=== PATIENT | female | born 1960 | race Caucasian/White ===

== ENCOUNTER → 2017-05-03 11:15 | Outpatient (CLI) | payer OTHER, SELFPAY ==
[2017-05-03 13:57] LABS: Absolute Lymphocyte Count 1.47 X10^3/ul (0.83-4.51); Basophil# 0.01 X10^3/uL; Basophil% 0.2 % (0-1); Eosinophil# 0.24 X10^3/uL; Eosinophils% 3.8 % (0-5); Hematocrit 37.9 % (37-47); Hemoglobin 12.1 g/dl (12.0-15.0); Lymphocyte # 1.47 X10^3/ul (4.0); Lymphocyte % 23.2 % (19-41); Mean Corp Hgb Conc 31.9 g/gl (32-36); Mean Corpuscular Hgb 28.3 pg (27.0-32.0); Mean Corpuscular Volume 88.8 fL (81-99); Mean Platelet Vol. 11.3 fl (6.2-12.0); Monocyte# 0.57 X10^3/uL; Neutrophil # 4.04 X10^3/uL (2.7-7.7); Neutrophil % 63.8 % (47-70); Platelet Count 230 K/mm3 (150-450); RBC Distribution Width CV 13.5 % (11.6-14.6); RBC Distribution Width SD 43.7 fl (35.1-43.9); Red Blood Count 4.27 M/mm3 (4.2-5.4); White Blood Count 6.3 K/mm3 (4.4-11.0)
[2017-05-03 13:59] LABS: POSITIVE COUNT NO; POSITIVE DIFFERENTIAL NO; POSITIVE MORPHOLOGY NO
[2017-05-03 14:24] LABS: AST(SGOT) 17 U/L (15-37); Alanine Aminotransfer ALT/SGPT 31 U/L (13-56); Albumin, Serum 3.7 g/dL (3.2-5.0); Alkaline Phosphatase 86 U/L (45-117); Anion Gap 8 (5-15); BUN 19 mg/dL (7-18); BUN/Creat Ratio 34.7 RATIO (10-20); Calcium,Total 9.6 mg/dL (8.5-10.1); Chloride 106 mmol/L (98-107); Creatinine, Serum 0.55 mg/dL (0.55-1.02); EST Glomerular Filtration Rate 123 mL/min (>60); Est Glom Filt Rate - Afr Amer 148 mL/min (>60); Globulin 3.8 g/dL (2.2-4.2); Glucose 63 mg/dL (74-106); Potassium 3.7 mmol/L (3.5-5.1); Protein, Total 7.5 g/dL (6.4-8.2); Sodium Level 141 mmol/L (136-145)
== END ==
PROVIDERS: Visit Provider Internal Medicine Rheumatology
DX: L40.59 Other psoriatic arthropathy (principal); Z79.899 Other long term (current) drug therapy; L40.8 Other psoriasis; L52 Erythema nodosum; M21.40 Flat foot [pes planus] (acquired), unspecified foot; I10 Essential (primary) hypertension; E03.9 Hypothyroidism, unspecified
CPT/HCPCS: 36415; 80053; 85025

== ENCOUNTER → 2017-05-08 12:04 | Outpatient (CLI) | payer OTHER, SELFPAY ==
--- NOTE | 2017-05-08 12:06 | HPBI_ITS ---
MAMMOGRAPHY - BILATERAL SCREENING REASON FOR EXAM: Female, 56 years old. Routine annual screening examination. PERTINENT HISTORY: Non-contributory. TECHNIQUE: Digital bilateral breast nicolasa (3D mammographic acquisition) in the CC and MLO projections. 2-D mediolateral oblique (MLO) and craniocaudad (CC) views of both breasts were obtained. CAD: Full Field Digital Mammography with Computer Added Detection was performed. COMPARISON: Comparison is made with prior study dated June 15, 2015 and July 01, 2013. FINDINGS: Breast Composition: There are scattered areas of fibroglandular density. There are no dominant masses or suspicious calcifications. No other significant abnormalities are identified. There has been no significant change since the prior study. HPBI/SCREENING MAMM (CAD), BILAT IMPRESSION: Stable bilateral screening mammogram. Yearly follow-up mammogram recommended. (A) ASSESSMENT CATEGORY: BIRADS Category 1: Negative. A letter regarding these results will be sent to the patient by the facility within 30 days. Approximately 10% of breast cancers are not detected by mammography. A normal mammogram should not delay biopsy of a clinically suspicious abnormality. [id number] Electronically Signed: Noel Liz MD at 13:54 EST Tel [phone], Service support ,
== END ==
PROVIDERS: Visit Provider Obstetrics & Gynecology
DX: Z12.31 Encounter for screening mammogram for malignant neoplasm of breast (principal)
CPT/HCPCS: 77063; 77067

== ENCOUNTER 2017-05-13 07:05 | Day surgery (SDC) | payer OTHER, SELFPAY ==
[2017-05-13 07:37] VITALS: BP 139/84; PULSE 65; RESP 16; TEMP 37.1; O2SAT 99; BMI 32.5
--- NOTE | 2017-05-13 07:50 | HP.PCM_ITS ---
Past Medical/Surgical History - Planned Operation Planned Operative Procedure/s: colonoscopy/open access Date of Operative Procedure: 05/13/17 Permit Signed: No S.O.S: No Is This Patient Having a Total Joint: No - Previous Hospitalizations/Surgeries HX Hospitalizations: Yes HX of Surgeries: hernia repair 2010. hysterectomy 2011. 1981 hip surgery/ recosnstruction right. 1984 removed pins from right hip. 1986 tubal ligation. hospitalized 4 yrs ago d/t chest pain Any Problems With Anesthesia: No You/Your Family Experience Fever (Hyperthermia) With Anes: No Cholinesterase deficiency: No - Cardiovascular Hx Chest Pain within Last 2 months: No Hx of Irregular Heartbeat and/or Afib: No Hx Heart Attack: No Hx Congestive Heart Failure: No Hx Rheumatic Fever: No Hx Hypertension: Yes - controlled with med Hx Internal Defibrillator: No Hx Pacemaker: No Hx Cardiac Catheterization: No Hx Cardiac Surgery/Stents/Etc.: No Hx Stress Test: Yes - stress echo 2011 HX Edema: No Hx Pain in Legs when Walking/Leg Cramps: No - Respiratory Chronic Cough: No HX of Shortness of Breath: Yes - slightly sob with 2 flights of stairs Hoarseness: No Hx Chronic Obstructive Pulmonary Disease (COPD): No Hx Asthma: No Hx Emphysema: No Hx Sleep Apnea: No CPAP: No BIPAP: No Hx Oxygen Use at Home: No Hx Respiratory Tract Infection/Cold (presently): No Do You Snore Loudly (louder than talking or can be heard): No Do You Often Feel Tired/ Fatigued/ Sleepy Dring Daytime?: No Has Anyone Observed You Stop Breathing During Sleep?: No Result (for STOP score): Negative Hx Smoking: Yes - quit 03/26 ppd for 5-6 yrs Smoking Status: Former smoker - Gastrointestinal Hx Gastroesophageal Reflux: No Hx Gastrointestinal Disorders: No Hx Gastrointestinal Bleed: No Hx Ulcer: No Hx Hiatal Hernia: No Difficulty Chewing/Swallowing: No Recent Onset of Swallowing Problems: No Special diet followed at home: No Hx Unplanned Weight Loss of 20#: No HX Unplanned Weight Gain of 20#: No - Neurological Hx Seizures: No HX Syncope/Blackout Spells/Unconsciousness: No Hx CVA/Stroke: No Hx Transient Ischemic Attacks (TIA): No Hx Multiple Sclerosis: No Hx Parkinson's Disease: No Hx Head/Neck Injury: No Hx Headaches: No Hx Back Injury/Pain: No Recent Onset of Speech Difficulty: No Restless Legs: No Does patient have nerve stimulator: No Patient instructed to have device shut off: No Rep notified?: No - Blood Disorder Hx Leukemia: No Bleeding Tendencies: No Hx Deep Vein Thrombosis: No Hx High Cholesterol: No Blood Transmitted Disease: No Hx Hepatitis: No Hx Cirrhosis: No Hx Anemia: Yes - in the past Hx Blood Disorders: No - Reproduction : No Is Patient Lactating: No Hx Hysterectomy: Yes Hx Tubal Ligation: Yes Are You Post Menopause: No - Genitourinary Hx Renal Disease: No Hx Dialysis: No - Musculoskeletal Hx Arthritis: Yes - psoratic Hx Rheumatoid Arthritis: No Hx Gout: No Recent Onset of an Orthopedic Problem: No - Endocrine Hx Diabetes: No Thyroid Disease: Yes - on synthroid Hx Steroid Therapy: Yes - prednisone within last yr - Psycho/Social Hx Substance Use: No Hx Alcohol Use: No Hx Anxiety: No Hx Depression: No Mental Illness: No Hx Dementia: No - Miscellaneous Hx Cancer: No Recent Exposure to Contagious Disease: No Active MRSA: No Hx of C-Diff: No Any Loose Teeth: No Allergies nitrous oxide Adverse Reaction (Verified 05/07/17 09:07) Unknown Home Medications Medication Instructions Recorded Levothyroxine [Synthroid] 75 mcg PO DAILY #30 tablet 12/01/14 Adalimumab [Humira] 40 mg SQ Q14D 05/07/17 Losartan/Hydrochlorothiazide 1 tab PO DAILY 05/07/17 [Hyzaar 100-25 Tablet] Maternal No pertinent history Paternal Hypertension - Discharge Is Pt Admitted From a Residential, or a Shelter: No Who Could Help: family After D/C, Where Do you Plan to Go: Return Home - Physical Exam General: Alert, Oriented x3, Cooperative Neck: No JVD Lungs: Normal air movement Cardiovascular: Regular rate, Regular Rhythm Abdomen: Soft, Non Tender, Non-Distended Vital Signs Temp Pulse Resp BP Pulse Ox 98.7 F 65 16 139/84 H 99 05/13/17 07:37 05/13/17 07:37 05/13/17 07:37 05/13/17 07:37 05/13/17 07:37 Oxygen Delivery Method Room Air Weight: 214 lb 1.102 oz Body Mass Index (BMI) 32.5 Assessment/Plan 56-year-old female for screening colonoscopy 1. The patient reports she is having no issues currently. She has no abdominal pain or blood in her stool. She is having no inadvertent weight loss. She has never had a colonoscopy in the past. She has no family history of colon cancer. 2. I explained endoscopy in detail to the patient. I explained the risks including but not limited to stroke or heart attack with anesthesia, perforation of the GI tract, bleeding, infection. I explained that any of these could necessitate further emergency surgery. The patient understands and all questions were answered sufficiently. The patient wishes to proceed with procedure. Santhosh Emmanuel MD Pager: [facility] [address] [place] [address] Office: Surgery Risks - Colonoscopy Risks Include but are not Limited To: Risks include but are not limited to: Bleeding, perforation requiring further surgery, inability to complete colonoscopy requiring barium enema.
--- NOTE | 2017-05-13 08:14 | COLBX_PTH ---
PATIENT: ARLETH CALLAHAN LOC: EN U#:[id number] AGE/SX: 56/F ROOM: RE05/13/[address]: Dr. Santhosh Emmanuel MD : 1960 BED: DIS: 05/13/2017 SPEC #: [id number] RECD: 05/13/17 09:28 STATUS: JAYASHREE VANESSA #: [id number] CORNELL: 05/13/17 08:[address]: Santhosh Emmanuel DEPT: SURGICAL PATHOLOGY RECD BY: Michel Ruelas ENTERED: 05/13/17 13:09 SP TYPE: COLON BX OTHR DR: Out of Town Doctor Tissues: A - Transverse colon B - Sigmoid colon biopsy Procedures: Surgery Specimen Level IV HEADER OPERATION: Colonoscopy with biopsy PRE-OP DIAGNOSIS: Screening TISSUE SUBMITTED: A ? Biopsy of transverse colon polyp, B ? Biopsy sigmoid polyp MICROSCOPIC DIAGNOSIS A. Transverse colon polyp, biopsy: Polypoid fragments of colonic mucosa. B. Sigmoid colon polyp, biopsy: Hyperplastic polyp. Melanosis coli. AM:patricia 05/14/17 COMMENT A. Neither adenomatous nor hyperplastic change is seen. Clinical correlation is suggested. MICROSCOPIC DESCRIPTION Slides are reviewed. GROSS DESCRIPTION A - Received in fixative is one container labeled with the patient's name and designated transverse colon polyp. The specimen consists of multiple irregular fragments of light prince soft tissue that in aggregate measure 0.6 x 0.3 x 0.1 cm. The specimen is totally submitted in one cassette. B - Received in fixative is one container labeled with the patient's name and designated sigmoid colon biopsy. The specimen consists of two irregular fragments of light prince soft tissue that in aggregate measure 0.3 x 0.2 x 0.1 cm. The specimen is totally submitted in one cassette. / AM:patricia 05/13/17 TC:5 CPT: 51774 x2
--- NOTE | 2017-05-13 08:27 | PCM.OPRPT ---
Problem List (1) Screen for colon cancer Status: Acute Report of Operation Date of Procedure: 05/13/17 Pre-Operative Diagnosis: Screening colonoscopy Post-Operative Diagnosis: 1. Transverse colon polyp. 2. Sigmoid colon polyp Surgery/Procedure Performed:: Colonoscopy with cold forceps biopsies Specimen's removed: 1. Transverse colon polyp. 2. Sigmoid colon polyp Description of Procedure: The major risks and benefits associated with the procedure were explained to the patient in detail. The patient verbalized understanding and agreement with the same. The patient was brought to the endoscopy suite. After adequate sedation was achieved, the patient was placed in the left lateral decubitus position and a digital rectal exam was performed. This examination was within normal limits. A well-lubricated colonoscope was then inserted into the rectum and advanced under direct visualization to the level of the cecum. The bowel prep was good. The cecum was identified by both visual and anatomic landmarks. A photograph was taken of the end of the cecum. The scope was then fully withdrawn while examining the color, texture, anatomy and integrity of the mucosa from the cecum to the anal canal. There was a small polyp in the mid transverse colon which was taken with cold forceps. There is also small polyp in the mid sigmoid which was removed completely in a piecemeal fashion with cold forceps. Otherwise the findings were consistent with normal colonic mucosa. Over 6 minutes were taken to examine the colonic mucosa. Upon reaching the rectum the scope was retroflexed to examine the distal rectal vault. The scope was then straightened and was completely retrieved upon exiting the anal canal and the procedure was terminated. The patient was then transferred to the recovery room in stable condition. Recommendations for follow up: Dependent on pathology
[2017-05-13 08:30] VITALS: BP 120/95; BP 139/84; PULSE 65; RESP 16; TEMP 36; O2SAT 98
[2017-05-13 08:35] VITALS: BP 115/79; BP 139/84; PULSE 60; RESP 16; O2SAT 100
[2017-05-13 08:40] VITALS: BP 135/79; BP 139/84; PULSE 62; RESP 16; O2SAT 98
[2017-05-13 08:45] VITALS: BP 110/87; BP 139/84; PULSE 60; RESP 16; TEMP 36.1; O2SAT 100
[2017-05-13 09:22] VITALS: BP 139/84
== END 2017-05-13 09:22 | disposition home or self-care (01) ==
LOC: EN 07:05 → AC 08:43
PROVIDERS: Visit Provider Surgery
PROC: 0DJD8ZZ Inspection of Lower Intestinal Tract, Via Natural or Artificial Opening Endoscopic (ICD-10-PCS; CPT 45378; principal; 2017-05-13 08:10)
DX: Z12.11 Encounter for screening for malignant neoplasm of colon (principal); K63.5 Polyp of colon; K63.89 Other specified diseases of intestine; I10 Essential (primary) hypertension; Z87.891 Personal history of nicotine dependence
CPT/HCPCS: 45380; 88305; J7120

== ENCOUNTER → 2017-07-19 09:54 | Outpatient (CLI) | payer OTHER, SELFPAY ==
[2017-07-19 12:45] LABS: Microalbumin,Random Urine 10.1 mg/L (NO RANGE EST.); Microalbumin:Creatinine Ratio 9.4 mg/g CRE (<30 mg/g CRE)
[2017-07-19 12:51] LABS: Absolute Lymphocyte Count 1.66 X10^3/ul (0.83-4.51); Absolute Neutrophil Count 2.9 X10^3/uL (2.0-7.7); Basophil# 0.01 X10^3/uL; Basophil% 0.2 % (0-1); Eosinophils% 3.8 % (0-5); Hematocrit 37.5 % (37-47); Hemoglobin 12.2 g/dl (12.0-15.0); Lymphocyte # 1.66 X10^3/ul (4.0); Lymphocyte % 31.4 % (19-41); Mean Corp Hgb Conc 32.5 g/gl (32-36); Mean Corpuscular Hgb 28.6 pg (27.0-32.0); Mean Corpuscular Volume 87.8 fL (81-99); Monocyte# 0.47 X10^3/uL; Monocyte% 8.9 % (0-10); Neutrophil # 2.94 X10^3/uL (2.7-7.7); Neutrophil % 55.5 % (47-70); Platelet Count 220 K/mm3 (150-450); RBC Distribution Width CV 13.4 % (11.6-14.6); RBC Distribution Width SD 42.3 fl (35.1-43.9); Red Blood Count 4.27 M/mm3 (4.2-5.4); White Blood Count 5.3 K/mm3 (4.4-11.0)
[2017-07-19 12:58] LABS: POSITIVE COUNT NO; POSITIVE DIFFERENTIAL NO; POSITIVE MORPHOLOGY NO
[2017-07-19 13:01] LABS: AST(SGOT) 23 U/L (15-37); Alanine Aminotransfer ALT/SGPT 35 U/L (13-56); Albumin, Serum 3.8 g/dL (3.2-5.0); Alkaline Phosphatase 76 U/L (45-117); Anion Gap 8 (5-15); BUN 23 mg/dL (7-18); BUN/Creat Ratio 34.5 RATIO (10-20); Calcium,Total 9.7 mg/dL (8.5-10.1); Chloride 107 mmol/L (98-107); Creatinine, Serum 0.67 mg/dL (0.55-1.02); EST Glomerular Filtration Rate 97 mL/min (>60); Est Glom Filt Rate - Afr Amer 118 mL/min (>60); Globulin 3.8 g/dL (2.2-4.2); Glucose 76 mg/dL (74-106); Potassium 3.5 mmol/L (3.5-5.1); Protein, Total 7.6 g/dL (6.4-8.2); Sodium Level 141 mmol/L (136-145); T4 Free Direct 1.36 ng/dL (0.76-1.46); Thyroid Stim Hormone (TSH) 1.04 uIU/mL (0.358-3.74)
[2017-07-25 12:17] LABS: ANTINUCLEAR ANTIBODIES DIRECT Negative (Negative)
== END ==
PROVIDERS: Family Provider Family Medicine; PCP Family Medicine; Visit Provider Family Medicine
DX: M13.0 Polyarthritis, unspecified (principal); E03.9 Hypothyroidism, unspecified; I10 Essential (primary) hypertension; L40.50 Arthropathic psoriasis, unspecified
CPT/HCPCS: 36415; 80053; 82043; 82570; 84439; 84443; 85025; 86038; 86140

== ENCOUNTER → 2017-08-15 12:16 | Outpatient (CLI) | payer OTHER, SELFPAY ==
[2017-08-15 14:46] LABS: Ferritin 66 ng/mL (8-252); Iron 60 ug/dL (50-170); Iron Binding Capacity,Total 286 ug/dL (250-450)
== END ==
PROVIDERS: Family Provider Family Medicine; PCP Family Medicine; Visit Provider Family Medicine
DX: L40.50 Arthropathic psoriasis, unspecified (principal)
CPT/HCPCS: 36415; 82728; 83540; 83550

== ENCOUNTER → 2017-10-14 15:55 | Outpatient (CLI) | payer OTHER, SELFPAY ==
--- NOTE | 2017-10-14 16:09 | MRI_ITS ---
STUDY: MR PELVIS WITHOUT CONTRAST REASON FOR EXAM: Female, 57 years old. Sacroiliitis. Pain across the bilateral sacroiliac area for 2 years. TECHNIQUE: Standardized fat and water weighted pulse sequences were obtained in all 3 orthogonal planes. COMPARISON: Lumbosacral spine x-ray 01/18/2017. X-ray pelvis 09/28/2015. FINDINGS: No acute intrapelvic process is evident. Body wall soft tissues exhibit no acute process. The left hip is normal. There is an irregular region of sclerosis within the right femoral head, extending to the internal margin of the cortical surface without apparent cortical surface disruption. This corresponds with a sclerotic region on prior x-ray suggesting prior decompression of a focus of avascular necrosis. There is mild narrowing of the joint interval suggesting mild chondral degeneration. There is no acute edema of the SI joints. There is sclerosis on both the iliac side and sacral side of the SI joints bilaterally. There is mild irregularity of the articular surfaces. There are small non-fusing anterior osteophytes along the margin of the SI joints. These features are consistent with sequela of chronic sacroiliitis. MRI/Pelvis (Routine) IMPRESSION: Although there is no evidence of acute inflammation of the SI joints at this time, the features described above are consistent with chronic sequela of sacroiliitis, bilateral. Electronically Signed: Michel Orozco, at 10:59 EDT Tel , Service support ,
[2017-10-14 18:35] LABS: Absolute Lymphocyte Count 2.11 X10^3/ul (0.83-4.51); Absolute Neutrophil Count 4.4 X10^3/uL (2.0-7.7); Basophil# 0.01 X10^3/uL; Basophil% 0.1 % (0-1); Hematocrit 36.7 % (37-47); Lymphocyte # 2.11 X10^3/ul (4.0); Lymphocyte % 28.3 % (19-41); Mean Corp Hgb Conc 32.7 g/gl (32-36); Mean Corpuscular Volume 88.6 fL (81-99); Monocyte# 0.62 X10^3/uL; Monocyte% 8.3 % (0-10); Neutrophil # 4.41 X10^3/uL (2.7-7.7); Neutrophil % 59.2 % (47-70); Platelet Count 238 K/mm3 (150-450); RBC Distribution Width CV 13.4 % (11.6-14.6); RBC Distribution Width SD 42.7 fl (35.1-43.9); Red Blood Count 4.14 M/mm3 (4.2-5.4); White Blood Count 7.5 K/mm3 (4.4-11.0)
[2017-10-14 18:45] LABS: POSITIVE COUNT NO; POSITIVE DIFFERENTIAL NO; POSITIVE MORPHOLOGY NO
[2017-10-14 18:46] LABS: Erythrocyte Sedimentation Rate 22 mm/hr (0-30)
[2017-10-14 18:52] LABS: AST(SGOT) 24 U/L (15-37); Alanine Aminotransfer ALT/SGPT 42 U/L (13-56); Albumin, Serum 3.9 g/dL (3.2-5.0); Alkaline Phosphatase 81 U/L (45-117); Bilirubin, Direct 0.07 mg/dL (0.00-0.30); CPK Total, Creatine Kinase 98 U/L (26-192); Creatinine, Serum 0.63 mg/dL (0.55-1.02); EST Glomerular Filtration Rate 103 mL/min (>60); Est Glom Filt Rate - Afr Amer 125 mL/min (>60); Globulin 3.7 g/dL (2.2-4.2); Protein, Total 7.6 g/dL (6.4-8.2); Rheumatoid Factor < 10.0 IU/mL (<15)
[2017-10-14 20:54] LABS: Color, Urine Yellow (Yellow); Glucose, Dipstick Normal (Normal); Ketone-Dipstick Negative (Negative); Leukocyte Esterase-Dipstick 25 /ul (Negative); Nitrite-Dipstick Negative (Negative); Occult Blood-Urine 50 /ul (Negative); Protein-Dipstick Negative (Negative); Urine Bilirubin Dipstick Negative (Negative); Urine Clarity Clear (Clear); Urine Urobilinogen Normal (Normal)
[2017-10-22 14:07] LABS: Albumin 3.9 g/dL (2.9-4.4); Alpha-1-Globulins 0.3 g/dL (0.0-0.4); Alpha-2-Globulins 0.9 g/dL (0.4-1.0); Gamma Globulin 0.9 g/dL (0.4-1.8); Immunoglobulin A 148 mg/dL (87-352); Immunoglobulin G 872 mg/dL (700-1600); PROEL- TOTAL PROTEIN 7.1 g/dL (6.0-8.5); PROELU- Albumin, Urine 30.4 % (.); PROELU- Beta Globulin, Ur 32.4 % (.); PROELU- Gamma Globulin, Ur 19.1 % (.); Total Protein, Ur 11.1 mg/dL (Not Estab.)
[2017-10-23 11:09] LABS: CCP IgG Antibodies 7 units (0-19); HLA B27 Negative (.); Immunoglobulin M < 5 mg/dL (26-217)
== END ==
PROVIDERS: Family Provider Family Medicine; PCP Family Medicine; Visit Provider Internal Medicine Rheumatology
DX: M46.1 Sacroiliitis, not elsewhere classified (principal); M79.1 Myalgia; R53.83 Other fatigue
CPT/HCPCS: 36415; 72195; 80076; 81002; 81374; 82310; 82550; 82565; 82784; 84165; 84166; 84550; 85025; 85652; 86140; 86200; 86334; 86431

== ENCOUNTER → 2017-11-21 10:30 | Outpatient (CLI) | payer OTHER, SELFPAY ==
[2017-11-21 12:39] LABS: Thyroid Stim Hormone (TSH) 1.42 uIU/mL (0.358-3.74)
== END ==
PROVIDERS: Family Provider Family Medicine; PCP Family Medicine; Visit Provider Nurse Practitioner Family
DX: E03.9 Hypothyroidism, unspecified (principal)
CPT/HCPCS: 36415; 84443

== ENCOUNTER → 2018-01-23 10:06 | Outpatient (CLI) | payer OTHER, SELFPAY ==
[2018-01-23 11:58] LABS: Absolute Lymphocyte Count 1.82 X10^3/ul (0.83-4.51); Absolute Neutrophil Count 3.4 X10^3/uL (2.0-7.7); Basophil# 0.02 X10^3/uL; Basophil% 0.3 % (0-1); Eosinophil# 0.32 X10^3/uL; Eosinophils% 5.2 % (0-5); Hemoglobin 11.9 g/dl (12.0-15.0); Lymphocyte # 1.82 X10^3/ul (4.0); Lymphocyte % 29.6 % (19-41); Mean Corp Hgb Conc 32.2 g/gl (32-36); Mean Corpuscular Hgb 28.3 pg (27.0-32.0); Mean Corpuscular Volume 88.1 fL (81-99); Mean Platelet Vol. 11.5 fl (6.2-12.0); Monocyte# 0.54 X10^3/uL; Monocyte% 8.8 % (0-10); Neutrophil # 3.44 X10^3/uL (2.7-7.7); Neutrophil % 55.9 % (47-70); Platelet Count 228 K/mm3 (150-450); RBC Distribution Width CV 13.5 % (11.6-14.6); RBC Distribution Width SD 43.2 fl (35.1-43.9); White Blood Count 6.2 K/mm3 (4.4-11.0)
[2018-01-23 12:05] LABS: POSITIVE COUNT NO; POSITIVE DIFFERENTIAL NO; POSITIVE MORPHOLOGY NO
[2018-01-23 12:27] LABS: AST(SGOT) 17 U/L (15-37); Alanine Aminotransfer ALT/SGPT 28 U/L (13-56); Albumin, Serum 3.7 g/dL (3.2-5.0); Alkaline Phosphatase 78 U/L (45-117); Anion Gap 10 (5-15); BUN 23 mg/dL (7-18); BUN/Creat Ratio 35.8 RATIO (10-20); Calcium,Total 9.5 mg/dL (8.5-10.1); Chloride 108 mmol/L (98-107); Creatinine, Serum 0.64 mg/dL (0.55-1.02); EST Glomerular Filtration Rate 101 mL/min (>60); Est Glom Filt Rate - Afr Amer 123 mL/min (>60); Globulin 3.7 g/dL (2.2-4.2); Glucose 81 mg/dL (74-106); Potassium 3.8 mmol/L (3.5-5.1); Protein, Total 7.4 g/dL (6.4-8.2); Sodium Level 140 mmol/L (136-145)
[2018-01-26 12:06] LABS: Immunoglobulin A 149 mg/dL (87-352); Immunoglobulin G 964 mg/dL (700-1600)
[2018-01-27 11:12] LABS: Immunoglobulin E 18 IU/mL (0-100); Immunoglobulin M 6 mg/dL (26-217)
== END ==
PROVIDERS: Family Provider Family Medicine; PCP Family Medicine; Visit Provider Family Medicine
DX: J06.9 Acute upper respiratory infection, unspecified (principal); D80.4 Selective deficiency of immunoglobulin M [IgM]
CPT/HCPCS: 36415; 80053; 82784; 82785; 85025

== ENCOUNTER → 2018-01-30 11:59 | Outpatient (CLI) | payer OTHER, SELFPAY ==
[2018-01-30 13:22] LABS: Absolute Neutrophil Count 3.6 X10^3/uL (2.0-7.7); Basophil# 0.02 X10^3/uL; Basophil% 0.3 % (0-1); Eosinophil# 0.23 X10^3/uL; Eosinophils% 3.5 % (0-5); Erythrocyte Sedimentation Rate 9 mm/hr (0-30); Hematocrit 36.5 % (37-47); Hemoglobin 11.9 g/dl (12.0-15.0); Lymphocyte % 30.7 % (19-41); Mean Corp Hgb Conc 32.6 g/gl (32-36); Mean Corpuscular Volume 88.8 fL (81-99); Mean Platelet Vol. 11.5 fl (6.2-12.0); Monocyte# 0.64 X10^3/uL; Monocyte% 9.8 % (0-10); Neutrophil # 3.61 X10^3/uL (2.7-7.7); Neutrophil % 55.5 % (47-70); POSITIVE COUNT NO; POSITIVE DIFFERENTIAL NO; POSITIVE MORPHOLOGY NO; Platelet Count 219 K/mm3 (150-450); RBC Distribution Width CV 13.7 % (11.6-14.6); RBC Distribution Width SD 44.2 fl (35.1-43.9); Red Blood Count 4.11 M/mm3 (4.2-5.4); White Blood Count 6.5 K/mm3 (4.4-11.0)
[2018-01-30 13:45] LABS: AST(SGOT) 18 U/L (15-37); Alanine Aminotransfer ALT/SGPT 29 U/L (13-56); Albumin, Serum 3.5 g/dL (3.2-5.0); Alkaline Phosphatase 78 U/L (45-117); Bilirubin, Direct 0.12 mg/dL (0.00-0.30); CRP 6.38 mg/L (0.0-3.0); EST Glomerular Filtration Rate 110 mL/min (>60); Est Glom Filt Rate - Afr Amer 133 mL/min (>60); Globulin 3.7 g/dL (2.2-4.2); Protein, Total 7.2 g/dL (6.4-8.2)
== END ==
PROVIDERS: Family Provider Family Medicine; PCP Family Medicine; Referring Provider Internal Medicine Rheumatology; Visit Provider Internal Medicine Rheumatology
DX: M46.1 Sacroiliitis, not elsewhere classified (principal); Z79.899 Other long term (current) drug therapy
CPT/HCPCS: 36415; 80076; 82565; 85025; 85652; 86140

== ENCOUNTER → 2018-04-22 16:17 | Outpatient (CLI) | payer OTHER, SELFPAY ==
[2018-04-22 20:09] LABS: HIV - WCH Non-Reactive (Nonreactive)
[2018-04-24 15:04] LABS: Immunoglobulin A 158 mg/dL (87-352); Immunoglobulin G 896 mg/dL (700-1600)
[2018-04-24 15:18] LABS: Complement CH50 > 60 U/mL (>41); Immunoglobulin M 8 mg/dL (26-217)
== END ==
PROVIDERS: Family Provider Family Medicine; PCP Family Medicine; Referring Provider Internal Medicine Hematology & Oncology; Visit Provider Internal Medicine Hematology & Oncology
DX: D80.4 Selective deficiency of immunoglobulin M [IgM] (principal)
CPT/HCPCS: 82784; 86162; 86334; 86703

== ENCOUNTER → 2018-08-21 11:01 | Outpatient (CLI) | payer OTHER, SELFPAY ==
[2018-08-21 13:07] LABS: Vitamin D,25 Hydroxy 20.4 ng/mL (29.95-100.01)
[2018-08-21 13:42] LABS: Free T3 2.1 pg/mL (2.18-3.98); T4 Free Direct 1.07 ng/dL (0.76-1.46)
== END ==
PROVIDERS: Family Provider Family Medicine; PCP Family Medicine; Referring Provider Family Medicine; Visit Provider Family Medicine
DX: E03.9 Hypothyroidism, unspecified (principal); L40.50 Arthropathic psoriasis, unspecified
CPT/HCPCS: 36415; 82306; 84439; 84443; 84481

== ENCOUNTER → 2018-11-26 09:52 | Outpatient (CLI) | payer OTHER, SELFPAY ==
[2018-11-26 13:06] LABS: Free T3 2.2 pg/mL (2.18-3.98); T4 Free Direct 1.15 ng/dL (0.76-1.46); Thyroid Stim Hormone (TSH) 2.54 uIU/mL (0.358-3.74)
[2018-11-26 13:14] LABS: Vitamin D,25 Hydroxy 23.1 ng/mL (29.95-100.01)
== END ==
PROVIDERS: Family Provider Family Medicine; PCP Family Medicine; Referring Provider Family Medicine; Visit Provider Family Medicine
DX: E03.9 Hypothyroidism, unspecified (principal); E55.9 Vitamin D deficiency, unspecified
CPT/HCPCS: 36415; 82306; 84439; 84443; 84481

== ENCOUNTER → 2019-05-25 09:54 | Outpatient (CLI) | payer OTHER, SELFPAY ==
[2019-05-25 09:57] LABS: Mucous, Urine 0 SEEN /hpf (<or=2+); Squamous Epithelial Cells - UA 0 SEEN /hpf (5-10)
[2019-05-25 12:42] LABS: Hematocrit 38.3 % (37-47); Hemoglobin 12.2 g/dL (12.0-15.0); Mean Corp Hgb Conc 31.9 g/dL (32-36); Mean Corpuscular Hgb 28.4 pg (27.0-32.0); Mean Corpuscular Volume 89.1 fL (81-99); Mean Platelet Vol. 12.1 fl (6.2-12.0); Platelet Count 218 K/mm3 (150-450); RBC Distribution Width CV 13.6 % (11.6-14.6); RBC Distribution Width SD 43.9 fl (35.1-43.9); White Blood Count 5.2 K/mm3 (4.4-11.0)
[2019-05-25 12:57] LABS: Color, Urine Yellow (Yellow); Glucose, Dipstick Normal (Normal); Ketone-Dipstick Negative (Negative); Leukocyte Esterase-Dipstick 25 /ul (Negative); Nitrite-Dipstick Negative (Negative); Occult Blood-Urine 50 /ul (Negative); Protein-Dipstick Negative (Negative); Urine Bilirubin Dipstick Negative (Negative); Urine Clarity Clear (Clear); Urine Urobilinogen Normal (Normal)
[2019-05-25 13:00] LABS: Vitamin D,25 Hydroxy 38.8 ng/mL
[2019-05-25 13:12] LABS: Anion Gap 5 (5-15); BUN 21 mg/dL (7-18); BUN/Creat Ratio 31.8 RATIO (10-20); Bacteria 1+ /hpf (None Seen); Chloride 108 mmol/L (98-107); Creatinine, Serum 0.66 mg/dL (0.55-1.02); EST Glomerular Filtration Rate 98 mL/min (>60); Est Glom Filt Rate - Afr Amer 119 mL/min (>60); Glucose 84 mg/dL (74-106); Potassium 3.8 mmol/L (3.5-5.1); Red Blood Cells-Urine 0-5 SEEN /hpf (0-5); Sodium Level 139 mmol/L (136-145); Thyroid Stim Hormone (TSH) 1.42 uIU/mL (0.358-3.74); White Blood Cells 0-5 SEEN /hpf (0-5)
== END ==
PROVIDERS: PCP Family Medicine; Referring Provider Family Medicine; Visit Provider Family Medicine
DX: I10 Essential (primary) hypertension (principal); R30.0 Dysuria; E55.9 Vitamin D deficiency, unspecified; E03.9 Hypothyroidism, unspecified; M19.011 Primary osteoarthritis, right shoulder
CPT/HCPCS: 36415; 80048; 81001; 82306; 84443; 85027; 87086; 87088; 87186

== ENCOUNTER 2019-05-29 13:01 | Inpatient (IN) | payer OTHER, SELFPAY ==
[2019-05-29] VITALS (16 sets, daily range): BP systolic 101–158; BP diastolic 39–98; PULSE 73–95; RESP 14–19; TEMP 37–38.6; O2SAT 95–99; BMI 31.9; BMI 33.9
--- NOTE | 2019-05-29 14:15 | CT_ITS ---
STUDY: CT ABDOMEN AND PELVIS WITHOUT CONTRAST REASON FOR EXAM: Female, 58 years old. LEFT FLANK PAIN. RADIATION DOSAGE (If Supplied By Facility): CTDIvol = ( 16.70 ) mGy, DLP = ( 922.05 ) mGycm TECHNIQUE: Transaxial images were obtained from the dome of the diaphragm to the symphysis pubis without oral contrast, and without intravenous contrast. Sagittal and coronal images were reconstructed. Individualized dose optimization techniques were used for this CT. COMPARISON: Comparison is made with prior examination of December 16, 2010. FINDINGS: Minimal increased linear markings at the right lung base suggestive of mild linear atelectasis. The visualized portions of the heart are within normal limits. Normal liver. Normal gallbladder and extrahepatic biliary system. Normal spleen. Normal pancreas. Normal bilateral adrenal glands. 2 mm nonobstructive calculus in the midpole calyx of the right kidney. The left kidney is engorged. There is evidence of a mild degree of left hydronephrosis and left hydroureter with perinephric and periureteric stranding due to a 4.2 mm calculus at the left ureterovesical junction as it enters the urinary bladder. There is a nonobstructive 5.3 mm calculus in the lower pole calyx of the left kidney. A punctate calculus is seen in the mid lower pole calyx of the left kidney as well. There is a small hiatal hernia. Normal small intestine. Normal colon. The appendix is visualized and appears normal. Normal abdominal aorta. Normal inferior vena cava. There is borderline retroperitoneal lymphadenopathy with enlarged nodes no greater than 10mm in the short axis diameter. Normal urinary bladder. There is evidence of the mesh repair of a hernia in the left lower quadrant. There is deformity of the mesh. A normal appearance of the right femoral head and neck most likely secondary to prior medullary nailing. This is unchanged. CT/Abdomen/Pelvis without Cont IMPRESSION: Left hydronephrosis and hydroureter due to a 4.2 mm calculus at the left ureterovesical junction as it enters the urinary bladder. Nonobstructive bilateral intrarenal calculi. Prior mesh repair of a hernia in the left lower quadrant as described. Electronically Signed: Noel Liz, at 15:27 EST , Service support ,
[2019-05-29] MEDS: Ketorolac 15 MG/ML Vial IV ×2 (14:24→23:20)
[2019-05-29] MEDS: 0.9% Normal Saline 1,000 ML 1000 ML IV (14:24)
[2019-05-29] MEDS: Ondansetron 4 MG/2 ML Vial IV (14:24)
[2019-05-29 14:33] LABS: Absolute Lymphocyte Count 0.39 X10^3/uL (0.83-4.51); Absolute Neutrophil Count 1.8 X10^3/uL (2.0-7.7); Basophil# 0.01 X10^3/uL; Basophil% 0.4 % (0-1); Eosinophil# 0.03 X10^3/uL; Eosinophils% 1.3 % (0-5); Hematocrit 38.4 % (37-47); Hemoglobin 12.3 g/dL (12.0-15.0); Lymphocyte # 0.39 X10^3/ul (4.0); Lymphocyte % 17.5 % (19-41); Mean Corpuscular Hgb 28.3 pg (27.0-32.0); Mean Corpuscular Volume 88.5 fL (81-99); Mean Platelet Vol. 11.4 fl (6.2-12.0); Monocyte# 0.01 X10^3/uL; Monocyte% 0.4 % (0-10); NRBC Flagged by Analyzer 0 % (0-5); Neutrophil # 1.78 X10^3/uL (2.7-7.7); POSITIVE DIFFERENTIAL YES; Platelet Count 164 K/mm3 (150-450); RBC Distribution Width CV 13.4 % (11.6-14.6); RBC Distribution Width SD 43.5 fl (35.1-43.9); Red Blood Count 4.34 M/mm3 (4.2-5.4); White Blood Count 2.2 K/mm3 (4.4-11.0)
[2019-05-29 14:38] LABS: Differential Indicated SCAN CRITERIA MET
[2019-05-29 14:56] LABS: Lactic Acid 2.4 mmol/L (0.4-1.9)
[2019-05-29 15:34] LABS: Mucous, Urine 0 SEEN /hpf (<or=2+); Squamous Epithelial Cells - UA 0 SEEN /hpf (5-10)
[2019-05-29 15:38] LABS: Color, Urine Yellow (Yellow); Glucose, Dipstick Normal (Normal); Ketone-Dipstick Negative (Negative); Leukocyte Esterase-Dipstick 100 /ul (Negative); Nitrite-Dipstick Positive (Negative); Occult Blood-Urine 150 /ul (Negative); Protein-Dipstick 15 mg/dl (Negative); Urine Bilirubin Dipstick Negative (Negative); Urine Clarity Sl. Cloudy (Clear); Urine Urobilinogen Normal (Normal); Urine pH 6.5 (5.0 - 8.0)
[2019-05-29 15:49] LABS: ALB/GLOB Ratio 1.1 RATIO (0.9-2.4); AST(SGOT) 18 U/L (15-37); Alanine Aminotransfer ALT/SGPT 29 U/L (13-56); Alkaline Phosphatase 81 U/L (45-117); Anion Gap 4 (5-15); BUN 22 mg/dL (7-18); BUN/Creat Ratio 31.9 RATIO (10-20); Calcium,Total 10.3 mg/dL (8.5-10.1); Chloride 112 mmol/L (98-107); Creatinine, Serum 0.69 mg/dL (0.55-1.02); EST Glomerular Filtration Rate 93 mL/min (>60); Est Glom Filt Rate - Afr Amer 113 mL/min (>60); Estimated Creatinine Clearance 90.74 ml/min; Globulin 3.8 g/dL (2.2-4.2); Glucose 105 mg/dL (74-106); Potassium 3.5 mmol/L (3.5-5.1); Protein, Total 7.8 g/dL (6.4-8.2); Sodium Level 143 mmol/L (136-145)
[2019-05-29 16:08] LABS: Bacteria 1+ /hpf (None Seen); Red Blood Cells-Urine 0-5 SEEN /hpf (0-5); White Blood Cells 5-10 SEEN /hpf (0-5)
[2019-05-29] MEDS: Ceftriaxone 1 GM/50 ML BAG IV ×2 (16:28→23:20)
--- NOTE | 2019-05-29 16:34 | NURSING ---
[id number] DA SILVA [phone] DA SILVA
--- NOTE | 2019-05-29 17:03 | ED.DCSUM_ITS ---
History of Present Illness Chief Complaint: Complaint Informant: Patient Onset: Days Context: Gradual Onset Timing: Continuous Narrative: Patient is a 58-year-old female with history of kidney stones presenting with c oncern for worsening UTI. Patient was seen by her PCP on Saturday. At that time patient was having low back pain and UTI symptoms. Urine culture was sent however urine was not overly concerning for UTI at that time. Urine culture did result is presumptive E. coli sensitive the penicillins and cephalosporins. Patient was called and a prescription for Keflex estimated discharge her first dose this morning. She threw up after taking it. She is continued to have nausea as well as worsening back pain and chills. The pain to be worse on the left than the right. She states it is constant. She states her bowel movements been normal. She denies any other complaints at this time. Patient does not currently have a urologist, but would like to see Dr. Alysia schafer. Past Medical History - Allergies and Home Meds Allergies/Adverse Reactions: Allergies nitrous oxide Adverse Reaction (Verified 05/29/19 13:04) Unknown Primary Care Physician: Fly Parker MD [Primary Care Provider] - Past Medical History: - - Kidney stones Surgical History: herniorrhaphy, hysterectomy, - Smoking Status: Former smoker - Family History Maternal Family History: Reports: No pertinent history Paternal Family History: Reports: Hypertension Review of Systems General: Reports: Malaise. Denies: Chills, Fever, Sweats Eyes: Denies: Visual changes - bilaterally, Diplopia ENT: Denies: Rhinorrhea, Sore throat Cardiovascular: Denies: Chest pain, Palpitations Respiratory: Denies: Dyspnea, Cough, Dyspnea on exertion Gastrointestinal: Reports: Abdominal pain, Nausea, Vomiting. Denies: Diarrhea, Melena, Hematochezia Genitourinary: Reports: Dysuria. Denies: Hematuria, Frequency Musculoskeletal: Reports: Back pain. Denies: Extremity Pain Skin: Denies: Rash, Wounds Neurological: Denies: Headache, Weakness, Numbness Physical Exam Vital Signs/Narrative: Vital Signs Temp Pulse Resp BP Pulse Ox 05/29/19 16:13 98.6 F 89 18 131/82 H 98 05/29/19 15:14 98.6 F 78 18 148/80 H 98 05/29/19 14:27 98.6 F 77 18 156/98 H 98 Inital Vital Signs reviewed: Yes General: Well nourished, Well developed, No Acute Distress Head: Normocephalic, Atraumatic Eyes: Perrl, EOMI ENT: Moist mucous membranes, No rhinorrhea Neck: Supple, Nontender, No JVD Cardiovascular: Regular rate, Regular rhythm, No murmurs. Negative for: Tachycardia Respiratory: No distress, CTA bilaterally, Chest nontender Abdomen: Soft, Nontender, Nondistended, Normal bowel sounds. Negative for: Guarding, Rebound tenderness Back: Nontender, Normal Inspection. Negative for: CVA tenderness, Spinal tenderness Extremities: Nontender, No edema Skin: Normal color, No rash Neurological: Alert, Oriented x3, Cranial nerves II-XII grossly intact, Normal Strength, Normal Sensation Psychological: Normal affect, Normal Mood Diagnostic/Tx/Re-eval Clinical Impression(s) from Imaging Studies Abdomen/Pelvis CT 05/29/19 14:15 IMPRESSION: Left hydronephrosis and hydroureter due to a 4.2 mm calculus at the left ureterovesical junction as it enters the urinary bladder. Nonobstructive bilateral intrarenal calculi. Prior mesh repair of a hernia in the left lower quadrant as described. Electronically Signed: Noel Agusto, at 15:27 EST , Service support , Laboratory Data 05/29/19 05/29/19 05/29/19 14:00 14:00 14:00 WBC 2.2 L RBC 4.34 Hgb 12.3 Hct 38.4 MCV 88.5 MCH 28.3 MCHC 32.0 RDW Std Deviation 43.5 RDW Coeff of Jarocho 13.4 Plt Count 164 MPV 11.4 Immature Gran % (Auto) 0.400 Neut % (Auto) 80.0 H Lymph % (Auto) 17.5 L [place] % (Auto) 0.4 Eos % (Auto) 1.3 Baso % (Auto) 0.4 Absolute Neuts (auto) 1.8 L Absolute Lymphs (auto) 0.39 L Nucleated RBC % 0 Differential Comment COMMENT Diff Path Review May foll Sodium 143 Potassium 3.5 Chloride 112 H Carbon Dioxide 27.0 Anion Gap 4 L BUN 22 H Creatinine 0.69 Estim Creat Clear Calc 90.74 Est GFR (MDRD) Af Amer 113 Est GFR (MDRD) Non-Af 93 BUN/Creatinine Ratio 31.9 H Glucose 105 Lactic Acid 2.4 H* Calcium 10.3 H Total Bilirubin 0.60 AST 18 ALT 29 Alkaline Phosphatase 81 Total Protein 7.8 Albumin 4.0 Globulin 3.8 Albumin/Globulin Ratio 1.1 Urine Color Urine Clarity Urine pH Ur Specific [place] Urine Protein Urine Glucose (UA) Urine Ketones Urine Occult Blood Urine Nitrite Urine Bilirubin Urine Urobilinogen Ur Leukocyte Esterase Urine RBC Urine WBC Ur Squamous Epith Cells Urine Bacteria Urine Mucus 05/29/19 15:30 WBC RBC Hgb Hct MCV MCH MCHC RDW Std Deviation RDW Coeff of [place] Plt Count MPV Immature Gran % (Auto) Neut % (Auto) Lymph % (Auto) [place] % (Auto) Eos % (Auto) Baso % (Auto) Absolute Neuts (auto) Absolute Lymphs (auto) Nucleated RBC % Differential Comment Diff Path Review Sodium Potassium Chloride Carbon Dioxide Anion Gap BUN Creatinine Estim Creat Clear Calc Est GFR (MDRD) Af Amer Est GFR (MDRD) Non-Af BUN/Creatinine Ratio Glucose Lactic Acid Calcium Total Bilirubin AST ALT Alkaline Phosphatase Total Protein Albumin Globulin Albumin/Globulin Ratio Urine Color Yellow Urine Clarity Sl. Cloudy Urine pH 6.5 Ur Specific [place] 1.010 Urine Protein 15 H Urine Glucose (UA) Normal Urine Ketones Negative Urine Occult Blood 150 H Urine Nitrite Positive H Urine Bilirubin Negative Urine Urobilinogen Normal Ur Leukocyte Esterase 100 H Urine RBC 0-5 SEEN Urine WBC 5-10 SEEN Ur Squamous Epith Cells 0 SEEN Urine Bacteria 1+ Urine Mucus 0 SEEN - Medical Decision Making Patient is evaluated for worsening myalgias, UTI symptoms and back pain. She th rew up her antibiotics. She does have a history of kidney stones. CT flank obtained to rule out stone. It does show a left 4 mm stone at the UVJ. This with signs of infection is concerning for septic stone. Edition patient's lactate is 2.2. While she is in the ER she did spike a fever and trigger the sepsis protocol. Patient does have sepsis but does not have findings consistent with severe sepsis or septic shock. She started on IV Rocephin which the urine culture from earlier this week was sensitive to. Discussed with Dr. Hatfield, urology, who admit the patient and plans for taking her for stent tomorrow. Patient stable for the general medical floor at time of disposition. She is agreeable with this plan. She is given initially Zofran and Toradol for symptoms and declines morphine. She is given Tylenol for her fever and continues to decline any morphine even though her pain is starting to come back after receiving the Toradol. ED Disposition - Plan for ED Patient: Disposition: Acute Care Hospital [facility] Diagnosis: Kidney stone on left side, UTI (urinary tract infection), Sepsis Referrals: Fly Parker MD [Primary Care Provider] -
--- NOTE | 2019-05-29 17:12 | ED.RN ---
pt states she feels warm and shaking a bit. repeat temp ta due to pt eating a ice chip. 101,5
--- NOTE | 2019-05-29 17:18 | ED.RN ---
dr holliday notified of pt now triggering sepsis alert. order to continue with current plan of care
--- NOTE | 2019-05-29 17:24 | ED.RN ---
dr holliday aware of sepsis trigger. will order tylenol for temp. pt agrees to be admitted
--- NOTE | 2019-05-29 17:31 | NURSING ---
315 OBS SEPTIC KIDNEY STONE AVINASH
[2019-05-29 18:23] LABS: Reflex Lactate? Y
--- NOTE | 2019-05-29 18:35 | NURSING ---
Report called to Jessica GREEN in ICU
[2019-05-29] MEDS: Acetaminophen 500 MG Tablet 1000 MG PO (19:01)
[2019-05-29 19:10] LABS: Lactic Acid 1.4 mmol/L (0.4-1.9)
--- NOTE | 2019-05-29 19:47 | CON.PCM_ITS ---
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 She describes abdominal pain as aching, sharp and pressure. Her pain is constant but with varying severity. Her pain is located at her bilateral lower abdomen. It radiates to bilateral flank. The pain is more intense at the left flank. The pain radiates into her groin. Highest severity is 8 out of 10. Associated with symptoms is subjective fever, chills, rigors, nausea and vomiting. Four days ago because of urinary symptoms urine culture was done. The urine culture showed presumptive E. coli sensitive to ampicillin and cephalosporins. On the day of presentation patient took a prescribed dose of Keflex. However she vomited. Patient reported about a month ago she had symptoms of UTI and she took amoxicillin. On this visit at the emergency department patient was found to have heart rate of more than 90. She spiked a fever with highest temperature of 101.5 Fahrenheit. She was found to have low white count of 2.2. Her lactic acid was elevated at 2.4. Abdomen and pelvis CT showed left hydronephrosis and hydroureter due to a 4.3 mm calculus at the left ureterovesical junction as it enters the urinary bladder. Nonobstructive bilateral intrarenal calculi. Past Medical History Past Medical History (Chronic Problems): Chronic Problems Hypothyroidism (Chronic) Allergies nitrous oxide Adverse Reaction (Verified 05/29/19 13:04) Unknown Home Medications: Ambulatory Orders Medication Instructions Recorded Cholecalciferol (Vitamin D3) 4,000 unit PO DAILY 05/29/19 [Vitamin D3] Levothyroxine [Synthroid] 100 mcg PO DAILY 05/29/19 Losartan/Hydrochlorothiazide 1 ea PO DAILY 05/29/19 [Losartan-Hctz 100-12.5 mg Tab] Surgical History: herniorrhaphy, hysterectomy, - Lives: Spouse/ Significant Other Smoking Status: Former smoker Alcohol: Rare - *Family History Maternal History Items: COPD, Heart Disease, Hypertension Paternal History Items: Cancer - Multiple myeloma, Diabetes, Hypertension Review of Systems Constitutional: Reports: Chills, Fever - Subjective. Denies: Weight Change HEENT: Denies: Head Aches, Sinus Congestion, Sinus Drainage Cardiovascular: Denies: Chest Pain, Palpitations Respiratory: Denies: Cough, Shortness of breath at rest, Sputum production Gastrointestinal: Reports: Abdominal Pain, Nausea, Vomiting Genitourinary: Denies: Dysuria Musculoskeletal: Denies: Joint Pain, Joint Tenderness Skin: Denies: Rash, Wounds Neurological: Denies: Numbness, Tingling, Focal weakness Psychiatric: Denies: Anxiety, Depression, Homicidal Ideations, Suicidal Ideations Hematologic/ Lymphatic: Denies: Easy Bruising, Easy Bleeding Patient Problems: Active and Suspected Problems Kidney stone on left side (Acute) UTI (urinary tract infection) (Acute) Severe sepsis (Acute) - Physical Exam Vitals/I&O's: Vital Signs Temp Pulse Resp BP Pulse Ox 99.4 F H 95 18 148/77 H 98 05/29/19 18:10 05/29/19 18:10 05/29/19 18:10 05/29/19 18:10 05/29/19 18:10 Oxygen Delivery Method Room Air Weight: 101.2 kg Body Mass Index (BMI) 33.9 Intake and Output for Last 24 Hours 05/27/19 05/28/19 05/29/19 23:59 23:59 23:59 Intake Total 1050 / 1050 Balance 1050 / 1050 General: Alert, Oriented x3, Cooperative HEENT: Atraumatic, PERRLA, EOMI, Normocephalic Neck: Supple, No JVD, Negative Carotid Bruits Lungs: Clear to auscultation, Normal air movement Cardiovascular: Regular rate, Normal S1, Normal S2, No murmurs Abdomen: Bowel Sounds Present, Soft, Non Tender Extremities: No edema, Capillary Refill Less than 3 Seconds Skin: No rashes, No breakdown Musculoskeletal: No Tenderness to Palpation of Joints or Extremities Neurological: Cranial nerves II-XII grossly intact Psych/Mental Status: Normal Affect, Appropriate Laboratory Results 05/29/19 14:00: WBC 2.2 L, RBC 4.34, Hgb 12.3, Hct 38.4, MCV 88.5, MCH 28.3, MCHC 32.0, RDW Std Deviation 43.5, RDW Coeff of Jarocho 13.4, Plt Count 164, MPV 11.4, Immature Gran % (Auto) 0.400, Neut % (Auto) 80.0 H, Lymph % (Auto) 17.5 L, [place] % (Auto) 0.4, Eos % (Auto) 1.3, Baso % (Auto) 0.4, Absolute Neuts (auto) 1.8 L, Absolute Lymphs (auto) 0.39 L, Nucleated RBC % 0, Differential Comment COMMENT, Diff Path Review July05/29/19 14:00: Sodium 143, Potassium 3.5, Chloride 112 H, Carbon Dioxide 27.0, Anion Gap 4 L, BUN 22 H, Creatinine 0.69, Estim Creat Clear Calc 90.74, Est GFR (MDRD) Af Amer 113, Est GFR (MDRD) Non-Af 93, BUN/Creatinine Ratio 31.9 H, Glucose 105, Calcium 10.3 H, Total Bilirubin 0.60, AST 18, ALT 29, Alkaline Phosphatase 81, Total Protein 7.8, Albumin 4.0, Globulin 3.8, Albumin/Globulin Ratio 1.1 05/29/19 14:00: Lactic Acid 2.4 H* 05/29/19 15:30: Urine Color Yellow, Urine Clarity Sl. Cloudy, Urine pH 6.5, Ur Specific [place] 1.010, Urine Protein 15 H, Urine Glucose (UA) Normal, Urine Ketones Negative, Urine Occult Blood 150 H, Urine Nitrite Positive H, Urine Bilirubin Negative, Urine Urobilinogen Normal, Ur Leukocyte Esterase 100 H, Urine RBC 0-5 SEEN, Urine WBC 5-10 SEEN, Ur Squamous Epith Cells 0 SEEN, Urine Bacteria 1+, Urine Mucus 0 SEEN 05/29/19 18:41: Lactic Acid 1.4 Current Medications Sodium Chloride () 250 mls @ 15 mls/hr IV .[id number] PRN PRN Reason: Saline Flush Sodium Chloride () 250 mls @ 15 mls/hr IV .[id number] PRN PRN Reason: Additional IVPB Infusion Sodium Chloride () 10 - 40 ml IV UD PRN PRN Reason: SALINE FLUSH Assessment/Plan All Active Problems Kidney stone on left side (Acute) UTI (urinary tract infection) (Acute) Severe sepsis (Acute) The patient is a 58 year old F with a significant history of psoriatic arthritis; vitamin D deficient; hypothyroidism; and hypertension who presented to emergency department with 1 day history of lower abdominal pain; recent urinary symptoms and found to meet SIRS criteria and with a CT of the abdomen and pelvis with finding of left hydronephrosis and hydroureter as well as 4.2 mm calculus at the left ureterovesicular junction consistent with severe sepsis secondary to infected kidney stones and pyelonephritis Severe sepsis secondary to infected kidney stones and pyonephritis Abdomen and pelvis CT findings as in HPI. Lactic acid of 2.4 which has trended down. Outpatient urine culture showed presumptive E. coli sensitive to penicillin cephalosporins. Urine culture and blood cultures are pending. At the emergency department urinalysis was abnormal. Received ceftriaxone 1 g in emergency department. Will do ceftriaxone 1 g every 12 hours. Continue saline hydration. Toradol and morphine for pain. Zofran for antiemetics. Urology is primary. Plan is for stenting in a.m.. We will keep n.p.o. after midnight. Hypothyroidism Synthroid continued Hypertension Losartan hydrochlorothiazide continued Trend blood pressure and adjust blood pressure medications as necessary. Obesity: BMI of 33.9. Complicates care. DVT prophylaxis Subcutaneous Lovenox Office Visits / Consults: [id number] IP Consult L4
--- NOTE | 2019-05-29 22:00 | NURSING ---
1L BAG OF NS FROM ED INFUSING @ 75ML/HR.
[2019-05-30] VITALS (12 sets, daily range): BP systolic 90–143; BP diastolic 39–73; PULSE 66–99; RESP 14–24; TEMP 36.6–37.2; O2SAT 93–100
--- NOTE | 2019-05-30 | CALC_PTH ---
PATIENT: ARLETH CALLAHAN LOC: ICU U#:[id number] AGE/SX: 58/F ROOM: [place] [address] RE05/30/[address]: Dr. Effie Glasgow MD : 1960 BED: 1 DIS: 05/30/2019 SPEC #: [id number] RECD: 06/01/19 08:24 STATUS: JAYASHREE REQ #: [id number] CORNELL: 05/30/19 00:[address]: Effie Glasgow DEPT: SURGICAL PATHOLOGY RECD BY: Silvino Graves ENTERED: 06/01/19 08:24 SP TYPE: Calculi OTHR DR: MD Dr. Candie Boyce MD Dr. Carissa San Juan, MD Dr. Mary Catherine Sementi, MD Dr. Torsten Stewart Dr., MD Daniel Manz, MD Dr. Eric Jopperi, MD Dr. Car Rodriguez Dr., MD Dr. Gretzel King, MD Dr. Ifijen Oleghe, MD Dr. Joseph Agyepong, MD Dr. Kathryn Lee, DO Dr. Janey Ellis Dr., MD Dr. Nicholas F Kotsonis, MD Dr. Nhan Luu, MD Dr. Prakash Chand, MD Dr. Paul Nielsen, MD Dr. Paul Steinberger, MD Dr. Ruta Semaskiene, MD Christen Cheuvront, [employer] Viv Parks, [employer] Miah Motley, [employer] CALVIN Joaquin PA Sean T Francis, PA Tissues: CALCULI Procedures: Surgery Specimen Level I HEADER OPERATION: Not noted PRE-OP DIAGNOSIS: Calculus TISSUE SUBMITTED: Calculus GROSS DIAGNOSIS Renal calculus, removal: Unremarkable calculus (gross diagnosis only). AM:patricia 06/02/19 COMMENT The calculus is submitted in its entirety for chemical stone analysis. The results from this study will be reported separately. GROSS DESCRIPTION Received is one container labeled with the patient's name and designated calculus. The specimen consists of a light prince calculus measuring 0.5 x 0.2 x 0.2 cm. The specimen is submitted in its entirety for chemical stone analysis. / AM:patricia 06/01/19 CPT: 75686
[2019-05-30 04:50] LABS: Absolute Lymphocyte Count 1.15 X10^3/uL (0.83-4.51); Absolute Neutrophil Count 11.4 X10^3/uL (2.0-7.7); Basophil# 0.02 X10^3/uL; Basophil% 0.1 % (0-1); Eosinophil# 0.05 X10^3/uL; Eosinophils% 0.4 % (0-5); Hematocrit 30.2 % (37-47); Hemoglobin 9.9 g/dL (12.0-15.0); Lymphocyte # 1.15 X10^3/ul (4.0); Lymphocyte % 8.6 % (19-41); Mean Corp Hgb Conc 32.8 g/dL (32-36); Mean Corpuscular Hgb 28.4 pg (27.0-32.0); Mean Corpuscular Volume 86.8 fL (81-99); Mean Platelet Vol. 11.5 fl (6.2-12.0); Monocyte# 0.68 X10^3/uL; Monocyte% 5.1 % (0-10); NRBC Flagged by Analyzer 0 % (0-5); Neutrophil # 11.39 X10^3/uL (2.7-7.7); Neutrophil % 85.4 % (47-70); Platelet Count 155 K/mm3 (150-450); RBC Distribution Width CV 13.6 % (11.6-14.6); RBC Distribution Width SD 42.5 fl (35.1-43.9); Red Blood Count 3.48 M/mm3 (4.2-5.4); White Blood Count 13.4 K/mm3 (4.4-11.0)
[2019-05-30 05:02] LABS: Anion Gap 6 (5-15); BUN 18 mg/dL (7-18); BUN/Creat Ratio 30.9 RATIO (10-20); Calcium,Total 8.8 mg/dL (8.5-10.1); Chloride 110 mmol/L (98-107); Creatinine, Serum 0.58 mg/dL (0.55-1.02); EST Glomerular Filtration Rate 113 mL/min (>60); Est Glom Filt Rate - Afr Amer 137 mL/min (>60); Estimated Creatinine Clearance 107.95 ml/min; Glucose 92 mg/dL (74-106); Potassium 3.4 mmol/L (3.5-5.1); Sodium Level 142 mmol/L (136-145)
[2019-05-30] MEDS: 0.9% Normal Saline 1,000 ML 75 ML IV (05:05)
[2019-05-30 05:20] LABS: Thyroid Stim Hormone (TSH) 1.09 uIU/mL (0.358-3.74)
[2019-05-30] MEDS: 0.9% Saline Lock 10 ML Syringe IV ×2 (05:33→06:51)
[2019-05-30] MEDS: Ketorolac 15 MG/ML Vial IV (06:51)
[2019-05-30] MEDS: Levothyroxine 100 MCG Tablet PO (06:51)
--- NOTE | 2019-05-30 09:28 | HP.PCM_ITS ---
Problem List (1) Kidney stone on left side Status: Acute (2) UTI (urinary tract infection) Status: Acute (3) Sepsis Status: Inactive History of Present Illness Date of Admission: 05/29/19 Chief Complaint: left flank pain The patient is a 58 year old F with a history of urolithiasis, never had surgical intervention in the past. Started having intermittent left-sided flank pain approximately 3 to 4 weeks ago but it was not severe. Over the course of the last week it increased and she began to have lower urinary tract symptoms as well. She was seen for a well visit by her primary care physician who cultured her urine. The urine culture came back on and by that time she had developed nausea and vomiting. Upon awakening yesterday morning, the pain was severe and she was unable to tolerate p.o. intake and presented to the emergency department. Due to her laboratory values, she was admitted to the ICU. Supportive care was given. During the middle of the night she passed the stone and began to feel significantly better. At this time she would like to go home. Last episode of passing a stone was approximately 8 to 9 years ago. Past Medical History Past Medical History (Chronic Problems): Chronic Problems Hypothyroidism (Chronic) Allergies nitrous oxide Adverse Reaction (Verified 05/29/19 13:04) Unknown Home Medications: Ambulatory Orders Medication Instructions Recorded Cholecalciferol (Vitamin D3) 4,000 unit PO DAILY 05/29/19 [Vitamin D3] Levothyroxine [Synthroid] 100 mcg PO DAILY 05/29/19 Losartan/Hydrochlorothiazide 1 ea PO DAILY 05/29/19 [Losartan-Hctz 100-12.5 mg Tab] Surgical History: herniorrhaphy, hysterectomy, - Lives: Spouse/ Significant Other Smoking Status: Former smoker Alcohol: Rare - *Family History Maternal History Items: COPD, Heart Disease, Hypertension Paternal History Items: Cancer - Multiple myeloma, Diabetes, Hypertension Review of Systems Constitutional: Reports: Fever, Malaise, Fatigue Eyes: Denies: Vision Change HEENT: Denies: Difficulty Hearing, Visual Changes Cardiovascular: Denies: Chest Pain Respiratory: Denies: Shortness of Breath Gastrointestinal: Reports: Abdominal Pain, Nausea, Vomiting Genitourinary: Reports: Dysuria, Frequency, Urgency Musculoskeletal: Reports: Muscle pain - generalized aches Skin: Denies: Wounds Neurological: Denies: Tremor Comment: stone observed at bedside. It is consistent with the stone seen on the CT scan VTE Information - Inpt Only VTE Present on Admission: Yes VTE Mechan Device Prophylaxis: SCD's Patient Problems: Active and Suspected Problems Kidney stone on left side (Acute) UTI (urinary tract infection) (Acute) Severe sepsis (Acute) - Physical Exam Vitals/I&O's: Vital Signs Temp Pulse Resp BP Pulse Ox 98.6 F 74 17 116/54 L 97 05/30/19 05:00 05/30/19 07:00 05/30/19 07:00 05/30/19 07:00 05/30/19 07:00 Oxygen Delivery Method Room Air Weight: 99.6 kg Body Mass Index (BMI) 33.9 Intake and Output for Last 24 Hours 05/28/19 05/29/19 05/30/19 23:59 23:59 23:59 Intake Total 1650 / 1700 1010 / 1010 Output Total 800 / 800 Balance 1650 / 1700 210 / 210 General: Alert, Oriented x3, Cooperative, No apparent distress HEENT: Atraumatic, Normocephalic Oral: Moist Mucosa Neck: Supple, Trachea Midline Lungs: Normal air movement Cardiovascular: Regular rate, Regular Rhythm Abdomen: Non Tender, - - left CVA tenderness Extremities: No Calf Tenderness Skin: No rashes Musculoskeletal: No Muscle Wasting Neurological: Cranial nerves II-XII grossly intact Psych/Mental Status: Normal Affect, Alert and oriented to time, place, person, mood and affect Microbiology Past 72 Hours 05/29/19 14:00 Blood Culture (Wb) - No Site/Description Given Blood Culture - Preliminary Laboratory Results 05/29/19 14:00: WBC 2.2 L, RBC 4.34, Hgb 12.3, Hct 38.4, MCV 88.5, MCH 28.3, MCHC 32.0, RDW Std Deviation 43.5, RDW Coeff of Jarocho 13.4, Plt Count 164, MPV 11.4, Immature Gran % (Auto) 0.400, Neut % (Auto) 80.0 H, Lymph % (Auto) 17.5 L, [place] % (Auto) 0.4, Eos % (Auto) 1.3, Baso % (Auto) 0.4, Absolute Neuts (auto) 1.8 L, Absolute Lymphs (auto) 0.39 L, Nucleated RBC % 0, Differential Comment COMMENT, Diff Path Review July foll 05/29/19 14:00: Sodium 143, Potassium 3.5, Chloride 112 H, Carbon Dioxide 27.0, Anion Gap 4 L, BUN 22 H, Creatinine 0.69, Estim Creat Clear Calc 90.74, Est GFR (MDRD) Af Amer 113, Est GFR (MDRD) Non-Af 93, BUN/Creatinine Ratio 31.9 H, Glucose 105, Calcium 10.3 H, Total Bilirubin 0.60, AST 18, ALT 29, Alkaline Phosphatase 81, Total Protein 7.8, Albumin 4.0, Globulin 3.8, Albumin/Globulin Ratio 1.1 05/29/19 14:00: Lactic Acid 2.4 H* 05/29/19 15:30: Urine Color Yellow, Urine Clarity Sl. Cloudy, Urine pH 6.5, Ur Specific [place] 1.010, Urine Protein 15 H, Urine Glucose (UA) Normal, Urine Ketones Negative, Urine Occult Blood 150 H, Urine Nitrite Positive H, Urine Bilirubin Negative, Urine Urobilinogen Normal, Ur Leukocyte Esterase 100 H, Urine RBC 0-5 SEEN, Urine WBC 5-10 SEEN, Ur Squamous Epith Cells 0 SEEN, Urine Bacteria 1+, Urine Mucus 0 SEEN 05/29/19 18:41: Lactic Acid 1.4 05/30/19 04:40: WBC 13.4 H, RBC 3.48 L, Hgb 9.9 L, Hct 30.2 L, MCV 86.8, MCH 28.4, MCHC 32.8, RDW Std Deviation 42.5, RDW Coeff of Jarocho 13.6, Plt Count 155, MPV 11.5, Immature Gran % (Auto) 0.400, Neut % (Auto) 85.4 H, Lymph % (Auto) 8.6 L, [place] % (Auto) 5.1, Eos % (Auto) 0.4, Baso % (Auto) 0.1, Absolute Neuts (auto) 11.4 H, Absolute Lymphs (auto) 1.15, Nucleated RBC % 0 05/30/19 04:40: Sodium 142, Potassium 3.4 L, Chloride 110 H, Carbon Dioxide 26.0, Anion Gap 6, BUN 18, Creatinine 0.58, Estim Creat Clear Calc 107.95, Est GFR (MDRD) Af Amer 137, Est GFR (MDRD) Non-Af 113, BUN/Creatinine Ratio 30.9 H, Glucose 92, Calcium 8.8 05/30/19 04:40: TSH 1.09 Current Medications Cholecalciferol (Vitamin [facility] (25mcg)) [facility] Hydrochlorothiazide () 12.5 mg PO DAILY [facility] Sodium Chloride () 250 mls @ 15 mls/hr IV .[id number] PRN PRN Reason: Saline Flush Sodium Chloride () 250 mls @ 15 mls/hr IV .[id number] PRN PRN Reason: Additional IVPB Infusion Ceftriaxone Sodium (Rocephin) 1 gm in 50 mls @ 100 mls/hr IV Q12 [facility] Last Infusion: 05/30/19 00:00 Dose: Infused Documented by: Sodium Chloride () 1,000 mls @ 75 mls/hr IV .[id number] [facility] Last Admin: 05/30/19 05:05 Dose: 75 mls/hr Documented by: Ketorolac Tromethamine (Toradol (Bkc)) 15 mg IV Q6H PRN PRN PRN Reason: pain 5-6/10 Stop: 06/03/19 20:28 Last Admin: 05/30/19 06:51 Dose: 15 mg Documented by: Levothyroxine Sodium (Synthroid) 100 mcg PO DAILY@0600 [facility] Last Admin: 05/30/19 06:51 Dose: 100 mcg Documented by: Losartan Potassium (Cozaar) 100 mg PO DAILY [facility] Morphine Sulfate () 2 mg IV Q4H PRN PRN PRN Reason: pain 7-10/10 Ondansetron HCl (Zofran) 4 mg IV Q6H PRN PRN PRN Reason: NAUSEA/VOMITING Sodium Chloride () 10 - 40 ml IV UD PRN PRN Reason: SALINE FLUSH Last Admin: 05/30/19 06:51 Dose: 10 ml Documented by: Assessment/Plan All Active Problems Kidney stone on left side (Acute) UTI (urinary tract infection) (Acute) Severe sepsis (Acute) Passed the stone, stent procedure was canceled. Home today if tolerating PO appropriately, on 2 weeks of appropriate antibiotic coverage. Will need to have 24hr UA in about 4-6 weeks as still with several stones in bilateral kidneys. Repeat renal ultrasound in few weeks. continue supportive care. Appreciate ICU consult.
--- NOTE | 2019-05-30 09:36 | DCINST_ITS ---
Discharge Diet: No Restrictions Discharge Activity: Return to Normal Activity, May Drive, May Shower May resume sexual activity in: 2 weeks Call your doctor if you observe: Fever of 101 or Higher, Inability to urinate, Inability to have a bowel movement, Uncontrolled pain Allergies/Adverse Reactions: Allergies nitrous oxide Adverse Reaction (Verified 05/29/19 13:04) Unknown Medications to take at Discharge Cholecalciferol (Vitamin D3) [Vitamin D3] 4,000 unit PO DAILY 05/29/19 Levothyroxine [Synthroid] 100 mcg PO DAILY 05/29/19 Losartan/Hydrochlorothiazide [Losartan-Hctz 100-12.5 mg Tab] 1 ea PO DAILY 05/29/19 Primary Care Physician: Fly Parker MD [Primary Care Provider] - Test Results: Test results from this visit will be discussed in further detail at your follow- up appointment, if applicable. Please Follow Up With: Effie Glasgow MD When: call for appt to be seen in 2-3 weeks Proposed Discharge Date: 05/30/19
[2019-05-30] MEDS: Acetaminophen 325 MG Tablet 650 MG PO (09:48)
[2019-05-30] MEDS: Ceftriaxone 1 GM/50 ML BAG IV (11:01)
--- NOTE | 2019-05-30 11:25 | PCM.PN.HOSP ---
Patient Problems: Active and Suspected Problems Kidney stone on left side (Acute) UTI (urinary tract infection) (Acute) Severe sepsis (Acute) Reason for Visit: UTI Subjective: Feels better. Vitals/I&O's: Vital Signs Temp Pulse Resp BP Pulse Ox 37.0 C 74 17 116/54 L 97 05/30/19 05:00 05/30/19 07:00 05/30/19 07:00 05/30/19 07:00 05/30/19 07:00 Oxygen Delivery Method Room Air Weight: 99.6 kg Body Mass Index (BMI) 33.9 Intake and Output for Last 24 Hours 05/28/19 05/29/19 05/30/19 23:59 23:59 23:59 Intake Total 1650 / 1700 1010 / 1010 Output Total 800 / 800 Balance 1650 / 1700 210 / 210 General: Alert, No apparent distress HEENT: Atraumatic, Normocephalic Oral: Moist Mucosa, No Gingival or Mucosal Lesions/ Ulcerations Neck: No Nodes, Trachea Midline Lungs: Clear to auscultation, Normal air movement, No rhonchi, No wheeze Cardiovascular: Regular rate, Regular Rhythm, Normal S1, Normal S2 Abdomen: Bowel Sounds Present, Soft, Non Tender, Non-Distended, No Hepato-splenomegaly, - - left CVA tenderness Psych/Mental Status: Normal Affect, Appropriate Microbiology Past 72 Hours 05/29/19 14:00 Blood Culture (Wb) - No Site/Description Given Blood Culture - Preliminary Laboratory Results 05/29/19 14:00: WBC 2.2 L, RBC 4.34, Hgb 12.3, Hct 38.4, MCV 88.5, MCH 28.3, MCHC 32.0, RDW Std Deviation 43.5, RDW Coeff of Jarocho 13.4, Plt Count 164, MPV 11.4, Immature Gran % (Auto) 0.400, Neut % (Auto) 80.0 H, Lymph % (Auto) 17.5 L, [place] % (Auto) 0.4, Eos % (Auto) 1.3, Baso % (Auto) 0.4, Absolute Neuts (auto) 1.8 L, Absolute Lymphs (auto) 0.39 L, Nucleated RBC % 0, Differential Comment COMMENT, Diff Path Review July05/29/19 14:00: Sodium 143, Potassium 3.5, Chloride 112 H, Carbon Dioxide 27.0, Anion Gap 4 L, BUN 22 H, Creatinine 0.69, Estim Creat Clear Calc 90.74, Est GFR (MDRD) Af Amer 113, Est GFR (MDRD) Non-Af 93, BUN/Creatinine Ratio 31.9 H, Glucose 105, Calcium 10.3 H, Total Bilirubin 0.60, AST 18, ALT 29, Alkaline Phosphatase 81, Total Protein 7.8, Albumin 4.0, Globulin 3.8, Albumin/Globulin Ratio 1.1 05/29/19 14:00: Lactic Acid 2.4 H* 05/29/19 15:30: Urine Color Yellow, Urine Clarity Sl. Cloudy, Urine pH 6.5, Ur Specific [place] 1.010, Urine Protein 15 H, Urine Glucose (UA) Normal, Urine Ketones Negative, Urine Occult Blood 150 H, Urine Nitrite Positive H, Urine Bilirubin Negative, Urine Urobilinogen Normal, Ur Leukocyte Esterase 100 H, Urine RBC 0-5 SEEN, Urine WBC 5-10 SEEN, Ur Squamous Epith Cells 0 SEEN, Urine Bacteria 1+, Urine Mucus 0 SEEN 05/29/19 18:41: Lactic Acid 1.4 05/30/19 04:40: WBC 13.4 H, RBC 3.48 L, Hgb 9.9 L, Hct 30.2 L, MCV 86.8, MCH 28.4, MCHC 32.8, RDW Std Deviation 42.5, RDW Coeff of Jarocho 13.6, Plt Count 155, MPV 11.5, Immature Gran % (Auto) 0.400, Neut % (Auto) 85.4 H, Lymph % (Auto) 8.6 L, [place] % (Auto) 5.1, Eos % (Auto) 0.4, Baso % (Auto) 0.1, Absolute Neuts (auto) 11.4 H, Absolute Lymphs (auto) 1.15, Nucleated RBC % 0 05/30/19 04:40: Sodium 142, Potassium 3.4 L, Chloride 110 H, Carbon Dioxide 26.0, Anion Gap 6, BUN 18, Creatinine 0.58, Estim Creat Clear Calc 107.95, Est GFR (MDRD) Af Amer 137, Est GFR (MDRD) Non-Af 113, BUN/Creatinine Ratio 30.9 H, Glucose 92, Calcium 8.8 03/07/20 04:40: TSH 1.09 Current Medications Acetaminophen (Tylenol) 650 mg PO Q6H PRN PRN PRN Reason: Pain or Fever Last Admin: 05/30/19 09:48 Dose: 650 mg Documented by: Cholecalciferol (Vitamin D (25mcg)) 4,000 unit PO DAILYCM [facility] Last Admin: 05/30/19 09:50 Dose: Not Given Documented by: Hydrochlorothiazide () 12.5 mg PO DAILY [facility] Last Admin: 05/30/19 09:50 Dose: Not Given Documented by: Sodium Chloride () 250 mls @ 15 mls/hr IV .[id number] PRN PRN Reason: Saline Flush Sodium Chloride () 250 mls @ 15 mls/hr IV .[id number] PRN PRN Reason: Additional IVPB Infusion Ceftriaxone Sodium (Rocephin) 1 gm in 50 mls @ 100 mls/hr IV Q12 [facility] Last Admin: 05/30/19 11:01 Dose: 100 mls/hr Documented by: Sodium Chloride () 1,000 mls @ 75 mls/hr IV .[id number] [facility] Last Admin: 05/30/19 05:05 Dose: 75 mls/hr Documented by: Ketorolac Tromethamine (Toradol (Bkc)) 15 mg IV Q6H PRN PRN PRN Reason: pain 5-6/10 Stop: 06/03/19 20:28 Last Admin: 05/30/19 06:51 Dose: 15 mg Documented by: Levothyroxine Sodium (Synthroid) 100 mcg PO DAILY@0600 [facility] Last Admin: 05/30/19 06:51 Dose: 100 mcg Documented by: Losartan Potassium (Cozaar) 100 mg PO DAILY [facility] Last Admin: 05/30/19 09:50 Dose: Not Given Documented by: Morphine Sulfate () 2 mg IV Q4H PRN PRN PRN Reason: pain 7-10/10 Ondansetron HCl (Zofran) 4 mg IV Q6H PRN PRN PRN Reason: NAUSEA/VOMITING Sodium Chloride () 10 - 40 ml IV UD PRN PRN Reason: SALINE FLUSH Last Admin: 05/30/19 06:51 Dose: 10 ml Documented by: Medical Necessity - Tobacco Use Smoking Status: Former smoker Assessment/Plan All Active Problems Kidney stone on left side (Acute) UTI (urinary tract infection) (Acute) Severe sepsis (Acute) Assessment: 1. Severe sepsis 2. UTI/pyelonephritis 3. bacteremia, gram negative 1/2 sets. likely source. 4. nephrolithiasis, stone passed Plan: 1. change antibiotics to levofloxacin 750 daily for 7 days. Advised patient about tendon rupture. Ok to resume work on 05/31. Advised to avoid heavy lifting and exercise while on antibiotics. 2. Medically stable for discharge. Inpatient E&M: 67838 Subs Hosp L2
[2019-06-02 10:08] LABS: Pathologist Review Reviewed
== END 2019-05-30 12:30 | disposition home or self-care (01) | DRG 872 ==
LOC: ED 17:27 → MS3 17:44 → ICU 20:50
PROVIDERS: Hospitalist; Admitting Provider Urology; Emergency Provider Emergency Medicine; PCP Family Medicine; Visit Provider Urology
DX: A41.9 Sepsis, unspecified organism (principal); N12 Tubulo-interstitial nephritis, not specified as acute or chronic; N13.30 Unspecified hydronephrosis; N20.0 Calculus of kidney; R65.20 Severe sepsis without septic shock; E03.9 Hypothyroidism, unspecified; L40.50 Arthropathic psoriasis, unspecified; E66.9 Obesity, unspecified; I10 Essential (primary) hypertension; Z87.442 Personal history of urinary calculi; Z87.891 Personal history of nicotine dependence; Z80.7 Family history of other malignant neoplasms of lymphoid, hematopoietic and related tissues; Z82.49 Family history of ischemic heart disease and other diseases of the circulatory system; Z82.5 Family history of asthma and other chronic lower respiratory diseases; Z90.710 Acquired absence of both cervix and uterus; Z79.890 Hormone replacement therapy; Z83.3 Family history of diabetes mellitus; Z68.33 Body mass index [BMI] 33.0-33.9, adult
CPT/HCPCS: 36415; 74176; 80048; 80053; 81001; 82360; 83605; 84443; 85025; 87040; 87077; 87086; 87088; 87186; 88300; 99282; J7030; A4216; J2405

== ENCOUNTER → 2019-06-05 16:42 | Outpatient (CLI) | payer OTHER, SELFPAY ==
[2019-05-29 17:58] VITALS: BMI 33.9
--- NOTE | 2019-06-05 16:59 | US_ITS ---
STUDY: RENAL ULTRASOUND - COMPLETE REASON FOR EXAM: Female, 58 years old. HX RENAL STONES HYDRONEPHROSIS TECHNIQUE: Ultrasound evaluation of the kidneys was performed with real-time and static bergeron-scale imaging. COMPARISON: None. FINDINGS: RIGHT KIDNEY: Normal location of the right kidney, which is normal in size. The right kidney measures 13.1 x 7.4 x 4.7 cm. There is a normal cortex of the right kidney. The renal cortex measures 1.6 cm. There is a 2 mm nonobstructive stone. There is no right hydronephrosis. DISTAL RIGHT URETER: There is non-visualization of the distal right ureter. There is no demonstrated right ureterovesical junction calculus. There is a visualized right ureteral jet. LEFT KIDNEY: Normal location of the left kidney, which is normal in size. The left kidney measures 13.5 x 5.7 x 6.5 cm. There is a normal cortex of the left kidney. The renal cortex measures 1.9 cm. There is a 2.6 cm cyst. There are nonobstructive up to 5 mm left renal calculi. There is no left hydronephrosis. DISTAL LEFT URETER: There is non-visualization of the distal left ureter. There is no demonstrated left ureterovesical junction calculus. There is a visualized left ureteral jet. BLADDER: The distended urinary bladder has a volume of 77 ml. There is a normal wall thickness of the distended urinary bladder. There is no demonstrated mass within the urinary bladder. There are no demonstrated bladder calculi. US/Kidney and Bladder IMPRESSION: Nonobstructing stones in the kidneys. Left renal cyst. Electronically Signed: Harris Cowan DO at 23:23 EDT Tel [phone], Service support ,
== END ==
PROVIDERS: PCP Family Medicine; Visit Provider Urology
DX: N13.39 Other hydronephrosis (principal)
CPT/HCPCS: 76770; 87086

== ENCOUNTER → 2019-12-03 14:37 | Outpatient (CLI) | payer OTHER, SELFPAY ==
[2019-05-29 17:58] VITALS: BMI 33.9
--- NOTE | 2019-12-03 14:39 | BI_ITS ---
MAMMOGRAPHY - BILATERAL SCREENING REASON FOR EXAM: Female, 59 years old. Routine annual screening examination. PERTINENT HISTORY: Non-contributory. TECHNIQUE: Digital bilateral breast richard (3D mammographic acquisition) in the CC and MLO projections. 2-D mediolateral oblique (MLO) and craniocaudad (CC) views of both breasts were obtained. CAD: Full Field Digital Mammography with Computer Added Detection was performed. COMPARISON: Comparison is made with prior study dated 05/08/2017 and 06/15/2015. FINDINGS: Breast Composition: There are scattered areas of fibroglandular density. There are no dominant masses or suspicious calcifications. There is a 7 mm x 7 mm well-defined nodule in the inferior medial aspect of the left breast. Correlation with ultrasound is recommended. Stable small benign-appearing bilateral axillary lymph nodes. No other significant abnormalities are identified. BI/SCREEN MAMM (CAD) W/RICHARD BILAT IMPRESSION: 7 mm x 7 mm well-defined nodule in the inferior medial aspect of the left breast. Correlation with ultrasound is recommended. ASSESSMENT CATEGORY: BIRADS Category 0: Incomplete. Need additional imaging evaluation. A letter regarding these results will be sent to the patient by the facility within 30 days. Approximately 10% of breast cancers are not detected by mammography. A normal mammogram should not delay biopsy of a clinically suspicious abnormality. [id number] Electronically Signed: Noel Liz, at 8:13 EDT , Service support ,
== END ==
PROVIDERS: PCP Family Medicine; Referring Provider Family Medicine; Visit Provider Family Medicine
DX: Z12.31 Encounter for screening mammogram for malignant neoplasm of breast (principal)
CPT/HCPCS: 77063; 77067

== ENCOUNTER → 2019-12-10 10:44 | Outpatient (CLI) | payer OTHER, SELFPAY ==
[2019-05-29 17:58] VITALS: BMI 33.9
--- NOTE | 2019-12-10 10:46 | US_ITS ---
STUDY: ULTRASOUND BREAST - LEFT REASON FOR EXAM: Female, 59 years old. Abnormal screening mammogram. TECHNIQUE: Axial and longitudinal images of the LEFT breast were performed with a high resolution ultrasound transducer. # OF IMAGES: [id number] COMPARISON: Comparison is made with prior mammogram dated 12/03/2019. FINDINGS: LEFT Breast: The mammographic abnormality corresponds to a 7 mm x 5 mm x 3 mm slightly irregular hypoechoic nodule at the 7 o''clock position of the breast at 7 cm from the nipple. This is not a typical cyst. Biopsy is recommended. US/Breast Limited Unilateral IMPRESSION: The mammographic abnormality corresponds to a 3 mm x 5 mm x 7 mm hypoechoic slightly irregular nodular density at the 7 o''clock position of the breast at 7 cm from nipple. A biopsy is recommended for further evaluation. ASSESSMENT CATEGORY: BIRADS Category 4: Suspicious - Biopsy Should Be Considered. A letter regarding these results will be sent to the patient by the facility within 30 days. Electronically Signed: Noel Liz, at 12:43 EDT , Service support ,
== END ==
PROVIDERS: PCP Family Medicine; Referring Provider Family Medicine; Visit Provider Family Medicine
DX: R92.2 Inconclusive mammogram (principal)
CPT/HCPCS: 76642

== ENCOUNTER → 2019-12-18 08:15 | Outpatient (CLI) | payer OTHER, SELFPAY ==
[2019-12-18 08:12] VITALS: BMI 33.9
--- NOTE | 2019-12-18 08:15 | BRBX_PTH ---
PATIENT: ARLETH CALLAHAN LOC: [facility] U#:[id number] AGE/SX: 64/F ROOM: RE12/18/[address]: Dr. Santhosh Emmanuel MD : 1960 BED: DIS: SPEC #: [id number] RECD: 12/18/19 10:33 STATUS: JAYASHREE VANESSA #: [id number] CORNELL: 12/18/19 08:[address]: Santhosh Emmanuel DEPT: SURGICAL PATHOLOGY RECD BY: Swati Haley ENTERED: 12/18/19 13:21 SP TYPE: BREAST BX OTHR DR: Dr. Fly Parker MD Tissues: Left breast, NOS Procedures: Surgery Specimen Level IV HEADER OPERATION: Left breast biopsy PRE-OP DIAGNOSIS: Left breast mass TISSUE SUBMITTED: Left breast tissue MICROSCOPIC DIAGNOSIS Left breast, core biopsy: Fibrocystic change. Intraductal hyperplasia without atypia. Minimal chronic inflammation. AM:patricia 12/21/19 MICROSCOPIC DESCRIPTION Slides are reviewed. GROSS DESCRIPTION Received in fixative is one container labeled with the patient name and designated left breast. The specimen consists of multiple elongated fragments of prince-yellow fibroadipose tissue that in aggregate measure 2 x 1 x 0.1 cm. The entire specimen is submitted in one cassette. / SJ:rg 12/18/19 TC:5 CPT: 75298
== END ==
PROVIDERS: PCP Family Medicine; Visit Provider Surgery
DX: N63.20 Unspecified lump in the left breast, unspecified quadrant (principal)
CPT/HCPCS: 88305

== ENCOUNTER → 2020-03-03 10:22 | Outpatient (CLI) | payer OTHER, SELFPAY ==
[2019-12-18 08:12] VITALS: BMI 33.9
[2020-03-03 12:15] LABS: Absolute Lymphocyte Count 1.73 X10^3/uL (0.83-4.51); Absolute Neutrophil Count 3.6 X10^3/uL (2.0-7.7); Basophil# 0.02 X10^3/uL; Basophil% 0.3 % (0-1); Eosinophil# 0.24 X10^3/uL; Eosinophils% 3.9 % (0-5); Hemoglobin 12.5 g/dL (12.0-15.0); Lymphocyte # 1.73 X10^3/ul (4.0); Lymphocyte % 28.5 % (19-41); Mean Corp Hgb Conc 32.9 g/dL (32-36); Mean Corpuscular Hgb 29.3 pg (27.0-32.0); Mean Corpuscular Volume 89.2 fL (81-99); Mean Platelet Vol. 11.9 fl (6.2-12.0); Monocyte# 0.48 X10^3/uL; Monocyte% 7.9 % (0-10); NRBC Flagged by Analyzer 0 % (0-5); Neutrophil % 59.2 % (47-70); Platelet Count 220 K/mm3 (150-450); RBC Distribution Width SD 42.5 fl (35.1-43.9); Red Blood Count 4.26 M/mm3 (4.2-5.4); White Blood Count 6.1 K/mm3 (4.4-11.0)
== END ==
PROVIDERS: PCP Family Medicine; Referring Provider Internal Medicine Rheumatology; Visit Provider Internal Medicine Rheumatology
DX: Z79.899 Other long term (current) drug therapy (principal)
CPT/HCPCS: 36415; 85025

== ENCOUNTER → 2020-03-10 14:20 | Outpatient (CLI) | payer OTHER, SELFPAY ==
[2019-12-18 08:12] VITALS: BMI 33.9
== END ==
LOC: MFPLAB 14:25 → LABSPEC 14:30
PROVIDERS: Internal Medicine Infectious Disease; PCP Family Medicine; Referring Provider Family Medicine; Visit Provider Family Medicine
DX: B34.9 Viral infection, unspecified (principal)
CPT/HCPCS: 87633; 87635; U0002

== ENCOUNTER → 2020-03-11 13:34 | Outpatient (CLI) | payer OTHER, SELFPAY ==
[2019-12-18 08:12] VITALS: BMI 33.9
== END ==
PROVIDERS: PCP Family Medicine; Referring Provider Family Medicine; Visit Provider Family Medicine
DX: R05 Cough (principal)
CPT/HCPCS: 87070; 87077

== ENCOUNTER → 2020-06-03 10:04 | Outpatient (CLI) | payer OTHER, SELFPAY ==
[2019-12-18 08:12] VITALS: BMI 33.9
[2020-06-03 13:36] LABS: Anion Gap 10 (5-15); BUN 15 mg/dL (7-18); BUN/Creat Ratio 25.3 RATIO (10-20); Calcium,Total 10.3 mg/dL (8.5-10.1); Chloride 105 mmol/L (98-107); Creatinine, Serum 0.59 mg/dL (0.55-1.02); EST Glomerular Filtration Rate 110 mL/min (>60); Est Glom Filt Rate - Afr Amer 133 mL/min (>60); Glucose 76 mg/dL (74-106); Potassium 4.2 mmol/L (3.5-5.1); Sodium Level 140 mmol/L (136-145); Thyroid Stim Hormone (TSH) 2.25 uIU/mL (0.358-3.74)
== END ==
PROVIDERS: PCP Family Medicine; Referring Provider Family Medicine; Visit Provider Family Medicine
DX: E03.9 Hypothyroidism, unspecified (principal); I10 Essential (primary) hypertension
CPT/HCPCS: 36415; 80048; 84443

== ENCOUNTER → 2020-06-03 14:13 | Outpatient (CLI) | payer OTHER, SELFPAY ==
[2019-12-18 08:12] VITALS: BMI 33.9
--- NOTE | 2020-06-03 14:15 | BI_ITS ---
MAMMOGRAPHY - UNILATERAL DIAGNOSTIC: LEFT BREAST REASON FOR EXAM: Female, 59 years old. PERTINENT HISTORY: TECHNIQUE: Digital unilateral breast nicolasa (3D mammographic acquisition) in the CC and MLO projections. 2-D mediolateral oblique (MLO) and craniocaudad (CC) views of both breasts were obtained. CAD: Full Field Digital Mammography with Computer Added Detection was performed. COMPARISON: 12/03/2019. FINDINGS: Breast Composition: There are scattered areas of fibroglandular density. There are no dominant masses or suspicious calcifications. There is no recurrent mass at the biopsy site. No other significant abnormalities are identified. BI/DIAG MAMM W/CAD, UNILAT IMPRESSION: Stable unilateral diagnostic mammogram. One year follow-up mammogram recommended. (A) ASSESSMENT CATEGORY: BIRADS Category 2: Benign. A letter regarding these results will be sent to the patient by the facility within 30 days. Approximately 10% of breast cancers are not detected by mammography. A normal mammogram should not delay biopsy of a clinically suspicious abnormality. Electronically Signed: Joan Woodward MD at 15:52 EST Tel , Service support ,
== END ==
PROVIDERS: PCP Family Medicine; Referring Provider Surgery; Visit Provider Surgery
DX: Z98.890 Other specified postprocedural states (principal)
CPT/HCPCS: 77061; 77065; G0279

== ENCOUNTER → 2021-01-16 11:33 | Outpatient (CLI) | payer OTHER, SELFPAY ==
[2021-01-16 15:50] LABS: CRP 9.61 mg/L (0.0-3.0); Creatinine, Serum 0.58 mg/dL (0.55-1.02); EST Glomerular Filtration Rate 112 mL/min (>60); Est Glom Filt Rate - Afr Amer 136 mL/min (>60)
[2021-01-16 16:27] LABS: Erythrocyte Sedimentation Rate 13 mm/hr (0-30)
[2021-01-17 11:53] LABS: T4 Free Direct 1.22 ng/dL (0.76-1.46); Thyroid Stim Hormone (TSH) 1.51 uIU/mL (0.358-3.74)
[2021-01-17 11:53] LABS: Vitamin D,25 Hydroxy 32.6 ng/mL
== END ==
PROVIDERS: PCP Family Medicine; Referring Provider Family Medicine; Visit Provider Internal Medicine Rheumatology
DX: M46.1 Sacroiliitis, not elsewhere classified (principal); Z79.899 Other long term (current) drug therapy; E03.9 Hypothyroidism, unspecified; L40.50 Arthropathic psoriasis, unspecified
CPT/HCPCS: 36415; 82306; 82565; 84439; 84443; 85652; 86140

== ENCOUNTER 2021-06-30 13:12 | Outpatient (CLI) | payer OTHER, SELFPAY ==
--- NOTE | 2021-06-30 13:15 | BI_ITS ---
MAMMOGRAPHY - BILATERAL SCREENING REASON FOR EXAM: Female, 60 years old. Routine annual screening examination. PERTINENT HISTORY: Non-contributory. History of prior left ultrasound-guided breast biopsy. TECHNIQUE: Digital bilateral breast richard (3D mammographic acquisition) in the CC and MLO projections. 2-D mediolateral oblique (MLO) and craniocaudad (CC) views of both breasts were obtained. CAD: Full Field Digital Mammography with Computer Added Detection was performed. COMPARISON: Comparison is made with prior study 12/03/2019 and 05/08/2017. FINDINGS: Breast Composition: There are scattered areas of fibroglandular density. There are no dominant masses or suspicious calcifications. A tissue clip marker is seen within a tiny nodule in the inferior medial aspect of the left breast. This has decreased in size as compared to prior study. Stable benign-appearing bilateral axillary lymph nodes. No other significant abnormalities are identified. BI/SCRN MAMM (CAD)W/RICHARD BILAT IMPRESSION: Stable bilateral screening mammogram. Yearly follow-up mammogram recommended. (A) ASSESSMENT CATEGORY: BIRADS Category 2: Benign. A letter regarding these results will be sent to the patient by the facility within 30 days. Approximately 10% of breast cancers are not detected by mammography. A normal mammogram should not delay biopsy of a clinically suspicious abnormality. [id number] Electronically Signed: Noel Liz MD at 14:40 EDT ,
== END 2021-06-30 23:59 | disposition home or self-care (01) ==
LOC: OPBI 13:14
PROVIDERS: PCP Family Medicine; Visit Provider Family Medicine
DX: Z12.31 Encounter for screening mammogram for malignant neoplasm of breast (principal)
CPT/HCPCS: 77063; 77067

== ENCOUNTER → 2021-08-04 | Outpatient (CLI) | payer OTHER, SELFPAY ==
[2021-08-04 11:44] LABS: AST(SGOT) 15 U/L (15-37); Alanine Aminotransfer ALT/SGPT 24 U/L (13-56)
== END | disposition home or self-care (01) ==
LOC: LAB 11:04
PROVIDERS: PCP Family Medicine; Visit Provider Podiatrist
DX: B35.1 Tinea unguium (principal)
CPT/HCPCS: 36415; 84450; 84460

== ENCOUNTER → 2021-12-21 | Outpatient (CLI) | payer OTHER, SELFPAY ==
[2021-12-21 16:43] LABS: Mucous, Urine 0 SEEN /hpf (<or=2+); Red Blood Cells-Urine 0 SEEN /hpf (0-5); Squamous Epithelial Cells - UA 0 SEEN /hpf (5-10)
[2021-12-21 17:02] LABS: Bacteria 1+ /hpf (None Seen); White Blood Cells 0-5 SEEN /hpf (0-5)
[2021-12-21 17:03] LABS: Color, Urine Yellow (Yellow); Glucose, Dipstick Normal (Normal); Ketone-Dipstick Negative (Negative); Specific Gravity, Urine 1.015 (1.002-1.030); Urine Bilirubin Dipstick Negative (Negative); Urine Clarity Clear (Clear)
[2021-12-21 17:04] LABS: Leukocyte Esterase-Dipstick 100 /ul (Negative); Nitrite-Dipstick Negative (Negative); Occult Blood-Urine 50 /ul (Negative); Protein-Dipstick Negative (Negative); Urine Urobilinogen Normal (Normal)
== END | disposition home or self-care (01) ==
LOC: MFPLAB 16:40
PROVIDERS: PCP Family Medicine; Referring Provider Family Medicine; Visit Provider Family Medicine
DX: R30.0 Dysuria (principal)
CPT/HCPCS: 81001; 87077; 87086; 87088; 87186

== ENCOUNTER → 2022-01-01 | Outpatient (CLI) | payer OTHER, SELFPAY ==
[2022-01-01 13:29] LABS: Color, Urine Yellow (Yellow); Glucose, Dipstick Normal (Normal); Ketone-Dipstick Negative (Negative); Leukocyte Esterase-Dipstick 500 /ul (Negative); Nitrite-Dipstick Negative (Negative); Occult Blood-Urine 250 /ul (Negative); Protein-Dipstick 30 mg/dl (Negative); Urine Bilirubin Dipstick Negative (Negative); Urine Clarity Sl. Cloudy (Clear); Urine Urobilinogen Normal (Normal)
== END | disposition home or self-care (01) ==
PROVIDERS: PCP Family Medicine; Visit Provider Family Medicine
DX: R39.9 Unspecified symptoms and signs involving the genitourinary system (principal)
CPT/HCPCS: 81002; 87086; 87186

== ENCOUNTER 2022-01-16 20:05 | Emergency (ER) | payer OTHER, SELFPAY ==
[2022-01-16 20:06] VITALS: BP 162/82; PULSE 73; RESP 15; TEMP 36.1; O2SAT 96; BMI 32.3
[2022-01-16 21:22] LABS: Absolute Lymphocyte Count 0.82 X10^3/uL (0.83-4.51); Absolute Neutrophil Count 8.8 X10^3/uL (2.0-7.7); Basophil# 0.02 X10^3/uL; Basophil% 0.2 % (0-1); Eosinophil# 0.01 X10^3/uL; Eosinophils% 0.1 % (0-5); Hematocrit 36.8 % (37-47); Hemoglobin 12.1 g/dL (12.0-15.0); Lymphocyte # 0.82 X10^3/ul (0.83-4.51); Lymphocyte % 8.3 % (19-41); Mean Corp Hgb Conc 32.9 g/dL (32-36); Mean Corpuscular Hgb 28.4 pg (27.0-32.0); Mean Corpuscular Volume 86.4 fL (81-99); Mean Platelet Vol. 11.4 fl (6.2-12.0); Monocyte# 0.22 X10^3/uL; Monocyte% 2.2 % (0-10); NRBC Flagged by Analyzer 0 % (0-5); Neutrophil # 8.81 X10^3/uL (2.7-7.7); Neutrophil % 88.8 % (47-70); Platelet Count 231 K/mm3 (150-450); RBC Distribution Width CV 13.2 % (11.6-14.6); RBC Distribution Width SD 41.6 fl (35.1-43.9); Red Blood Count 4.26 M/mm3 (4.2-5.4); White Blood Count 9.9 K/mm3 (4.4-11.0)
--- NOTE | 2022-01-16 21:27 | CT_ITS ---
EXAM: CT ABDOMEN AND PELVIS WITHOUT INTRAVENOUS CONTRAST CLINICAL INDICATION: left flank pain TECHNIQUE: Helically acquired images were obtained of the abdomen and pelvis without intravenous contrast. This CT exam was performed using one or more of the following dose reduction techniques: automated exposure control, adjustment of the mA and/or kV according to patient size, and/or use of iterative reconstruction technique. This report was created using [employer] report generation technology. RADIATION DOSE: Total DLP: 930.43 mGy-cm. COMPARISON: Previous CT of 05/29/2019. FINDINGS: LOWER THORAX: Minimal dependent atelectasis of the lung bases. 5.5 cm diameter hiatal hernia. No coronary artery calcification or significant pericardial effusion identified. Hiatal hernia. ABDOMEN: LIVER: Unremarkable. Homogeneous. GALLBLADDER AND BILE DUCTS: Unremarkable. No calcified gallstones. No gallbladder distention or wall edema. No intra- or extrahepatic biliary ductal dilation. PANCREAS: Unremarkable. No focal cystic mass. SPLEEN: Unremarkable. Normal size without focal cystic or solid mass. ADRENALS: Unremarkable. No nodules. KIDNEYS AND URETERS: The left kidney is asymmetrically enlarged and edematous with moderately severe pelvocaliectasis and severe hydroureter. Within the distal left ureter just proximal to the UVJ is a 7 mm lobulated stone. Minimal associated periureteral stranding is seen about the distal aspect of the ureter. Stable simple cyst within the left renal lower pole cortex, which requires no follow-up. A punctate nonobstructing stone is noted within the left renal lower pole collecting system. Additional punctate parenchymal calcifications are seen within the left kidney. A solitary 4 mm nonobstructing stone is seen within the interpolar collecting system of the right kidney. No right-sided hydronephrosis or hydroureter. STOMACH AND BOWEL: Unremarkable. No stomach or bowel distention. No focal inflammatory change. PELVIS: APPENDIX: No evidence of acute appendicitis. BLADDER: Partially distended urinary bladder is unremarkable. REPRODUCTIVE: Uterus is not visualized. No adnexal mass is identified. ABDOMEN and PELVIS: INTRAPERITONEAL SPACE: Unremarkable. No ascites or other fluid collection. No free air. BONES/JOINTS: Stable bone island within the left sacral ala. Stable findings of prior trauma and surgery involving the proximal right femur. No acute osseous abnormality. No suspicious lytic or blastic abnormality. SOFT TISSUES: Previous left inguinal surgery with surgical mesh remaining in place. No discrete abdominal or pelvic wall hernia. VASCULATURE: Mildly calcific abdominal aorta. Abdominal aorta is non-dilated. LYMPH NODES: Unremarkable. No enlarged lymph nodes. CT/Abdomen/Pelvis without Cont IMPRESSION: Moderately severe left hydronephrosis due to a 7 mm lobulated stone which lies within the distal ureter just proximal to the UVJ. Nonobstructing renal calculi bilaterally. Hiatal hernia again noted. Electronically Signed: Janak Shoemaker MD at 23:40 EDT ,
[2022-01-16 21:35] LABS: Anion Gap 6 (5-15); BUN 16 mg/dL (7-18); BUN/Creat Ratio 22.3 RATIO (10-20); Calcium,Total 10.5 mg/dL (8.5-10.1); Chloride 104 mmol/L (98-107); Creatinine, Serum 0.72 mg/dL (0.55-1.02); EST Glomerular Filtration Rate 88 mL/min (>60); Est Glom Filt Rate - Afr Amer 107 mL/min (>60); Estimated Creatinine Clearance 83.82 ml/min; Glucose 144 mg/dL (74-106); Potassium 3.8 mmol/L (3.5-5.1); Sodium Level 135 mmol/L (136-145)
[2022-01-16] MEDS: Ondansetron 4 MG/2 ML Vial IV (21:45)
[2022-01-16] MEDS: Ketorolac 15 MG/ML Vial IV (21:46)
[2022-01-16 22:12] VITALS: BP 138/79; PULSE 82; RESP 15; O2SAT 97
[2022-01-16] MEDS: Morphine 4 MG/ML Syringe IV (22:22)
[2022-01-16 23:10] VITALS: BP 138/77; PULSE 86; RESP 15; O2SAT 98
--- NOTE | 2022-01-17 00:36 | EX.ED.DYSGE1 ---
HPI History of Present Illness Chief Complaint: Flank Pain Informant: patient Narrative Narrative: Patient presents with left flank pain rating to the left lower quadrant. She states it really started with left lower quadrant pain that then radiated back up. But she now feels that this feels like a kidney stone. She has had these several times before. She has never required lithotripsy or stenting although she was scheduled for stent once but passed it. She said she was treated for UTI recently. She is actually still on antibiotics now. But she is not having dysuria frequency or urgency. She has no fevers or chills. She is eating and drinking fine. She did get nausea and vomit with the pain but she is not nauseated now. No change in bowel habits. [facility] Medical History HTN (hypertension) Hypothyroidism Kidney stone on left side Screen for colon cancer Sepsis Severe sepsis UTI (urinary tract infection) Home Medications cholecalciferol (vitamin D3) 50 mcg (2,000 unit) chewable tablet 4,000 unit PO DAILY 05/29/19 [History Last Taken 05/28/19] levothyroxine 75 mcg tablet 100 mcg PO DAILY 05/29/19 [History Last Taken 05/28/19] losartan 100 mg-hydrochlorothiazide 12.5 mg tablet 1 ea PO DAILY 05/29/19 [History Last Taken 05/28/19] levofloxacin 750 mg tablet 750 mg PO DAILY #7 tabs 05/30/19 [Rx Last Taken Unknown] ondansetron 4 mg disintegrating tablet 4 mg PO Q8H PRN nausea and vomiting #10 tabs 01/17/22 [Rx Last Taken Unknown] oxycodone-acetaminophen 5 mg-325 mg tablet (Percocet) 1 tab PO Q6H PRN pain 3 days #12 tabs 01/17/22 [Rx Last Taken Unknown] tamsulosin 0.4 mg capsule (Flomax) 0.4 mg PO DAILY #7 caps 01/17/22 [Rx Last Taken Unknown] Allergy/AdvReac Type Severity Reaction Status Date / Time nitrous oxide AdvReac Unknown Verified 01/16/22 20:06 Family History Mother Heart disease CAD (coronary artery disease) Thyroid disorder Father Diabetes Heart disease Hypertension Kidney disease Cancer MM Surgical History S/P hernia repair S/P hysterectomy S/P tubal ligation Status post right hip replacement Social History Smoking Status: Former smoker alcohol intake: current alcohol intake frequency: a few times a month ROS ROS ED Constitutional Constitutional ED: Denies chills, fever(s), subjective or sweats ENT ENT ED: Denies rhinorrhea or sore throat Cardiovascular Cardiovascular: Denies chest pain or palpitations Respiratory/Chest Respiratory/Chest: Denies cough Gastrointestinal Gastrointestinal: Reports abdominal pain, nausea and vomiting; Denies constipation, diarrhea or melena Genitourinary Genitourinary ED: Denies dysuria, hematuria or urinary frequency Musculoskeletal Musculoskeletal: Reports back pain Integumentary Denies rash Neurologic Neurologic: Denies paresthesias or weakness Hematologic/Lymphatic Hematologic/Lymphatic: Denies easy bleeding or easy bruising Allergic/Immunologic Allergic/Immunologic ED: Denies urticaria EXAM Physical Exam Const Vital Signs: 01/16/22 20:06 01/16/22 21:17 01/16/22 22:12 Temperature 96.9 F L Temperature Source Temporal Pulse Rate 73 82 Respiratory Rate 15 15 Respiratory Effort Normal Non-Labored Respiratory Pattern Normal Blood Pressure 162/82 H 138/79 H Blood Pressure Mean 108 98 Pulse Ox 96 97 Oxygen Delivery Method Room Air Room Air 01/16/22 23:10 Temperature Temperature Source Pulse Rate 86 Respiratory Rate 15 Respiratory Effort Respiratory Pattern Blood Pressure 138/77 H Blood Pressure Mean 97 Pulse Ox 98 Oxygen Delivery Method Room Air Positive well nourished and well developed Constitutional Narrative: Patient looks surprisingly comfortable. She states that Toradol usually works very well for her pain and she would like to start with that General Appearance ED: well developed and NAD HEENT Reports moist mucous membranes Eyes General Eye ED: Negative for scleral icterus Neck no lymphadenopathy Resp normal respiratory effort and clear to auscultation bilaterally Cardio regular rate and regular rhythm GI normal to inspection, nondistended, normoactive bowel sounds, non-tender and no masses GI Narrative: Abdomen really shows no tenderness. Even at the left lower quadrant where she has pain she is not actually tender. Back/Spine Back/Spine Narrative: Very mild left CVA tenderness. None on the right. No skin changes. Extremity normal to inspection General Extremety ED: Negative for edema General Extremity: Negative for edema Neuro Sensorium / Orientation: alert Psych mental status grossly normal Skin no rashes or lesions noted MDM MDM MDM Narrative Medical decision making narrative: Patient was given Toradol and Zofran. Nausea was better. The pain was down but still present. We gave her morphine. It came down to a 1 or 2. She states it is currently at about a 3. The pain is just starting to come back but overall is very well controlled. She looks comfortable. Blood work showed normal white count hemoglobin and platelets. Electrolytes showed minimal low sodium and minimal elevation in glucose. CT scan showed significant left-sided hydronephrosis and 7 mm distal stone. I explained to the patient that this will likely not pass on its own. It is possible but statistically this is more likely to need procedure. However, the patient is comfortable. She is afebrile. She has normal white count. Her nausea is gone. Her pain is actually been surprisingly easy to control. I will get her another dose of pain meds before she leaves as the pain is just beginning to come back. I will write for pain meds along with Zofran and Flomax. She has seen/been referred to Dr. Glasgow in the past. I recommend she call in the morning to notify as they may work to get her in for stenting/lithotripsy/laser treatment this week. We discussed reasons to return. There is not a urologist on-call at this time to contact to start arrangements. Lab Data Attestation: I reviewed the patient's lab results. Labs: Laboratory Results - last 24 hr 01/16/22 01/16/22 21:14 21:14 WBC 9.9 RBC 4.26 Hgb 12.1 Hct 36.8 L MCV 86.4 MCH 28.4 MCHC 32.9 RDW Std Deviation 41.6 RDW Coeff of Jarocho 13.2 Plt Count 231 MPV 11.4 Immature Gran % (Auto) 0.400 Neut % (Auto) 88.8 H Lymph % (Auto) 8.3 L Weakley % (Auto) 2.2 Eos % (Auto) 0.1 Baso % (Auto) 0.2 Absolute Neuts (auto) 8.8 H Absolute Lymphs (auto) 0.82 L Nucleated RBC % 0 Sodium 135 L Potassium 3.8 Chloride 104 Carbon Dioxide 25.0 Anion Gap 6 BUN 16 Creatinine 0.72 Estim Creat Clear Calc 83.82 Est GFR (MDRD) Af Amer 107 Est GFR (MDRD) Non-Af 88 BUN/Creatinine Ratio 22.3 H Glucose 144 H Calcium 10.5 H Radiography Diagnostic Testing: Clinical Impression(s) from Imaging Studies Abdomen/Pelvis CT 01/16/22 21:27 IMPRESSION: Moderately severe left hydronephrosis due to a 7 mm lobulated stone which lies within the distal ureter just proximal to the UVJ. Nonobstructing renal calculi bilaterally. Hiatal hernia again noted. Electronically Signed: Janak Shoemaker MD at 23:40 EDT , CT scan looked at by me and read by radiology does show a 7 mm distal ureteral stone with hydronephrosis Discharge Plan Triage Chief Complaint: Flank Pain ED Provider: Gregorio Gibson Dx/Rx/DC Orders Clinical Impression: Kidney stone on left side Instructions: ED Kidney Stone w/ Colic Prescriptions: New oxycodone-acetaminophen [Percocet] 5-325 mg tablet 1 tab PO Q6H PRN (Reason: pain) 3 Days Qty: 12 0RF ondansetron 4 mg tablet,disintegrating 4 mg PO Q8H PRN (Reason: nausea and vomiting) Qty: 10 0RF tamsulosin [Flomax] 0.4 mg capsule 0.4 mg PO DAILY Qty: 7 0RF No Action losartan-hydrochlorothiazide 1 EACH tablet 1 ea PO DAILY levothyroxine 75 MCG tablet 100 mcg PO DAILY cholecalciferol (vitamin D3) 2,000 UNIT tablet,chewable 4,000 unit PO DAILY levofloxacin 750 MG tablet 750 mg PO DAILY Qty: 7 0RF Primary Care Provider: Fly Parker Referrals: Fly Parker MD [Primary Care Provider] - Effie Glasgow MD [Med Staff - Active Staff] - As soon as possible (Call in the morning to notify them and for an appointment as soon as possible.) Disposition Disposition: Home, Self Care
[2022-01-17 01:38] VITALS: BP 152/86; PULSE 81; RESP 16; O2SAT 98
== END 2022-01-17 02:07 | disposition home or self-care (01) ==
PROVIDERS: Emergency Provider Emergency Medicine; PCP Family Medicine; Visit Provider Emergency Medicine
DX: N13.2 Hydronephrosis with renal and ureteral calculous obstruction (principal); Z87.891 Personal history of nicotine dependence; I10 Essential (primary) hypertension; E03.9 Hypothyroidism, unspecified; Z87.442 Personal history of urinary calculi
CPT/HCPCS: 74176; 80048; 85025; 96374; 96375; 99284; J2405

== ENCOUNTER 2022-01-18 09:15 | Day surgery (SDC) | payer OTHER, SELFPAY ==
--- NOTE | 2022-01-18 09:35 | HP.PCM_ITS ---
HPI - General HPI Narrative ARLETH CALLAHAN, is a 61 F who presents for surgical intervention for a distal left ureteral calculus with hydronephrosis found on CT scan done for evaluation of pain in the emergency room this week. Informed consent has been obtained. [facility] Medical History (Updated 01/18/22 @ 09:[address] Effie Glasgow MD) Former smoker Heartburn History of echocardiogram History of hiatal hernia History of stress test HTN (hypertension) Hydronephrosis Hypothyroidism Kidney stone on left side Left ureteral calculus Leg cramps Sciatic leg pain Screen for colon cancer Sepsis Severe sepsis UTI (urinary tract infection) Wears glasses Home Medications cholecalciferol (vitamin D3) 50 mcg (2,000 unit) chewable tablet 1,000 unit PO DAILY 05/29/19 [History Last Taken 05/28/19] levothyroxine 75 mcg tablet 100 mcg PO DAILY 05/29/19 [History Last Taken 01/18/22] losartan 100 mg-hydrochlorothiazide 12.5 mg tablet 1 ea PO DAILY 05/29/19 [History Last Taken 05/28/19] meloxicam 15 mg tablet 15 mg PO DAILY PRN PRN Pain 01/17/22 [History Last Taken Unknown] ondansetron 4 mg disintegrating tablet 4 mg PO Q8H PRN nausea and vomiting #10 tabs 01/17/22 [Rx Last Taken Unknown] oxycodone-acetaminophen 5 mg-325 mg tablet (Percocet) 1 tab PO Q6H PRN pain 3 days #12 tabs 01/17/22 [Rx Last Taken Unknown] tamsulosin 0.4 mg capsule (Flomax) 0.4 mg PO DAILY #7 caps 01/17/22 [Rx Last Taken Unknown] Family History Mother Heart disease CAD (coronary artery disease) Thyroid disorder Father Diabetes Heart disease Hypertension Kidney disease Cancer MM Surgical History History of hip surgery S/P hernia repair S/P hysterectomy S/P tubal ligation Social History Smoking Status: Former smoker alcohol intake: current alcohol intake frequency: a few times a month ROS Constitutional Constitutional: Denies chills, fatigue or fever(s) Eyes Eyes: Reports systems reviewed and no addt'l complaints, except as documented ENT HEENT: Reports systems reviewed and no addt'l complaints, except as documented Cardiovascular Cardiovascular: Reports nausea; Denies chest pain, dyspnea or edema Respiratory/Chest Respiratory/Chest: Denies cough or dyspnea Gastrointestinal Gastrointestinal: Reports abdominal pain and heartburn Genitourinary Genitourinary: Reports abdominal discomfort, low back pain and urinary urgency Musculoskeletal Musculoskeletal: Reports systems reviewed and no addt'l complaints, except as documented Integumentary Integumentary: Reports systems reviewed and no addt'l complaints, except as documented Neurologic Neurologic: Reports systems reviewed and no addt'l complaints, except as documented Psychiatric Psychiatric: Reports systems reviewed and no addt'l complaints, except as documented Endocrine Endocrinology: Reports systems reviewed and no addt'l complaints, except as documented Hematologic/Lymphatic Hematologic/Lymphatic: Reports systems reviewed and no addt'l complaints, except as documented Allergic/Immunologic Allergic/Immunologic: Reports systems reviewed and no addt'l complaints, except as documented Physical Exam Const alert, oriented x3 and no apparent distress General Appearance: cooperative HEENT normocephalic, head/scalp atraumatic, hearing grossly normal bilaterally, exter nal ears normal and external nose normal Eyes conjunctivae normal General Eye: normal appearance of both eyes Neck supple General: normal visual inspection and trachea midline Lymph Lymphatic: no lymphedema noted Chest inspection of chest normal Resp normal respiratory effort, normal air movement, no retractions and no use of accessory muscles Cardio regular rate and regular rhythm GI soft to palpation, non-tender and non-distended Back/Spine General Back: CVA tenderness left Extremity normal to inspection Skin no rashes or lesions noted Neuro oriented x3, CN's II-XII intact bilaterally and moves all extremities Psych mental status grossly normal Assessment & Plan Assessment/Plan (1) Left ureteral calculus: (2) Hydronephrosis: PLAN: Plan Proceed with cystoscopy, left ureteroscopy holmium laser lithotripsy and left ureteral stent insertion
--- NOTE | 2022-01-18 09:40 | PCM.OPRPT ---
Problems Associated Problem List Diagnoses (1) Left ureteral calculus: Report of Operation Date of Procedure: 01/18/22 Pre-Operative Diagnosis: Left ureteral calculus, hydronephrosis Post-Operative Diagnosis: Same Surgery/Procedure Performed:: Cystoscopy, left ureteroscopy holmium laser lithotripsy, stone basket extraction, left ureteral stent insertion Surgeon: Effie Glasgow Type of Anesthesia: General Specimen's removed: stone fragments Description of Procedure: The patient is a 61-year-old female diagnosed with a left distal ureteral calculus with obstruction and now presents for definitive intervention. She has been on 3 rounds of antibiotics and informed consent has been obtained. She was taken to the operating room and placed on the operating room table. Anesthesia monitored the head, neck, airway, IV access and vital signs throughout the case. Once anesthesia was appropriate ministered, the patient was placed into dorsolithotomy position was prepped and draped in usual sterile fashion. Cystoscope was inserted through the urethra under direct visualization into the urinary bladder. The bladder mucosa was visualized in its entirety and found to be without evidence of mass, erythema or foreign body. The left ureteral orifice was identified and intubated with a 0.035 Glidewire. The semirigid ureteroscope was then utilized to gain access to the distal ureteral calculus which was fragmented into multiple small pieces using the holmium laser fiber. A stone basket was utilized for removal of the fragments. Once the fragments were removed, the cystoscope was used and a 6 Kiswahili 26 cm JJ stent was placed over the Glidewire with good positioning in the renal pelvis. The distal aspect of the stent was inadvertently inserted into the ureteral orifice. The basket was utilized to grasp the end of the stent and pull it into correct anatomic position. The patient's bladder was emptied and the case was terminated. She was awakened and taken to the recovery room in good condition. There were no complications during this procedure. Grafts/Implants Used: 6x26 JJ stent Complications None Admit VTE Documentation VTE Present on Admission: Yes VTE Mechan Device Prophylaxis: SCD's VTE Pharm Prophylaxis ordered?: No Reason prophylaxis not ordered:: Treatment Not Indicated
--- NOTE | 2022-01-18 09:41 | DCINST_ITS ---
Discharge Instructions Diet Discharge Diet: No restrictions Activity Discharge Activity: Return to Normal Activity and May Not Drive (While on narcotics) May resume sexual activity in: No Restrictions Dressing / Incision Call your doctor if you observe: Fever of 101 or Higher, Inability to urinate and Inability to have a bowel movement Follow Up Care Please Follow Up With: Effie Glasgow MD When: Call office for appointment Test Results: Test results from this visit will be discussed in further detail at your follow- up appointment, if applicable. Discharge Plan Admission Attending Provider: Effie Glasgow Primary Care Provider: Fly Parker Discharge Orders/Prescriptions Prescriptions: New oxycodone-acetaminophen [Percocet] 5-325 mg tablet 1 tab PO Q8H PRN (Reason: pain) 3 Days Qty: 14 0RF Continued losartan-hydrochlorothiazide 1 EACH tablet 1 ea PO DAILY levothyroxine 75 MCG tablet 100 mcg PO DAILY cholecalciferol (vitamin D3) 2,000 UNIT tablet,chewable 1,000 unit PO DAILY oxycodone-acetaminophen [Percocet] 5-325 mg tablet 1 tab PO Q6H PRN (Reason: pain) 3 Days Qty: 12 0RF ondansetron 4 mg tablet,disintegrating 4 mg PO Q8H PRN (Reason: nausea and vomiting) Qty: 10 0RF tamsulosin [Flomax] 0.4 mg capsule 0.4 mg PO DAILY Qty: 7 0RF meloxicam 15 mg tablet 15 mg PO DAILY PRN PRN (Reason: Pain) Label Comments: TAKE 1 TABLET BY MOUTH ONCE DAILY WITH FOOD NEEDED Referrals / Follow Up: Fly Parker MD [Primary Care Provider] - Disposition Disposition (needs filled in before D/C Order can be placed): Home, Self Care
[2022-01-18 10:09] VITALS: BP 124/84; PULSE 69; RESP 12; TEMP 37.1; O2SAT 98; BMI 32.8
[2022-01-18] MEDS: Lactated Ringers 1,000 ML 15 ML IV (10:18)
--- NOTE | 2022-01-18 11:05 | CALC_PTH ---
PATIENT: ARLETH CALLAHAN [place] [facility] [id number] AGE/SX: 61/F ROOM: RE01/18/[address]: Dr. Effie Glasgow MD : 1960 BED: DIS: 01/18/2022 SPEC #: [id number] RECD: 01/18/22 12:54 STATUS: JAYASHREE MENDEZ #: [id number] CORNELL: 01/18/22 11:[address]: Effie Glasgow DEPT: SURGICAL PATHOLOGY RECD BY: Miranda Marie ENTERED: 01/18/22 13:22 SP TYPE: Calculi OTHR DR: Dr. Fly Parker MD Tissues: CALCULI Procedures: Surgery Specimen Level I HEADER OPERATION: Ureteroscopy, laser lithotripsy, insertion stent, stone basket PRE-OP DIAGNOSIS: Left ureteral calculus, hydronephrosis TISSUE SUBMITTED: Left ureteral calculus GROSS DIAGNOSIS Left ureteral calculus, removal: Fragments of unremarkable calculi (gross diagnosis only). AM:patricia 01/19/2022 COMMENT The calculus is submitted in its entirety for chemical stone analysis. The results from this study will be reported separately. GROSS DESCRIPTION Received without fixative labeled with the patient's name and designated left ureteral calculus. The specimen consists of multiple irregular fragments of dark prince calculi measuring in aggregate 0.7 x 0.5 x 0.2 cm. The entire specimen is submitted for stone analysis. / AM:patricia 01/18/2022 CPT: 82076
[2022-01-18] MEDS: Cefazolin 2 GM in 0.9% Normal Saline 100 ML IV (11:30)
[2022-01-18 12:47] VITALS: BP 124/84; BP 150/90; PULSE 98; RESP 16; TEMP 36.7; O2SAT 99
[2022-01-18 13:00] VITALS: BP 124/84; BP 135/68; PULSE 69; RESP 18; O2SAT 100
[2022-01-18 13:25] VITALS: BP 124/84; BP 99/75; PULSE 70; RESP 18; TEMP 36.7; O2SAT 95
[2022-01-18 14:15] VITALS: BP 124/84; BP 141/84; PULSE 85; RESP 16; TEMP 36.8; O2SAT 97
== END 2022-01-18 14:17 | disposition home or self-care (01) ==
LOC: SDC 09:17 → AC 09:18
PROVIDERS: PCP Family Medicine; Referring Provider Urology; Visit Provider Urology
PROC: 0TJ98ZZ Inspection of Ureter, Via Natural or Artificial Opening Endoscopic (ICD-10-PCS; CPT 52352; principal; 2022-01-18 10:55)
DX: N13.2 Hydronephrosis with renal and ureteral calculous obstruction (principal); I10 Essential (primary) hypertension; Z87.891 Personal history of nicotine dependence; E03.9 Hypothyroidism, unspecified; Z87.442 Personal history of urinary calculi
CPT/HCPCS: 52356; 00918; 76000; 82360; 88300; J7120; C2617; J2405

== ENCOUNTER 2022-06-14 14:49 | Observation (INO) | payer OTHER, SELFPAY ==
[2022-06-14] VITALS (9 sets, daily range): BP systolic 110–168; BP diastolic 75–91; PULSE 74–160; RESP 14–18; TEMP 36.3–36.6; O2SAT 96–99; BMI 32.2; BMI 32.7
--- NOTE | 2022-06-14 15:11 | EKG12_ITS ---
Test Reason : PALP Blood Pressure : / mmHG Vent. Rate : 156 BPM Atrial Rate : 000 BPM P-R Int : 000 ms QRS Dur : 110 ms QT Int : 304 ms P-R-T Axes : 000 008 019 degrees QTc Int : 489 ms Supraventricular tachycardia Minimal voltage criteria for LVH, may be normal variant ( [place] product ) Nonspecific ST abnormality Abnormal ECG Confirmed by NADIR CALIX, DAVID ([id number]), development editor SKYLA JEFFERY ([id number]) on 06/15/2022 10:50:45 AM Referred By: ABE Confirmed By:DAVID SCHMITZ MD
[2022-06-14] MEDS: Adenosine 6 MG/2 ML Syringe IV (15:17)
[2022-06-14] MEDS: Adenosine 6 MG/2 ML Syringe 12 MG IV (15:20)
--- NOTE | 2022-06-14 15:26 | RAD_ITS ---
STUDY: X-RAY CHEST REASON FOR EXAM: Female, 61 years old. Chest pain. Tachycardia. TECHNIQUE: Single AP portable view of the chest. COMPARISON: Comparison is made with prior study dated September 28, 2015. FINDINGS: EKG electrodes are seen. The lungs are clear and expanded. There is no demonstrated pleural abnormality. Normal size heart. Normal mediastinum and марина. Normal visualized pulmonary arteries. There is atherosclerotic tortuosity of the aortic arch and descending thoracic aorta. There are diffuse degenerative changes of the visualized thoracic spine. Normal visualized ribs, clavicles, and shoulders. There is no demonstrated abnormality of the visualized soft tissue structures of the upper abdomen. RAD/Chest 1 View (Portable) IMPRESSION: No acute abnormality is seen. Electronically Signed: Noel Liz MD at 15:43 EDT ,
[2022-06-14 15:32] LABS: Absolute Neutrophil Count 5.2 X10^3/uL (2.0-7.7); Basophil# 0.03 X10^3/uL; Basophil% 0.4 % (0-1); Eosinophil# 0.09 X10^3/uL; Eosinophils% 1.1 % (0-5); Hematocrit 40.3 % (37-47); Hemoglobin 13.3 g/dL (12.0-15.0); Lymphocyte % 28.8 % (19-41); Mean Corpuscular Hgb 28.7 pg (27.0-32.0); Mean Corpuscular Volume 86.9 fL (81-99); Mean Platelet Vol. 11.6 fl (6.2-12.0); Monocyte# 0.58 X10^3/uL; NRBC Flagged by Analyzer 0 % (0-5); Neutrophil % 62.5 % (47-70); Platelet Count 291 K/mm3 (150-450); RBC Distribution Width CV 13.4 % (11.6-14.6); RBC Distribution Width SD 42.2 fl (35.1-43.9); Red Blood Count 4.64 M/mm3 (4.2-5.4); White Blood Count 8.3 K/mm3 (4.4-11.0)
--- NOTE | 2022-06-14 15:35 | EX.ED.DYSGE1 ---
HPI History of Present Illness Chief Complaint: Palpitations Narrative Narrative: 61-year-old female presenting with palpitations and fast heart rate. Patient states that start about 130 this afternoon. Patient reports some family stress and she is initially thought this is why her heart rate is fast. She states she has a history of heart rates running in the 130s. No specific history of tachycardia such as SVT, A-fib. She does not have any chest pain. She is a little bit of dyspnea with a heart rate running fast. Denies nausea or vomiting. [facility] Medical History Former smoker Heartburn History of echocardiogram History of hiatal hernia History of stress test HTN (hypertension) Hydronephrosis Hypothyroidism Kidney stone on left side Left ureteral calculus Leg cramps Sciatic leg pain Screen for colon cancer Sepsis Severe sepsis UTI (urinary tract infection) Wears glasses Home Medications cholecalciferol (vitamin D3) 50 mcg (2,000 unit) chewable tablet 1,000 unit PO DAILY 05/29/19 [History Last Taken 05/28/19] levothyroxine 75 mcg tablet 100 mcg PO DAILY 05/29/19 [History Last Taken 01/18/22] losartan 100 mg-hydrochlorothiazide 12.5 mg tablet 1 ea PO DAILY 05/29/19 [History Last Taken 05/28/19] meloxicam 15 mg tablet 15 mg PO DAILY PRN PRN Pain 01/17/22 [History Last Taken Unknown] ondansetron 4 mg disintegrating tablet 4 mg PO Q8H PRN nausea and vomiting #10 tabs 01/17/22 [Rx Last Taken Unknown] oxycodone-acetaminophen 5 mg-325 mg tablet (Percocet) 1 tab PO Q6H PRN pain 3 days #12 tabs 01/17/22 [Rx Last Taken Unknown] tamsulosin 0.4 mg capsule (Flomax) 0.4 mg PO DAILY #7 caps 01/17/22 [Rx Last Taken Unknown] oxycodone-acetaminophen 5 mg-325 mg tablet (Percocet) 1 tab PO Q8H PRN pain 3 days #14 tabs 01/18/22 [Rx Last Taken Unknown] Allergy/AdvReac Type Severity Reaction Status Date / Time No Known Allergies Allergy Verified 06/14/22 14:51 Family History Mother Heart disease CAD (coronary artery disease) Thyroid disorder Father Diabetes Heart disease Hypertension Kidney disease Cancer MM Surgical History History of hip surgery S/P hernia repair S/P hysterectomy S/P tubal ligation Social History (Updated 06/14/22 @ 20:[address] Candie Dover MD) household members: spouse Smoking Status: Former smoker alcohol intake: current alcohol intake frequency: a few times a month substance use type: does not use ROS ROS ED Constitutional Constitutional ED: Denies chills or fever(s) Eyes Eyes: Denies change in vision ENT ENT ED: Denies rhinorrhea or sore throat Cardiovascular Cardiovascular: Reports palpitations and racing heartbeat Respiratory/Chest Respiratory/Chest: Reports dyspnea; Denies cough Gastrointestinal Gastrointestinal: Denies abdominal pain, constipation, nausea or vomiting Genitourinary Genitourinary ED: Denies dysuria or hematuria Musculoskeletal Musculoskeletal: Denies arthralgias Integumentary Denies abscess or Abrasions Neurologic Neurologic: Denies headache(s) or paresthesias Psychiatric Psychiatric: Reports anxiety EXAM Physical Exam Const Vital Signs: 06/14/22 14:49 06/14/22 15:15 06/14/22 15:22 Temperature 97.3 F L Temperature Source Temporal Pulse Rate 160 H 109 H Respiratory Rate 18 14 Respiratory Pattern Blood Pressure 131/86 H 114/90 H Blood Pressure Mean 101 98 Pulse Ox 99 99 99 Oxygen Delivery Method Room Air Room Air Room Air 06/14/22 15:22 06/14/22 16:42 06/14/22 17:38 Temperature Temperature Source Pulse Rate 88 90 Respiratory Rate 16 16 Respiratory Pattern Normal Blood Pressure 110/82 H 132/91 H Blood Pressure Mean 91 104 Pulse Ox 96 97 Oxygen Delivery Method Room Air Room Air 06/14/22 18:55 Temperature Temperature Source Pulse Rate 74 Respiratory Rate 14 Respiratory Pattern Blood Pressure 155/87 H Blood Pressure Mean 109 Pulse Ox 97 Oxygen Delivery Method Room Air Positive well nourished General Appearance ED: NAD HEENT Reports moist mucous membranes Eyes PERRL and EOMs intact bilaterally Neck no lymphadenopathy Resp normal respiratory effort Cardio regular rhythm Rate: tachycardic Extremity normal to inspection General Extremety ED: Negative for edema or tenderness General Extremity: Negative for edema Neuro oriented x3 and CN's II-XII intact bilaterally Sensorium / Orientation: alert MDM MDM MDM Narrative Medical decision making narrative: Patient presenting with tachycardia. EKG shows SVT. Vagal maneuvers attempted and failed. Patient was given adenosine 6 mg IV which initially put her back into a sinus rhythm however she required 12 mg to convert her. She does not have any chest pain. She states she feels improved now that her heart rate slowed down. Patient believes she has a history of undiagnosed SVT because her heart rate will sometimes go into the 130s and 40s and last for short time. He states he was well prior to this episode. She states she thinks this came on because of stress at home. CBC to assess white blood cell count, hemoglobin, platelets, differential. BMP to assess renal function, electrolytes. High-sensitivity troponin, EKG, chest x-ray will also be obtained due to tachycardic rhythm. EKG showed SVT at a rate of 156 bpm second on my interpretation. Chest x-ray on my interpretation shows no acute cardiopulmonary process. Radiologist are persistent agrees. CBC shows a normal white blood cell count at 8.3. Hemoglobin macular stable. Platelets are normal. Renal function is normal. Calcium slightly low at 3.3. This was repleted orally. Patient was also given a liter of normal saline. Initial troponin 24 delta troponin 47. Discussed with cardiology (Dr. Olson) who recommended doing a third troponin. This was done in her troponin is now 76. At this point I will admit to the hospital. Discussed with hospitalist admission. Patient started on metoprolol 25 mg in the ED. She is given aspirin 325 mg as well. Impression: 1. SVT 2. Elevated troponin Lab Data Labs: Laboratory Results - last 24 hr 06/14/22 06/14/22 06/14/22 15:15 15:15 15:15 WBC 8.3 RBC 4.64 Hgb 13.3 Hct 40.3 MCV 86.9 MCH 28.7 MCHC 33.0 RDW Std Deviation 42.2 RDW Coeff of [place] 13.4 Plt Count 291 MPV 11.6 Immature Gran % (Auto) 0.200 Neut % (Auto) 62.5 Lymph % (Auto) 28.8 [place] % (Auto) 7.0 Eos % (Auto) 1.1 Baso % (Auto) 0.4 Absolute Neuts (auto) 5.2 Absolute Lymphs (auto) 2.40 Nucleated RBC % 0 Sodium 141 Potassium 3.3 L Chloride 108 H Carbon Dioxide 22.0 Anion Gap 11 BUN 22 H Creatinine 0.76 Estim Creat Clear Calc 79.41 Est GFR (MDRD) Af Amer 99 Est GFR (MDRD) Non-Af 82 BUN/Creatinine Ratio 28.8 H Glucose 124 H Calcium 10.6 H Troponin I High Sens 24 TSH 2.58 Free T4 1.27 Free T3 pg/dL 2.5 06/14/22 06/14/22 17:10 19:10 WBC RBC Hgb Hct MCV MCH MCHC RDW Std Deviation RDW Coeff of [place] Plt Count MPV Immature Gran % (Auto) Neut % (Auto) Lymph % (Auto) [place] % (Auto) Eos % (Auto) Baso % (Auto) Absolute Neuts (auto) Absolute Lymphs (auto) Nucleated RBC % Sodium Potassium Chloride Carbon Dioxide Anion Gap BUN Creatinine Estim Creat Clear Calc Est GFR (MDRD) Af Amer Est GFR (MDRD) Non-Af BUN/Creatinine Ratio Glucose Calcium Troponin I High Sens 47 76 H TSH Free T4 Free T3 pg/dL Radiography Diagnostic Testing: Clinical Impression(s) from Imaging Studies Chest X-Ray 06/14/22 15:26 IMPRESSION: No acute abnormality is seen. Electronically Signed: Noel Liz MD at 15:43 EDT , Discharge Plan Triage Chief Complaint: Palpitations ED Provider: Homer Samaniego Dx/Rx/DC Orders Prescriptions: No Action losartan-hydrochlorothiazide 1 EACH tablet 1 ea PO DAILY levothyroxine 75 MCG tablet 100 mcg PO DAILY cholecalciferol (vitamin D3) 2,000 UNIT tablet,chewable 1,000 unit PO DAILY oxycodone-acetaminophen [Percocet] 5-325 mg tablet 1 tab PO Q6H PRN (Reason: pain) 3 Days Qty: 12 0RF ondansetron 4 mg tablet,disintegrating 4 mg PO Q8H PRN (Reason: nausea and vomiting) Qty: 10 0RF tamsulosin [Flomax] 0.4 mg capsule 0.4 mg PO DAILY Qty: 7 0RF meloxicam 15 mg tablet 15 mg PO DAILY PRN PRN (Reason: Pain) Label Comments: TAKE 1 TABLET BY MOUTH ONCE DAILY WITH FOOD NEEDED oxycodone-acetaminophen [Percocet] 5-325 mg tablet 1 tab PO Q8H PRN (Reason: pain) 3 Days Qty: 14 0RF Primary Care Provider: Fly Parker Referrals: Fly Parker MD [Primary Care Provider] -
[2022-06-14 15:56] LABS: Anion Gap 11 (5-15); BUN 22 mg/dL (7-18); BUN/Creat Ratio 28.8 RATIO (10-20); Calcium,Total 10.6 mg/dL (8.5-10.1); Chloride 108 mmol/L (98-107); Creatinine, Serum 0.76 mg/dL (0.55-1.02); EST Glomerular Filtration Rate 82 mL/min (>60); Est Glom Filt Rate - Afr Amer 99 mL/min (>60); Estimated Creatinine Clearance 79.41 ml/min; Glucose 124 mg/dL (74-106); Potassium 3.3 mmol/L (3.5-5.1); Sodium Level 141 mmol/L (136-145); Troponin-I HS (w/2H Reflex) 24 pg/mL (3.0-54.0)
[2022-06-14 16:24] LABS: Free T3 2.5 pg/mL (2.18-3.98); T4 Free Direct 1.27 ng/dL (0.76-1.46); Thyroid Stim Hormone (TSH) 2.58 uIU/mL (0.358-3.74)
[2022-06-14 17:19] LABS: Reflex Troponin-HS? (from REC) Y
[2022-06-14] MEDS: Potassium Chloride Oral Tablet 20 MEQ 40 MEQ PO (17:37)
[2022-06-14 18:13] LABS: Troponin-I HS 47 pg/mL (3.0-54.0)
[2022-06-14 19:39] LABS: Troponin-I HS 76 pg/mL (3.0-54.0)
--- NOTE | 2022-06-14 20:19 | HP.PCM_ITS ---
HPI - General General Date of Admission: 06/14/22 Date of Service: 06/14/22 Chief Complaint: Palpitations, ongoing. HPI Narrative The patient is a 61 y/o F w/ PMHx: Chronic issues with patient reported episodic believed sinus tachycardia, Obesity, Former tobacco use, HTN, GERD, Hypothyroidism, Hx Nephrolithiasis with associated hydronephrosis prior who presents to the [facility] ED on 06/14/22 with history of palpitations starting approximately 1:30 in the afternoon on day of presentation with significantly increased stress initially feeling that this was the etiology with history of chronic tachycardia with heart rate sometimes running in the 130s with no associated chest pain however reported mild dyspnea with no nausea, emesis or diaphoresis but given ongoing prompted ED evaluation. Patient reports that normally when she had these episodes in the past she can calm herself down and they seem to spontaneously resolve. She has never seen a physician for these events. She denies any lightheadedness, dizziness or again any chest discomfort when these events have occurred in the past work-up in the ED included T97.3, initially heart rate 160 prior to administration of adenosine with most recent vital signs with heart rate 74, BP initially 131/86 with most recent repeat 155/87, respiratory rate 18, 99% room air, CBC with WBC 8.3, hemoglobin 13.3, platelet 291 without marked shift, BMP with potassium 3.3, chloride 108, BUN/Cr 22/0.76, glucose 124, calcium 10.6, troponin initial 24 with repeat delta 47 and most recent repeat 76, EKG upon initial ED evaluation with SVT with failure of vagal maneuvers, administered initially 6 mg IV x1 of adenosine with a follow-up adenosine 12 mg IV x1. Repeat EKG following administration of second dose of adenosine with conversion to sinus rhythm. Patient was additionally administered potassium chloride 40 mill equivalent p.o. x1. ED discussed case with Dr. Olson who recommended continued enzyme trending and planned evaluation. Discussed with ED physician and will start low dose metoprolol. [facility] Medical History (Updated 06/14/22 @ 20:[address] Candie Dover MD) Former smoker GERD (gastroesophageal reflux disease) History of hiatal hernia HTN (hypertension) Hydronephrosis Hypothyroidism Kidney stone on left side Left ureteral calculus Obesity Sciatic leg pain Wears glasses Home Medications cholecalciferol (vitamin D3) 50 mcg (2,000 unit) chewable tablet 1,000 unit PO DAILY 05/29/19 [History Last Taken 05/28/19] levothyroxine 75 mcg tablet 100 mcg PO DAILY 05/29/19 [History Last Taken 01/18/22] losartan 100 mg-hydrochlorothiazide 12.5 mg tablet 1 ea PO DAILY 05/29/19 [History Last Taken 05/28/19] meloxicam 15 mg tablet 15 mg PO DAILY PRN PRN Pain 01/17/22 [History Last Taken Unknown] ondansetron 4 mg disintegrating tablet 4 mg PO Q8H PRN nausea and vomiting #10 tabs 01/17/22 [Rx Last Taken Unknown] oxycodone-acetaminophen 5 mg-325 mg tablet (Percocet) 1 tab PO Q6H PRN pain 3 days #12 tabs 01/17/22 [Rx Last Taken Unknown] tamsulosin 0.4 mg capsule (Flomax) 0.4 mg PO DAILY #7 caps 01/17/22 [Rx Last Taken Unknown] oxycodone-acetaminophen 5 mg-325 mg tablet (Percocet) 1 tab PO Q8H PRN pain 3 days #14 tabs 01/18/22 [Rx Last Taken Unknown] Allergy/AdvReac Type Severity Reaction Status Date / Time No Known Allergies Allergy Verified 06/14/22 14:51 Family History Mother Heart disease CAD (coronary artery disease) Thyroid disorder Father Diabetes Heart disease Hypertension Kidney disease Cancer MM Surgical History History of hip surgery S/P hernia repair S/P hysterectomy S/P tubal ligation Social History (Updated 06/14/22 @ 20:[address] Candie Dover MD) household members: spouse Smoking Status: Former smoker how long ago did patient quit smoking: Quit in 1991, smoked age 17 until quit 2-4 cig/day. alcohol intake: current alcohol intake frequency: a few times a month substance use type: does not use ROS ROS Narrative Admission Review of Systems: CONSTITUTIONAL: No weight loss, fever, chills, weakness or fatigue. HEENT: Eyes: No visual loss, blurred vision, double vision or yellow sclerae. Ears, Nose, Throat: No hearing loss, sneezing, congestion, runny nose or sore throat. SKIN: No rash or itching, lesions, wounds. CARDIOVASCULAR: + Palpitations. No chest pain, chest pressure or chest discomfort, edema, orthopnea, syncopal events. RESPIRATORY: + Very minimal shortness of breath. No cough or sputum, wheezing, hemoptysis. GASTROINTESTINAL: No anorexia, nausea, vomiting or diarrhea, abdominal pain, melena, BRBPR. GENITOURINARY: No dysuria, frequency, urgency or retention. NEUROLOGICAL: No headache, dizziness, syncope, paralysis, ataxia, numbness or tingling in the extremities, focal weakness, change in bowel or bladder control, seizure. MUSCULOSKELETAL: No muscle, back pain, joint pain or stiffness. HEMATOLOGIC: No anemia, bleeding or bruising. LYMPHATICS: No enlarged nodes. No history of splenectomy. PSYCHIATRIC: + Suspect underlying depression or anxiety given significant life stressors. ENDOCRINOLOGIC: No reports of sweating, cold or heat intolerance. No polyuria or polydipsia. ALLERGIES: No history of asthma, hives, eczema or rhinitis. Vital Signs Vital Signs Vital Signs: 06/14/22 14:49 06/14/22 15:15 06/14/22 15:22 Temperature 97.3 F L Temperature Source Temporal Pulse Rate 160 H 109 H Respiratory Rate 18 14 Respiratory Pattern Blood Pressure 131/86 H 114/90 H Blood Pressure Mean 101 98 Pulse Ox 99 99 99 Oxygen Delivery Method Room Air Room Air Room Air 06/14/22 15:22 06/14/22 16:42 06/14/22 17:38 Temperature Temperature Source Pulse Rate 88 90 Respiratory Rate 16 16 Respiratory Pattern Normal Blood Pressure 110/82 H 132/91 H Blood Pressure Mean 91 104 Pulse Ox 96 97 Oxygen Delivery Method Room Air Room Air 06/14/22 18:55 Temperature Temperature Source Pulse Rate 74 Respiratory Rate 14 Respiratory Pattern Blood Pressure 155/87 H Blood Pressure Mean 109 Pulse Ox 97 Oxygen Delivery Method Room Air Weight Weight: 212 lb Body Mass Index (BMI) 32.2 Physical Exam Narrative Physical Examination: General: Awake, alert, oriented x 3 and cooperative, seated upright in the ED bed, fatigued appearing, complete resolution of prior palpitations with sinus rhythm ongoing Skin: Normal color, normal turgor, no icterus, no cyanosis. HEENT: AT/NC, EOMI, PERRLA, mildly dry MM, no carotid bruits or JVD noted. Lungs: CTA bilaterally, moderate effort, mild decrease BL bases, no rales, ronchi or wheezing. Heart: Improved regular rate and rhythm; no gallop, rub audible. Abdomen: Soft, obese, NTTP, ND, mildly hyperactive BS, no HSM. Extremities: No cyanosis, clubbing, or edema. Neurological: Patient awake, alert, oriented as noted cognitive function intact; pupils equally reactive to light and accommodation, cranial nerves II-XII grossly normal, moving all 4 extremities, no focal deficits, strength preserved. Psychiatric: Affect appears fatigued, mildly flat affect, from discussions do suspect likely underlying depression anxiety with significant life events over the course of the last several years. Results Lab / Micro Data Result Diagrams: 06/14/22 15:15 06/14/22 15:15 Labs: Laboratory Results - last 24 hr 06/14/22 15:15: WBC 8.3, RBC 4.64, Hgb 13.3, Hct 40.3, MCV 86.9, MCH 28.7, MCHC 33.0, RDW Std Deviation 42.2, RDW Coeff of Jarocho 13.4, Plt Count 291, MPV 11.6, Immature Gran % (Auto) 0.200, Neut % (Auto) 62.5, Lymph % (Auto) 28.8, [place] % (Auto) 7.0, Eos % (Auto) 1.1, Baso % (Auto) 0.4, Absolute Neuts (auto) 5.2, Abs olute Lymphs (auto) 2.40, Nucleated RBC % 0 06/14/22 15:15: Sodium 141, Potassium 3.3 L, Chloride 108 H, Carbon Dioxide 22.0, Anion Gap 11, BUN 22 H, Creatinine 0.76, Estim Creat Clear Calc 79.41, Est GFR (MDRD) Af Amer 99, Est GFR (MDRD) Non-Af 82, BUN/Creatinine Ratio 28.8 H, Glucose 124 H, Calcium 10.6 H, Troponin I High Sens 24 06/14/22 15:15: TSH 2.58, Free T4 1.27, Free T3 pg/dL 2.5 06/14/22 17:10: Troponin I High Sens 47 06/14/22 19:10: Troponin I High Sens 76 H Radiology Impression Chest X-Ray 06/14/22 15:26 IMPRESSION: No acute abnormality is seen. Electronically Signed: Noel Liz MD at 15:43 EDT , Assessment & Plan Assessment/Plan (1) SVT (supraventricular tachycardia): PLAN: Plan The patient is a 61 y/o F w/ PMHx: Chronic issues with patient reported episodic believed sinus tachycardia, Obesity, Former tobacco use, HTN, GERD, Hypothyroidism, Hx Nephrolithiasis with associated hydronephrosis prior who presents to the [facility] ED on 06/14/22 with history of palpitations starting approximately 1:30 in the afternoon on day of presentation with significantly increased stress initially feeling that this was the etiology with history of chronic tachycardia with heart rate sometimes running in the 130s with no associated chest pain however reported mild dyspnea with no nausea, emesis or diaphoresis but given ongoing prompted ED evaluation. #1. Palpitations secondary to SVT with associated elevated cardiac enzyme w/ suspected episodes PSVT prior: ED evaluation with troponin initial 24 with repeat delta 47 and most recent repeat 76, EKG upon initial ED evaluation with SVT with failure of vagal maneuvers, administered initially 6 mg IV x1 of adenosine with a follow-up adenosine 12 mg IV x1. Repeat EKG following administ ration of second dose of adenosine with conversion to sinus rhythm. Will admit to PCU, place on a monitored bed to assure no acute myocardial infarction with serial cardiac enzymes and EKGs. Currently elevated troponin likely secondary to prolonged SVT. Will add metoprolol low dose with initial dose in the ED. ECHO requested. Will continue Cardiology consultation initiated per ED as patient from description likely with assisted episodes of PSVT which have spontaneously resolved prior. ASA, NG, morphine. #2. Hypokalemia: Admission K+ 3.3, magnesium level request, supplementation given, repeat level in AM. #3. Hypertension: Continue home regimen including losartan, hydrochlorothiazide with adjustments as needed given acute presentation, adding metoprolol as noted #1, PRN hydralazine. #4. Hx Nephrolithiasis with associated hydronephrosis: We will continue patient home Flomax regimen, encourage continued outpatient follow-up with urology. #5. Hypothyroidism: We will continue patient home levothyroxine regimen, TSH 2.58, free T4 1.27, free T3 2.5 all within normal range. #6. Former tobacco use: Encourage continued tobacco cessation. #7. GERD: Per current list on a chronic regimen, will have as needed Mylanta. #8. Obesity: Weight loss and lifestyle changes encouraged. #9. DVT prophylaxis: Chemoprophylactic Lovenox, if enzymes significantly elevated then will transition to therapeutic. #10. CODE STATUS: Full code. Admission Evaluation Time spent evaluating chart, patient history, patient evaluation, care planning and discussion with specialists: 55 minutes. Charges/Coding Visit Charges Inpatient E&M: 32236 Init Hosp L2
[2022-06-14 20:49] LABS: AST(SGOT) 18 U/L (15-37); Alanine Aminotransfer ALT/SGPT 29 U/L (13-56); Albumin, Serum 3.7 g/dL (3.2-5.0); Alkaline Phosphatase 73 U/L (45-117); Bilirubin, Direct 0.16 mg/dL (0.00-0.30); Globulin 3.1 g/dL (2.2-4.2); Magnesium 2.2 mg/dL (1.6-2.6); Protein, Total 6.8 g/dL (6.4-8.2)
[2022-06-14] MEDS: Aspirin 325 MG Tablet PO (20:50)
--- NOTE | 2022-06-14 20:59 | ECHOCS_ITS ---
Reason For Study: Arrhythmia Procedure This was a 2D Doppler, Color Flow transthoracic echocardiogram. The study was technically difficult. Contrast injection was performed. Exam performed portable in patient room. Left Ventricle Normal LV size. Small high muscular VSD measuring approximately 0.3 cm. Left ventricular systolic function is normal. The estimated ejection fraction is 60 %. No regional wall motion abnormalities noted. Right Ventricle Normal RV size. Normal systolic function. Atria Normal left atrium. Normal right atrium. Bubble contrast study is positive for PFO. Mitral Valve Normal mitral valve. Mild (1+) eccentric mitral valve insufficiency. Tricuspid Valve Normal tricuspid valve. Aortic Valve Trisinus/trileaflet aortic valve. Pulmonic Valve Normal pulmonic valve. Great Vessels Normal aortic root. The pulmonary artery is normal size. Normal inferior vena cava. Pericardium/Pleural No pericardial effusion. Medication Diluted definity 2.5ml given slow IV push to enhance endocardial definition. Performed a rapid injection of agitated mix of 9 cc saline and 1cc air to assess for atrial septal defect. MMode/2D Measurements & Calculations LVIDd: 4.3 cm IVSd: 1.1 cm Ao root diam: 3.3 cm LVIDs: 3.3 cm LVPWd: 1.4 cm LA dimension: 4.0 cm RVDd: 3.0 cm FS: 22.3 % LAV(MOD-bp): 56.6 ml LA A4 area: 15.1 cm2 RA A4 area: 14.5 cm2 LAV(MOD-bp) Indexed: 26.9 ml/m2 LAV(MOD-sp2): 68.0 ml LAV(MOD-sp4): 40.5 ml Time Measurements MV dec time: 0.21 sec Doppler Measurements & Calculations MV E max tyrone: 69.0 cm/sec Lat Peak E' [place]: 11.1 cm/sec Med Peak E' [place]: 9.7 cm/sec MV A max tyrone: 62.4 cm/sec E/E' lat: 6.2 E/E' med: 7.1 MV E/A: 1.1 MV V2 max: 88.6 cm/sec MV dec slope: 321.9 cm/sec2 Ao V2 max: 140.2 cm/sec MV max P.1 mmHg Ao max P.9 mmHg MV V2 mean: 44.0 cm/sec Ao V2 mean: 97.3 cm/sec MV mean P.94 mmHg Ao mean P.3 mmHg MV V2 VTI: 28.5 cm Ao V2 VTI: 31.5 cm AV (velocity ratio): 0.88 LV V1 max: 121.2 cm/sec MR max tyrone: 490.0 cm/sec PA V2 max: 82.3 cm/sec LV V1 max P.9 mmHg MR max P.0 mmHg LV V1 mean P.1 mmHg MR mean tyrone: 386.9 cm/sec LV V1 mean: 82.3 cm/sec MR mean P.1 mmHg LV V1 VTI: 27.6 cm MR VTI: 193.5 cm ECHO/Echo Complete W/ Contrast Interpretation Summary Normal LV size. Left ventricular systolic function is normal. The estimated ejection fraction is 60 %. Small high muscular VSD measuring approximately 0.3 cm. Bubble contrast study is positive for PFO. Contrast injection was performed. Ordering Physician: Candie Dover Referring Physician: Fly Parker Performed By: Kevin Aleman RCS
--- NOTE | 2022-06-14 21:06 | NURSING ---
pt has had 2 COVID vaccinations, no cards/ administration dates available.
[2022-06-14] MEDS: 0.9% Normal Saline 1,000 ML 100 ML IV (21:39)
[2022-06-14] MEDS: Metoprolol Tartrate 25 MG Tablet PO (21:42)
[2022-06-14 22:37] LABS: Troponin-I HS 111 pg/mL (3.0-54.0)
[2022-06-15 01:46] LABS: Troponin-I HS 161 pg/mL (3.0-54.0)
[2022-06-15 03:11] VITALS: BP 124/67; PULSE 63; RESP 18; TEMP 36.4; O2SAT 93
[2022-06-15] MEDS: Enoxaparin 100 MG/ML Syringe SC (03:12)
[2022-06-15] MEDS: Levothyroxine 100 MCG Tablet PO (05:04)
[2022-06-15 05:58] LABS: Absolute Lymphocyte Count 2.08 X10^3/uL (0.83-4.51); Absolute Neutrophil Count 2.6 X10^3/uL (2.0-7.7); Basophil# 0.02 X10^3/uL; Basophil% 0.4 % (0-1); Eosinophil# 0.19 X10^3/uL; Eosinophils% 3.5 % (0-5); Hematocrit 32.7 % (37-47); Hemoglobin 10.7 g/dL (12.0-15.0); Lymphocyte # 2.08 X10^3/ul (0.83-4.51); Lymphocyte % 38.7 % (19-41); Mean Corp Hgb Conc 32.7 g/dL (32-36); Mean Corpuscular Hgb 29.1 pg (27.0-32.0); Mean Corpuscular Volume 88.9 fL (81-99); Mean Platelet Vol. 11.3 fl (6.2-12.0); Monocyte# 0.44 X10^3/uL; Monocyte% 8.2 % (0-10); NRBC Flagged by Analyzer 0 % (0-5); Neutrophil # 2.64 X10^3/uL (2.7-7.7); Platelet Count 190 K/mm3 (150-450); RBC Distribution Width CV 13.4 % (11.6-14.6); RBC Distribution Width SD 43.9 fl (35.1-43.9); Red Blood Count 3.68 M/mm3 (4.2-5.4); White Blood Count 5.4 K/mm3 (4.4-11.0)
[2022-06-15 05:59] VITALS: BMI 32.7
[2022-06-15 06:37] LABS: ALB/GLOB Ratio 1.1 RATIO (0.9-2.4); AST(SGOT) 16 U/L (15-37); Alanine Aminotransfer ALT/SGPT 26 U/L (13-56); Albumin, Serum 3.2 g/dL (3.2-5.0); Alkaline Phosphatase 63 U/L (45-117); Anion Gap 5 (5-15); BUN 15 mg/dL (7-18); BUN/Creat Ratio 33.6 RATIO (10-20); Calcium,Total 9.5 mg/dL (8.5-10.1); Chloride 114 mmol/L (98-107); Creatinine, Serum 0.45 mg/dL (0.55-1.02); EST Glomerular Filtration Rate 152 mL/min (>60); Est Glom Filt Rate - Afr Amer 184 mL/min (>60); Estimated Creatinine Clearance 134.11 ml/min; Globulin 2.8 g/dL (2.2-4.2); Glucose 93 mg/dL (74-106); Potassium 3.9 mmol/L (3.5-5.1); Sodium Level 143 mmol/L (136-145)
[2022-06-15 06:44] LABS: Troponin-I HS 178 pg/mL (3.0-54.0)
[2022-06-15 08:15] VITALS: O2SAT 94
--- NOTE | 2022-06-15 08:15 | CPS ---
Pt declined PEP & I.S., will do DBE on own and is getting discharged after her Echo.
[2022-06-15 08:21] VITALS: BP 157/90; PULSE 62; RESP 18; TEMP 37; O2SAT 99
--- NOTE | 2022-06-15 08:23 | CON.PCM.CA_ITS ---
Assessment & Plan Assessment/Plan (1) SVT (supraventricular tachycardia): PLAN: She does have a history of hypertension. She presents now with a supraventricular tachycardia which appears to be an AV landry reentrant tachycardia. I will like us to obtain an echocardiogram and depending on the findings further recommendations will be made. I did discuss with her that she would be an ideal candidate for radiofrequency ablation. She would like to have this done here locally. She can be discharged for an outpatient approach with this. Low-dose beta-fabienne with metoprolol XL 25 mg would likely suffice. I will make arrangements with direct marketing representative. (2) HTN (hypertension), benign: PLAN: She should continue with her losartan and the low-dose beta-fabienne. We will evaluate her echocardiogram. Thank you for allowing me to participate in the care of your patient. Please don't hesitate to call if any issues arise. HPI Consult Data Date of Consult: 06/15/22 HPI Narrative HPI Narrative: ARLETH CALLAHAN, is a 61 F who presents with palpitations which she says has been going on and off for few years. Yesterday however she appeared to have a sustained episode of it and so presented to the emergency room. She was noted to be in a narrow complex tachycardia with a rate of approximately 130 bpm. She was administered 6 mg of adenosine and then 12 mg with subsequent conversion to sinus rhythm. This morning she feels better. She has had no chest pain or shortness of breath or paroxysmal nocturnal dyspnea or pedal edema she has however had these palpitations in the past she does have a history of hypertension. She thinks this has been brought on by stress. She has had no dizziness or diaphoresis near syncope or syncope. [facility] Medical History Former smoker GERD (gastroesophageal reflux disease) History of hiatal hernia HTN (hypertension) Hydronephrosis Hypothyroidism Kidney stone on left side Left ureteral calculus Obesity Sciatic leg pain Wears glasses Home Medications cholecalciferol (vitamin D3) 50 mcg (2,000 unit) chewable tablet 1,000 unit PO DAILY 05/29/19 [History Last Taken 05/28/19] levothyroxine 75 mcg tablet 100 mcg PO DAILY 05/29/19 [History Last Taken 01/18/22] losartan 100 mg-hydrochlorothiazide 12.5 mg tablet 1 ea PO DAILY 05/29/19 [History Last Taken 05/28/19] meloxicam 15 mg tablet 15 mg PO DAILY PRN PRN Pain 01/17/22 [History Last Taken Unknown] ascorbic acid (vitamin C) 1,000 mg tablet (Vitamin C) 1 g PO DAILY 06/14/22 [History Last Taken Unknown] methenamine hippurate 1 gram tablet 1 g PO DAILY 06/14/22 [History Last Taken Unknown] Allergy/AdvReac Type Severity Reaction Status Date / Time No Known Allergies Allergy Verified 06/14/22 14:51 Family History Mother Heart disease CAD (coronary artery disease) Thyroid disorder Father Diabetes Heart disease Hypertension Kidney disease Cancer MM Surgical History History of hip surgery S/P hernia repair S/P hysterectomy S/P tubal ligation Social History household members: spouse Smoking Status: Former smoker how long ago did patient quit smoking: Quit in 1991, smoked age 17 until quit 2-4 cig/day. alcohol intake: current alcohol intake frequency: a few times a month substance use type: does not use ROS Constitutional Constitutional: Denies fever(s) or weight loss Eyes Eyes: Reports systems reviewed and no addt'l complaints, except as documented ENT HEENT: Reports systems reviewed and no addt'l complaints, except as documented Cardiovascular Cardiovascular: Denies chest pain at rest, chest pain with activity, dyspnea at rest, dyspnea on exertion, edema, palpitations or paroxysmal nocturnal dyspnea Respiratory/Chest Respiratory/Chest: Denies dyspnea on exertion, productive cough, shortness of breath at rest or shortness of breath with exertion Gastrointestinal Gastrointestinal: Denies change in bowel habits, nausea, vomiting or weight changes Genitourinary Genitourinary: Denies difficulty urinating Musculoskeletal Musculoskeletal: Denies joint stiffness or muscle weakness Integumentary Integumentary: Denies lesions Neurologic Neurologic: Denies dizziness or syncope Psychiatric Psychiatric: Denies anxiety Endocrine Endocrinology: Denies excessive sweating or fatigue Hematologic/Lymphatic Hematologic/Lymphatic: Denies anemia Allergic/Immunologic Allergic/Immunologic: Denies seasonal rhinorrhea Physical Exam Const alert, oriented x3 and no apparent distress General Appearance: cooperative HEENT hearing grossly normal bilaterally Head and Scalp: atraumatic Eyes EOMs intact bilaterally Neck General: normal visual inspection Chest inspection of chest normal and palpation of chest normal Resp normal respiratory effort Auscultation: clear to auscultation bilaterally Cardio regular rate, regular rhythm, S1 normal heart sound and S2 normal heart sound Jugular Venous Distention: JVD GI normal to inspection, nondistended, normoactive bowel sounds Extremity normal capillary refill and no pedal edema Peripheral Pulses: Yes pulses 2+ throughout and femoral pulses present Skin no rashes or lesions noted Neuro oriented x3 and CN's II-XII intact bilaterally Psych Appearance: grossly normal and appropriate Risk Stratification Risk Stratification Applicable: No Objective Data Vital Signs: Vital Signs Temp Pulse Resp BP Pulse Ox O2 Del Method 97.5 F L 63 18 124/67 H 93 Room Air 06/15/22 03:11 06/15/22 03:11 06/15/22 03:11 06/15/22 03:11 06/15/22 03:11 06/15/22 03:11 Oxygen Delivery Method Room Air Weight: 215 lb 6.266 oz Body Mass Index (BMI) 32.7 Intake & Output: Intake and Output for Last 24 Hours 06/13/22 06/14/22 06/15/22 23:59 23:59 23:59 Intake Total 1120 / 1120 Balance 1120 / 1120 Lab / Micro Data Result Diagrams: 06/15/22 05:35 06/15/22 05:35 Labs: Laboratory Results - last 24 hr 06/14/22 15:15: WBC 8.3, RBC 4.64, Hgb 13.3, Hct 40.3, MCV 86.9, MCH 28.7, MCHC 33.0, RDW Std Deviation 42.2, RDW Coeff of Jarocho 13.4, Plt Count 291, MPV 11.6, Immature Gran % (Auto) 0.200, Neut % (Auto) 62.5, Lymph % (Auto) 28.8, [place] % (Auto) 7.0, Eos % (Auto) 1.1, Baso % (Auto) 0.4, Absolute Neuts (auto) 5.2, Absolute Lymphs (auto) 2.40, Nucleated RBC % 0 06/14/22 15:15: Sodium 141, Potassium 3.3 L, Chloride 108 H, Carbon Dioxide 22.0, Anion Gap 11, BUN 22 H, Creatinine 0.76, Estim Creat Clear Calc 79.41, Est GFR (MDRD) Af Amer 99, Est GFR (MDRD) Non-Af 82, BUN/Creatinine Ratio 28.8 H, Glucose 124 H, Calcium 10.6 H, Troponin I High Sens 24 06/14/22 15:15: TSH 2.58, Free T4 1.27, Free T3 pg/dL 2.5 06/14/22 17:10: Troponin I High Sens 47 06/14/22 19:10: Troponin I High Sens 76 H 06/14/22 19:10: Magnesium 2.2, Total Bilirubin 0.40, Direct Bilirubin 0.16, AST 18, ALT 29, Alkaline Phosphatase 73, Total Protein 6.8, Albumin 3.7, Globulin 3.1 06/14/22 21:50: Troponin I High Sens 111 H 06/15/22 01:12: Troponin I High Sens 161 H* 06/15/22 05:35: WBC 5.4, RBC 3.68 L, Hgb 10.7 L, Hct 32.7 L, MCV 88.9, MCH 29.1, MCHC 32.7, RDW Std Deviation 43.9, RDW Coeff of Jarocho 13.4, Plt Count 190, MPV 11.3, Immature Gran % (Auto) 0.200, Neut % (Auto) 49.0, Lymph % (Auto) 38.7, [place] % (Auto) 8.2, Eos % (Auto) 3.5, Baso % (Auto) 0.4, Absolute Neuts (auto) 2.6, Absolute Lymphs (auto) 2.08, Nucleated RBC % 0 06/15/22 05:35: Sodium 143, Potassium 3.9, Chloride 114 H, Carbon Dioxide 24.0, Anion Gap 5, BUN 15, Creatinine 0.45 L, Estim Creat Clear Calc 134.11, Est GFR (MDRD) Af Amer 184, Est GFR (MDRD) Non-Af 152, BUN/Creatinine Ratio 33.6 H, Glucose 93, Calcium 9.5, Total Bilirubin 0.50, AST 16, ALT 26, Alkaline Phosphatase 63, Total Protein 6.0 L, Albumin 3.2, Globulin 2.8, Albumin/Globulin Ratio 1.1 06/15/22 05:35: Troponin I High Sens 178 H* Cardiology Labs/Tests 06/14/22 15:15: WBC 8.3, RBC 4.64, Hgb 13.3, Hct 40.3, MCV 86.9, MCH 28.7, MCHC 33.0, Plt Count 291, MPV 11.6, Immature Gran % (Auto) 0.200, Neut % (Auto) 62.5, Lymph % (Auto) 28.8, [place] % (Auto) 7.0, Eos % (Auto) 1.1, Baso % (Auto) 0.4, Absolute Neuts (auto) 5.2, Nucleated RBC % 0 06/14/22 15:15: Sodium 141, Potassium 3.3 L, Chloride 108 H, Carbon Dioxide 22.0, Anion Gap 11, BUN 22 H, Creatinine 0.76, Est GFR (MDRD) Af Amer 99, Est GFR (MDRD) Non-Af 82, BUN/Creatinine Ratio 28.8 H, Glucose 124 H, Calcium 10.6 H 06/14/22 19:10: Magnesium 2.2, Total Bilirubin 0.40, Direct Bilirubin 0.16 06/15/22 05:35: WBC 5.4, RBC 3.68 L, Hgb 10.7 L, Hct 32.7 L, MCV 88.9, MCH 29.1, MCHC 32.7, Plt Count 190, MPV 11.3, Immature Gran % (Auto) 0.200, Neut % (Auto) 49.0, Lymph % (Auto) 38.7, [place] % (Auto) 8.2, Eos % (Auto) 3.5, Baso % (Auto) 0.4, Absolute Neuts (auto) 2.6, Nucleated RBC % 0 06/15/22 05:35: Sodium 143, Potassium 3.9, Chloride 114 H, Carbon Dioxide 24.0, Anion Gap 5, BUN 15, Creatinine 0.45 L, Est GFR (MDRD) Af Amer 184, Est GFR (MDRD) Non-Af 152, BUN/Creatinine Ratio 33.6 H, Glucose 93, Calcium 9.5, Total Bilirubin 0.50 Rhythm: EKG: ECHO: Stress Test: Cardiac Cath: PCI: CT Surgery: Holter monitor: EPS: PPM: CXR: Chest CT Scan: Radiography Diagnostic Testing: Radiology Impression Chest X-Ray 06/14/22 15:26 IMPRESSION: No acute abnormality is seen. Electronically Signed: Noel Liz MD at 15:43 EDT ,
[2022-06-15 08:25] VITALS: BP 157/89; PULSE 62
[2022-06-15] MEDS: Losartan Potassium 100 MG Tablet PO (08:25)
[2022-06-15] MEDS: Metoprolol Tartrate 25 MG Tablet PO (08:25)
[2022-06-15] MEDS: hydroCHLOROthiazide 12.5mg 12.5 MG PO (08:25)
[2022-06-15] MEDS: Aspirin 81 MG TAB.CHEW PO (08:25)
--- NOTE | 2022-06-15 08:28 | PN.HOSP_ITS ---
Reason for Visit Reason for Visit: Diagnoses Supraventricular tachycardia (06/14/22) Subjective Subjective Patient is a 61-year-old female admitted with palpitations. EKG demonstrated PSVT admitted to a monitored bed for further management Objective Data Objective Data Vital Signs: Vital Signs Temp Pulse Resp BP Pulse Ox O2 Del Method 98.6 F 62 18 157/89 H 99 Room Air 06/15/22 08:21 06/15/22 08:25 06/15/22 08:21 06/15/22 08:25 06/15/22 08:21 06/15/22 08:21 Oxygen Delivery Method Room Air Weight: 97.7 kg Body Mass Index (BMI) 32.7 Intake & Output: Intake and Output for Last 24 Hours 06/13/22 06/14/22 06/15/22 23:59 23:59 23:59 Intake Total 1120 / 1120 Balance 1120 / 1120 Lab / Micro Data Result Diagrams: 06/15/22 05:35 06/15/22 05:35 Labs: Laboratory Results - last 24 hr 06/14/22 15:15: WBC 8.3, RBC 4.64, Hgb 13.3, Hct 40.3, MCV 86.9, MCH 28.7, MCHC 33.0, RDW Std Deviation 42.2, RDW Coeff of Jarocho 13.4, Plt Count 291, MPV 11.6, Immature Gran % (Auto) 0.200, Neut % (Auto) 62.5, Lymph % (Auto) 28.8, Todd % (Auto) 7.0, Eos % (Auto) 1.1, Baso % (Auto) 0.4, Absolute Neuts (auto) 5.2, Absolute Lymphs (auto) 2.40, Nucleated RBC % 0 06/14/22 15:15: Sodium 141, Potassium 3.3 L, Chloride 108 H, Carbon Dioxide 22.0, Anion Gap 11, BUN 22 H, Creatinine 0.76, Estim Creat Clear Calc 79.41, Est GFR (MDRD) Af Amer 99, Est GFR (MDRD) Non-Af 82, BUN/Creatinine Ratio 28.8 H, Glucose 124 H, Calcium 10.6 H, Troponin I High Sens 24 06/14/22 15:15: TSH 2.58, Free T4 1.27, Free T3 pg/dL 2.5 06/14/22 17:10: Troponin I High Sens 47 06/14/22 19:10: Troponin I High Sens 76 H 06/14/22 19:10: Magnesium 2.2, Total Bilirubin 0.40, Direct Bilirubin 0.16, AST 18, ALT 29, Alkaline Phosphatase 73, Total Protein 6.8, Albumin 3.7, Globulin 3.1 06/14/22 21:50: Troponin I High Sens 111 H 06/15/22 01:12: Troponin I High Sens 161 H* 06/15/22 05:35: WBC 5.4, RBC 3.68 L, Hgb 10.7 L, Hct 32.7 L, MCV 88.9, MCH 29.1, MCHC 32.7, RDW Std Deviation 43.9, RDW Coeff of Jarocho 13.4, Plt Count 190, MPV 11 .3, Immature Gran % (Auto) 0.200, Neut % (Auto) 49.0, Lymph % (Auto) 38.7, Todd % (Auto) 8.2, Eos % (Auto) 3.5, Baso % (Auto) 0.4, Absolute Neuts (auto) 2.6, Absolute Lymphs (auto) 2.08, Nucleated RBC % 0 06/15/22 05:35: Sodium 143, Potassium 3.9, Chloride 114 H, Carbon Dioxide 24.0, Anion Gap 5, BUN 15, Creatinine 0.45 L, Estim Creat Clear Calc 134.11, Est GFR (MDRD) Af Amer 184, Est GFR (MDRD) Non-Af 152, BUN/Creatinine Ratio 33.6 H, Glucose 93, Calcium 9.5, Total Bilirubin 0.50, AST 16, ALT 26, Alkaline Phosphatase 63, Total Protein 6.0 L, Albumin 3.2, Globulin 2.8, Albumin/Globulin Ratio 1.1 06/15/22 05:35: Troponin I High Sens 178 H* Radiography Diagnostic Testing: Radiology Impression Chest X-Ray 06/14/22 15:26 IMPRESSION: No acute abnormality is seen. Electronically Signed: Noel Liz MD at 15:43 EDT , Physical Exam Narrative GENERAL: cooperative HEENT: Atraumatic; normocephalic EYES; Anicteric, Normal Conjunctiva NECK; supple, normal thyroid, RESPIRATORY: Diminished to auscultation CARDIOVASCULAR: Regular S1 S2, GI: soft, normoactive bowel sounds, : No Renal angle tenderness; EXTREMITIES: No edema, no clubbing, MUSCULOSKELETAL: no muscle wasting NEURO: Awake; no lateralizing signs. SKIN: No Rash PSYCH; Flat affect Assessment & Plan Assessment/Plan (1) SVT (supraventricular tachycardia): PLAN: Plan Patient is a 61-year-old female admitted with palpitations. EKG demonstrated PSVT admitted to a monitored bed for further management 1. PSVT ? Admitted to monitored bed. Seen in consultation by cardiology recommended for patient to obtain 2D echo and initiation of metoprolol XL 25 mg daily 2. Hypokalemia ? Corrected per protocol 3. Hypertension - Blood pressure controlled, home medications continued with dose adjustment as needed 4. Hypothyroidism - Patient is on levothyroxine home dose continued 5. DVT prophylaxis ? SC Lovenox Time spent in the patient's overall evaluation,decision-making process, review of diagnostic data, adjustment of management, discussion with other providers, nursing nursing and ancillary staff involved in patient's care documentation, 35 Minutes Charges/Coding Visit Charges Inpatient E&M: 14268 [facility] L2
--- NOTE | 2022-06-15 09:46 | DS.PCM_ITS ---
Providers Date of Admission: 06/14/22 Date of Discharge: 06/15/22 Primary Care Physician: Dr. Fly Parker MD Consultations 06/14/22 20:59 Consult: Cardiology Routine Consulting Provider: Luli Olson Reason for Consult: SVT EMERGENT Consult: No MD Notified: Yes Date Notified: 06/14/22 Time Notified: 20:15 Method of Notification: Verbal Reason For Visit: SVT, ELEVATED TROPONIN Diagnosis Discharge Diagnosis (1) SVT (supraventricular tachycardia): Status: Acute Code(s): I47.1 - Supraventricular tachycardia Plan Patient is a 61-year-old female admitted with palpitations. EKG demonstrated PSVT admitted to a monitored bed for further management 1. PSVT ? Admitted to monitored bed. Seen in consultation by cardiology recommended for patient to obtain 2D echo and initiation of metoprolol XL 25 mg daily Normal LV size. Left ventricular systolic function is normal. The estimated ejection fraction is 60 %. Small high muscular VSD measuring approximately 0.3 cm. Bubble contrast study is positive for PFO. Contrast injection was performed. ? ?Patient was discharged home on aspirin as well as beta-blockers with plans for patient to follow-up with cardiology as outpatient for ablation 2. Hypokalemia ? Corrected per protocol 3. Hypertension - Blood pressure controlled, home medications continued with dose adjustment as needed 4. Hypothyroidism - Patient is on levothyroxine home dose continued 5. DVT prophylaxis ? SC Lovenox Time spent in the patient's overall evaluation,decision-making process, review of diagnostic data, adjustment of management, discussion with other providers, nursing nursing and ancillary staff involved in patient's care documentation, 35 Minutes Medications at Discharge Home Medications cholecalciferol (vitamin D3) 50 mcg (2,000 unit) chewable tablet 1,000 unit PO DAILY 05/29/19 levothyroxine 75 mcg tablet 100 mcg PO DAILY 05/29/19 losartan 100 mg-hydrochlorothiazide 12.5 mg tablet 1 ea PO DAILY 05/29/19 meloxicam 15 mg tablet 15 mg PO DAILY PRN PRN Pain 01/17/22 ascorbic acid (vitamin C) 1,000 mg tablet (Vitamin C) 1 g PO DAILY 06/14/22 methenamine hippurate 1 gram tablet 1 g PO DAILY 06/14/22 aspirin 81 mg tablet,delayed release (Ecotrin Low Strength) 81 mg PO DAILY #90 tabs 06/15/22 metoprolol succinate 25 mg tablet,extended release 24 hr 25 mg PO DAILY #90 tabs 06/15/22 Hospital Course Procedures 2-D Echocardiogram Summary of Care Provided Minutes Spent on Discharge: 35 Physical Exam Narrative GENERAL: cooperative HEENT: Atraumatic; normocephalic EYES; Anicteric, Normal Conjunctiva NECK; supple, normal thyroid, RESPIRATORY: Diminished to auscultation CARDIOVASCULAR: Regular S1 S2, GI: soft, normoactive bowel sounds, : No Renal angle tenderness; EXTREMITIES: No edema, no clubbing, MUSCULOSKELETAL: no muscle wasting NEURO: Awake; no lateralizing signs. SKIN: No Rash PSYCH; Flat affect Weight / BMI Weight Weight: 97.7 kg Body Mass Index (BMI) 32.7 ABG / Lab / Microbiology Data Result Diagrams: 06/15/22 05:35 06/15/22 05:35 Laboratory: Laboratory Results - last 24 hr 06/14/22 15:15: WBC 8.3, RBC 4.64, Hgb 13.3, Hct 40.3, MCV 86.9, MCH 28.7, MCHC 33.0, RDW Std Deviation 42.2, RDW Coeff of Jarocho 13.4, Plt Count 291, MPV 11.6, Immature Gran % (Auto) 0.200, Neut % (Auto) 62.5, Lymph % (Auto) 28.8, [place] % (Auto) 7.0, Eos % (Auto) 1.1, Baso % (Auto) 0.4, Absolute Neuts (auto) 5.2, Absolute Lymphs (auto) 2.40, Nucleated RBC % 0 06/14/22 15:15: Sodium 141, Potassium 3.3 L, Chloride 108 H, Carbon Dioxide 22.0, Anion Gap 11, BUN 22 H, Creatinine 0.76, Estim Creat Clear Calc 79.41, Est GFR (MDRD) Af Amer 99, Est GFR (MDRD) Non-Af 82, BUN/Creatinine Ratio 28.8 H, Glucose 124 H, Calcium 10.6 H, Troponin I High Sens 24 06/14/22 15:15: TSH 2.58, Free T4 1.27, Free T3 pg/dL 2.5 06/14/22 17:10: Troponin I High Sens 47 06/14/22 19:10: Troponin I High Sens 76 H 06/14/22 19:10: Magnesium 2.2, Total Bilirubin 0.40, Direct Bilirubin 0.16, AST 18, ALT 29, Alkaline Phosphatase 73, Total Protein 6.8, Albumin 3.7, Globulin 3.1 06/14/22 21:50: Troponin I High Sens 111 H 06/15/22 01:12: Troponin I High Sens 161 H* 06/15/22 05:35: WBC 5.4, RBC 3.68 L, Hgb 10.7 L, Hct 32.7 L, MCV 88.9, MCH 29.1, MCHC 32.7, RDW Std Deviation 43.9, RDW Coeff of Jarocho 13.4, Plt Count 190, MPV 11.3, Immature Gran % (Auto) 0.200, Neut % (Auto) 49.0, Lymph % (Auto) 38.7, [place] % (Auto) 8.2, Eos % (Auto) 3.5, Baso % (Auto) 0.4, Absolute Neuts (auto) 2.6, Absolute Lymphs (auto) 2.08, Nucleated RBC % 0 06/15/22 05:35: Sodium 143, Potassium 3.9, Chloride 114 H, Carbon Dioxide 24.0, Anion Gap 5, BUN 15, Creatinine 0.45 L, Estim Creat Clear Calc 134.11, Est GFR (MDRD) Af Amer 184, Est GFR (MDRD) Non-Af 152, BUN/Creatinine Ratio 33.6 H, Glucose 93, Calcium 9.5, Total Bilirubin 0.50, AST 16, ALT 26, Alkaline Phosphatase 63, Total Protein 6.0 L, Albumin 3.2, Globulin 2.8, Albumin/Globulin Ratio 1.1 06/15/22 05:35: Troponin I High Sens 178 H* Radiography Diagnostic Testing: Radiology Impression Chest X-Ray 06/14/22 15:26 IMPRESSION: No acute abnormality is seen. Electronically Signed: Noel Liz MD at 15:43 EDT , D/C Instructions Discharge Diet: No restrictions Discharge Activity: Return to Normal Activity Call your doctor if you observe: Fever of 101 or Higher, Shortness of breath, Fainting spells and Chest pain Meaningful Use Info Meaningful Use Diagnoses (Choose all that apply): None applicable Discharge Plan Admission Admit Date/Time: 06/14/22 20:11 Attending Provider: Torsten Lyn Primary Care Provider: Fly Parker Consulting Providers: Luli Olson ; Candie Dover Discharge Orders/Prescriptions Prescriptions: New metoprolol succinate 25 mg tablet extended release 24 hr 25 mg PO DAILY Qty: 90 0RF aspirin [Ecotrin Low Strength] 81 mg tablet,delayed release (DR/EC) 81 mg PO DAILY Qty: 90 0RF Continued losartan-hydrochlorothiazide 1 EACH tablet 1 ea PO DAILY levothyroxine 75 MCG tablet 100 mcg PO DAILY cholecalciferol (vitamin D3) 2,000 UNIT tablet,chewable 1,000 unit PO DAILY meloxicam 15 mg tablet 15 mg PO DAILY PRN PRN (Reason: Pain) Label Comments: TAKE 1 TABLET BY MOUTH ONCE DAILY WITH FOOD NEEDED ascorbic acid (vitamin C) [Vitamin C] 1,000 mg Tablet 1 g PO DAILY methenamine hippurate 1 gram tablet 1 g PO DAILY Referrals / Follow Up: Rene Washington MD [Med Staff - Active Staff] - Within 2 Weeks Fly Parker MD [Primary Care Provider] - In 1 Week Disposition Disposition (needs filled in before D/C Order can be placed): Home, Self Care Charges/Coding Visit Charges Inpatient E&M: 38804 Disch Hosp >30min
== END 2022-06-15 13:14 | disposition home or self-care (01) ==
LOC: ED 16:00 → PCU 20:26
PROVIDERS: Admitting Provider Family Medicine; Emergency Provider Student in an Organized Health Care Education/Training Program; PCP Family Medicine; Visit Provider Internal Medicine
DX: I47.1 Supraventricular tachycardia (principal); R77.8 Other specified abnormalities of plasma proteins; E87.6 Hypokalemia; I10 Essential (primary) hypertension; Z63.79 Other stressful life events affecting family and household; R00.2 Palpitations; Z87.891 Personal history of nicotine dependence; E03.9 Hypothyroidism, unspecified; Z79.890 Hormone replacement therapy; Z79.899 Other long term (current) drug therapy; K21.9 Gastro-esophageal reflux disease without esophagitis; E66.9 Obesity, unspecified; Z68.32 Body mass index [BMI] 32.0-32.9, adult
CPT/HCPCS: 99285; 36415; 71045; 80048; 80053; 80076; 83735; 84439; 84443; 84481; 84484; 85025; 93005; 93306; 96361; 96372; 96374; 99221; J7030; Q9957; A4216; C8929; G0378; J0153

== ENCOUNTER 2022-07-26 08:29 | Day surgery (SDC) | payer OTHER, SELFPAY ==
[2022-07-11 11:40] LABS: Absolute Lymphocyte Count 2.02 X10^3/uL (0.83-4.51); Absolute Neutrophil Count 3.7 X10^3/uL (2.0-7.7); Basophil# 0.03 X10^3/uL; Basophil% 0.5 % (0-1); Eosinophils% 4.5 % (0-5); Hemoglobin 11.6 g/dL (12.0-15.0); Lymphocyte # 2.02 X10^3/ul (0.83-4.51); Lymphocyte % 30.6 % (19-41); Mean Corp Hgb Conc 32.2 g/dL (32-36); Mean Corpuscular Hgb 28.7 pg (27.0-32.0); Mean Corpuscular Volume 89.1 fL (81-99); Mean Platelet Vol. 11.6 fl (6.2-12.0); Monocyte# 0.56 X10^3/uL; Monocyte% 8.5 % (0-10); NRBC Flagged by Analyzer 0 % (0-5); Neutrophil # 3.68 X10^3/uL (2.7-7.7); Neutrophil % 55.6 % (47-70); Platelet Count 200 K/mm3 (150-450); RBC Distribution Width CV 13.4 % (11.6-14.6); RBC Distribution Width SD 43.8 fl (35.1-43.9); Red Blood Count 4.04 M/mm3 (4.2-5.4); White Blood Count 6.6 K/mm3 (4.4-11.0)
[2022-07-11 11:57] LABS: Prothrombin Time (Protime)PT. 13.3 SECONDS (11.7-14.9)
[2022-07-11 12:04] LABS: Anion Gap 2 (5-15); BUN 18 mg/dL (7-18); BUN/Creat Ratio 29.3 RATIO (10-20); Calcium,Total 9.7 mg/dL (8.5-10.1); Chloride 109 mmol/L (98-107); Creatinine, Serum 0.61 mg/dL (0.55-1.02); EST Glomerular Filtration Rate 105 mL/min (>60); Est Glom Filt Rate - Afr Amer 127 mL/min (>60); Glucose 91 mg/dL (74-106); Potassium 3.9 mmol/L (3.5-5.1); Sodium Level 139 mmol/L (136-145)
[2022-07-25 07:52] VITALS: BMI 33.3
--- NOTE | 2022-07-26 12:20 | ELECTROSTU_ITS ---
Electrophysiology Report Electrophysiology Report The patient has recurrent narrow complex tachycardia despite beta-fabienne therapy and here for catheter ablation. After informed consent the right groin was prepped and draped in usual sterile manner intermittent boluses of Versed and fentanyl fentanyl were used for sedation IV heparin was administered. The right femoral vein was cannulated with the Seldinger technique with a 12 [place] Tri-Port. Diagnostic electrophysiology testing was performed at baseline and during Isuprel then followed by catheter ablation. In the baseline state there was normal sinus and AV node function as well as normal infranodal conduction. Sinus cycle length was at thousand AH 95 HV 40 maximum sinus node recovery time was 1180 corrected sinus node recovery time is 180 AV block cycle length is 450 VA block cycle length is 390 there is decremental retrograde conduction the AV node effective refractory period is [address] cycle length of 550. There is no dual AV node physiology there is no AV landry jump there is no AV landry echo beat. There is no preexcitation. There is no inducible tachycardia. During 3 mcg infusion of Isuprel the sinus cycle length was 530 the AV block cycle length was 280 the AV node ERP is less than [address] of 500. 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 The cycle length was 378 the VA interval measured at the hiss was 40 the tachycardia did spontaneously terminate with AV block. In the baseline state the triangle of muir was mapped as well as the coronary sinus os and coronary sinus. There is pacing and recording from the coronary sinus os. There is also establishment of the location of the AV junction and the hiss with the ablation catheter. Radiofrequency lesion ablations were applied at the anterior lip of the coronary sinus and the most inferior region resulting in junctional ectopy. Multiple radiofrequency energy was delivered in around this area with an occasional junctional beats as well. Post ablation there was normal sinus and AV node function there is no inducible tachycardia with and without Isuprel the AV block cycle length and baseline was 400 and during Isuprel infusion was 280 the HV interval was 45 post ablation. There were no complications. In conclusion the patient had successful slow pathway ablation for management of typical AV landry reentrant tachycardia the patient will discontinue the beta-fabienne and have clinical follow-up
== END 2022-07-26 15:36 | disposition home or self-care (01) ==
LOC: CLSP 08:30
PROVIDERS: Nurse Practitioner Gerontology; PCP Family Medicine; Referring Provider Internal Medicine Cardiovascular Disease; Visit Provider Internal Medicine Cardiovascular Disease
DX: I47.1 Supraventricular tachycardia (principal); K21.9 Gastro-esophageal reflux disease without esophagitis; I10 Essential (primary) hypertension; E03.9 Hypothyroidism, unspecified; Z82.49 Family history of ischemic heart disease and other diseases of the circulatory system; Z87.891 Personal history of nicotine dependence
CPT/HCPCS: 36415; 80048; 85025; 85610; 93609; 93623; 93653; 99152; 99153; C1730; C1733; C1894; J7040

== ENCOUNTER → 2022-09-19 | Outpatient (CLI) | payer OTHER, SELFPAY ==
--- NOTE | 2022-09-19 10:45 | BI_ITS ---
MAMMOGRAPHY - BILATERAL SCREENING REASON FOR EXAM: Female, 61 years old. Routine annual screening examination. PERTINENT HISTORY: Non-contributory. History of prior left ultrasound-guided breast biopsy. TECHNIQUE: Digital bilateral breast richard (3D mammographic acquisition) in the CC and MLO projections. 2-D mediolateral oblique (MLO) and craniocaudad (CC) views of both breasts were obtained. CAD: Full Field Digital Mammography with Computer Added Detection was performed. COMPARISON: Comparison is made with prior study dated June 30, 2021 and June 03, 2020. FINDINGS: Breast Composition: There are scattered areas of fibroglandular density. There are no dominant masses or suspicious calcifications. Tissue clip marker is seen within the tiny nodule in the inferior medial aspect of the left breast. Stable small benign-appearing bilateral axillary lymph nodes. No other significant abnormalities are identified. There has been no significant change since the prior study. BI/SCRN MAMM (CAD)W/RICHARD BILAT IMPRESSION: Stable bilateral screening mammogram. Yearly follow-up mammogram recommended. (A) ASSESSMENT CATEGORY: BIRADS Category 2: Benign. A letter regarding these results will be sent to the patient by the facility within 30 days. Approximately 10% of breast cancers are not detected by mammography. A normal mammogram should not delay biopsy of a clinically suspicious abnormality. [id number] Electronically Signed: Noel Liz MD at 11:48 EDT ,
== END | disposition home or self-care (01) ==
LOC: OPBI 10:44
PROVIDERS: PCP Family Medicine; Referring Provider Family Medicine; Visit Provider Family Medicine
DX: Z12.31 Encounter for screening mammogram for malignant neoplasm of breast (principal)
CPT/HCPCS: 77063; 77067

== ENCOUNTER → 2023-08-29 | Outpatient (CLI) | payer OTHER, SELFPAY ==
[2023-08-29 17:55] LABS: Absolute Lymphocyte Count 1.81 X10^3/uL (0.83-4.51); Absolute Neutrophil Count 3.5 X10^3/uL (2.0-7.7); Basophil# 0.03 X10^3/uL; Basophil% 0.5 % (0-1); Eosinophil# 0.31 X10^3/uL; Hematocrit 35.8 % (37-47); Hemoglobin 11.4 g/dL (12.0-15.0); Lymphocyte # 1.81 X10^3/ul (0.83-4.51); Lymphocyte % 29.3 % (19-41); Mean Corp Hgb Conc 31.8 g/dL (32-36); Mean Corpuscular Hgb 28.3 pg (27.0-32.0); Mean Corpuscular Volume 88.8 fL (81-99); Mean Platelet Vol. 11.2 fl (6.2-12.0); Monocyte% 8.1 % (0-10); NRBC Flagged by Analyzer 0 % (0-5); Neutrophil # 3.51 X10^3/uL (2.7-7.7); Neutrophil % 56.9 % (47-70); Platelet Count 221 K/mm3 (150-450); RBC Distribution Width CV 13.4 % (11.6-14.6); RBC Distribution Width SD 44.2 fl (35.1-43.9); Red Blood Count 4.03 M/mm3 (4.2-5.4); White Blood Count 6.2 K/mm3 (4.4-11.0)
[2023-08-29 18:46] LABS: CRP 8.15 mg/L (0.0-3.0)
[2023-08-31 11:10] LABS: Lyme Scn Total Ab w/Rflx Negative (Negative)
== END | disposition home or self-care (01) ==
LOC: LAB 17:36
PROVIDERS: PCP Family Medicine; Referring Provider Family Medicine; Visit Provider Family Medicine
DX: R53.81 Other malaise (principal)
CPT/HCPCS: 36415; 85025; 86140; 86618

== ENCOUNTER 2023-09-03 10:34 | Emergency (ER) | payer OTHER, SELFPAY ==
[2023-09-03 10:35] VITALS: BP 184/98; PULSE 76; RESP 16; TEMP 37; O2SAT 98; BMI 32.1
--- NOTE | 2023-09-03 10:48 | EX.ED.DYSGE1 ---
HPI History of Present Illness Chief Complaint: Abd Pain PFSH PFS Medical History (Reviewed 03/06/23 @ 08:27 by Shayla Smith PROFESSIONAL SYSTEM ADMINISTRATOR, PROFESSIONAL SYSTEM ADMINISTRATOR-C) Former smoker GERD (gastroesophageal reflux disease) History of hiatal hernia HTN (hypertension) Hydronephrosis Hypothyroidism Kidney stone on left side Left ureteral calculus Obesity Sciatic leg pain VSD (ventricular septal defect) Wears glasses Home Medications ?Medication ?Instructions ?Recorded ?Last Taken ?Type cholecalciferol (vitamin D3) 50 1,000 unit PO DAILY 05/29/19 05/28/19 History mcg (2,000 unit) chewable tablet levothyroxine 75 mcg tablet 100 mcg PO DAILY 05/29/19 07/26/22 History losartan 100 1 ea PO DAILY 05/29/19 05/28/19 History mg-hydrochlorothiazide 12.5 mg tablet meloxicam 15 mg tablet 15 mg PO DAILY PRN PRN Pain 01/17/22 Unknown History ascorbic acid (vitamin C) 1,000 mg 1 g PO DAILY 06/14/22 Unknown History tablet (Vitamin C) aspirin 81 mg tablet,delayed 81 mg PO DAILY #90 tabs 06/15/22 07/26/22 Rx release (Ecotrin Low Strength) multivitamin (One Daily 1 tab PO DAILY 03/06/23 Unknown History Multivitamin tablet) ondansetron 4 mg disintegrating 4 mg PO Q8H PRN PRN Nausea #10 tabs 09/03/23 Unknown Rx tablet Allergy/AdvReac Type Severity Reaction Status Date / Time No Known Allergies Allergy Verified 09/03/23 10:34 Family History Mother Heart disease CAD (coronary artery disease) Thyroid disorder Father Diabetes Heart disease Hypertension Kidney disease Cancer MM Surgical History History of hip surgery S/P hernia repair S/P hysterectomy S/P tubal ligation Social History household members: spouse Smoking Status: Former smoker how long ago did patient quit smoking: Quit in 1991, smoked age 17 until quit 2-4 cig/day. alcohol intake: current alcohol intake frequency: a few times a month substance use type: does not use EXAM Physical Exam Const Vital Signs: 09/03/23 10:35 09/03/23 12:34 09/03/23 13:00 Temperature 98.6 F Temperature Source Temporal Pulse Rate 76 80 82 Respiratory Rate 16 16 16 Blood Pressure 184/98 H 190/95 H 161/95 H Blood Pressure Mean 126 126 117 Pulse Ox 98 99 99 Oxygen Delivery Method Room Air Room Air Room Air 09/03/23 13:09 Temperature 98.4 F Temperature Source Pulse Rate 78 Respiratory Rate 16 Blood Pressure 165/92 H Blood Pressure Mean 116 Pulse Ox 97 Oxygen Delivery Method [facility] [place] Narrative Medical decision making narrative: HISTORY OF PRESENT ILLNESS: 62year old female presents with abdominal pain. Notes 2 days of right greater than left back pain that radiates to the groin feels like prior kidney stone. No frequency urgency or hematuria noted. No vaginal bleeding or discharge. Last bowel movement was today with no reported melena or hematochezia. No vomiting or chest pain. REVIEW OF SYSTEMS: All other systems reviewed and are negative except as noted in the history of present illness. At least 10 review of systems reviewed and are negative except as noted in history of present illness. PHYSICAL EXAM: Nursing triage notes reviewed, Vital signs reviewed Constitutional: please see mdm HENT: MMM Eyes: Pupils equal round and reactive to light, Extraocular muscles intact Neck: No stridor, no JVD, full neck ROM Lungs: Clear to auscultation, No wheezing or rales. No increased work of breathing, no conversational dyspnea, no accessory muscle use, no nasal flaring. No respiratory distress noted Heart: Regular rate and rhythm, No murmurs, No rubs and No gallops, 2+ distal pulses (radial, femoral, posterior tibial) in all extremities Abdomen: Soft, no rigidity, rebound or guarding, no obvious peritoneal signs, no palpable pulsatile abdominal masses, no auscultated abdominal bruit : right greater than left CVA tenderness Extremities: No edema Neuro: No focal neurological deficits, cranial nerves II through XII intact, 5/5 strength in all extremities. Intact sensation to light touch in all extremities, 2+ reflexes bilateral patella tendons. Normal gait. No ataxia. Skin: No rash or lesions noted MEDICAL DECISION MAKING: Chief Complaint: abdominal pain External records reviewed: imaging reviewed: CT scan of the abdomen pelvis from 2021 shows submillimeter kidney stone at the UVJ with hydronephrosis Factors affecting care: Nephrolithiasis, hydronephrosis Social determinants of health:none History obtained from others: none Consults: none [facility] Narrative: Patient was initially hypertensive otherwise hemodynamically stable afebrile and nontoxic-appearing. Right CVA tenderness noted. Abdomen was soft nontender with no peritoneal signs. I considered the following differential diagnosis: AAA, small bowel obstruction, abdominal perforation, appendicitis, pancreatitis, hepatobiliary pathology (acute cholecystitis), mesenteric ischemia, abnormalities such as pyelonephritis, nephrolithiasis I obtained a broad lab and imaging workup to further elucidate etiology patient complaints. I treat the patient with IV fluids, Toradol and Zofran for symptomatic control. ALL IMAGES (IF OBTAINED) HAVE BEEN PERSONALLY REVIEWED AND INTERPRETED BY MYSELF. CT scan of the abdomen pelvis shows no evidence of acute intra-abdominal pathology including evidence of AAA, acute appendicitis, nephrolithiasis, hydronephrosis CBC with no leukocytosis, noted mild anemia, no thrombocytopenia BMP without significant electrolyte abnormalities, no evidence of endorgan hypoperfusion, no evidence of metabolic acidosis LFTs show no evidence of hepatobiliary pathology. Lipase is wnl indicating no pancreatic inflammation. UA consistent with hematuria but no signs of UTI The synthesis of the patient's history, physical exam, labs images suggest no acute life-limiting etiology specifically no signs of intra-abdominal surgical pathology such as acute appendicitis, large nephrolithiasis, AAA, intra-abdominal abscess obstruction or perforation. I see nothing that would suggest an acute abdomen at this time. Based on history physical exam, risk factors, my suspicion for bowel obstruction, incarcerated hernia, perforated viscus, acute cholecystitis, appendicitis is very low. There is no evidence of peritonitis sepsis or toxicity at this time. I feel the patient can be managed as an outpatient with follow-up with her/his primary physician in the next 24 to 48 hours or soon as possible. Instructions have been given for the patient to return to the ED for worsening pain, anorexia, high fevers, intractable vomiting or bleeding. The patient and/or family, caregivers express understanding. The patient and/or family, caregivers agrees with the plan. Total critical care time today provided was at least 0 minutes. This excludes separately billable procedures. Critical care time (if documented) is secondary to the patient having high probability of clinically significant/life threatening deterioration in the patient's condition which required my urgent intervention. Shared decision making: I will have a discussion with the patient and or visitors regarding risk/benefits of further testing or admission. They will be made aware of of the risk/benefits inherent in this decision they will be given the opportunity to voice understanding. Impression: 1. Abdominal pain 2. Hematuria 3. Chronic anemia Disposition: Discharge home Nino Franklin DO This note was generated with ArriveBefore dictation software. It may contain incorrect words, spelling, and punctuation that were not noted in review of the chart prior to signing. Lab Data Labs: Laboratory Results - last 24 hr 09/03/23 09/03/23 11:15 12:25 WBC 6.8 RBC 4.10 L Hgb 11.6 L Hct 35.7 L MCV 87.1 MCH 28.3 MCHC 32.5 RDW Std Deviation 43.7 RDW Coeff of Jarocho 13.7 Plt Count 219 MPV 10.9 Immature Gran % (Auto) 0.300 Neut % (Auto) 68.0 Lymph % (Auto) 23.6 Hettinger % (Auto) 6.5 Eos % (Auto) 1.3 Baso % (Auto) 0.3 Absolute Neuts (auto) 4.6 Absolute Lymphs (auto) 1.59 Nucleated RBC % 0 Sodium 136 Potassium 3.7 Chloride 109 H Carbon Dioxide 25.0 Anion Gap 2 L BUN 23 H Creatinine 0.66 Estim Creat Clear Calc 108.33 Est GFR (MDRD) Af Amer 117 Est GFR (MDRD) Non-Af 97 BUN/Creatinine Ratio 34.9 H Glucose 92 Calcium 10.1 Total Bilirubin 0.30 Direct Bilirubin 0.09 AST 30 ALT 49 Alkaline Phosphatase 79 Total Protein 7.2 Albumin 3.9 Globulin 3.3 Lipase 31 Urine Color Yellow Urine Clarity Clear Urine pH 6.5 Ur Specific Berry 1.010 Urine Protein 15 H Urine Glucose (UA) Normal Urine Ketones Negative Urine Occult Blood 50 H Urine Nitrite Negative Urine Bilirubin Negative Urine Urobilinogen Normal Ur Leukocyte Esterase Negative Radiography Diagnostic Testing: Clinical Impression(s) from Imaging Studies Abdomen/Pelvis CT 09/03/23 11:18 IMPRESSION: Bilateral renal cysts. Nonobstructive calculus in the midportion of the right kidney. Hiatal hernia. Electronically Signed: Noel Liz MD at 12:53 EDT , Discharge Plan Triage Chief Complaint: Abd Pain ED Provider: Nino Franklin Dx/Rx/DC Orders Instructions: ED Flank Pain, Uncertain Cause Prescriptions: New ondansetron 4 mg tablet,disintegrating 4 mg PO Q8H PRN PRN (Reason: Nausea) Qty: 10 0RF No Action multivitamin [One Daily Multivitamin] Tablet 1 tab PO DAILY losartan-hydrochlorothiazide 1 EACH tablet 1 ea PO DAILY levothyroxine 75 MCG tablet 100 mcg PO DAILY cholecalciferol (vitamin D3) 2,000 UNIT tablet,chewable 1,000 unit PO DAILY meloxicam 15 mg tablet 15 mg PO DAILY PRN PRN (Reason: Pain) Patient Comments: TAKE 1 TABLET BY MOUTH ONCE DAILY WITH FOOD NEEDED ascorbic acid (vitamin C) [Vitamin C] 1,000 mg Tablet 1 g PO DAILY aspirin [Ecotrin Low Strength] 81 mg tablet,delayed release (DR/EC) 81 mg PO DAILY Qty: 90 0RF Primary Care Provider: Fly Parker Referrals: Fly Parker MD [Primary Care Provider] - Activity Restrictions/Additional Instructions: Thank you for trusting us with your care today! Your l ED evaluation today does not suggest a kidney stone, acute surgical pathology of the abdomen. While you are symptoms remain uncertain they do not appear to be life-threatening based on your vital signs, physical exam, labs and images. Please take Tylenol (2 pills, 650 mg), ibuprofen (2 pills, 400 mg) every 6 hours as needed for pain and fever control. Please take Zofran as needed for nausea vomiting control Please return to the emergency department if your symptoms change or worsen. Please follow with your primary care physician for further outpatient evaluation and management. Print Language: Latvian Disposition Disposition: Home, Self Care Discharge Date/Time: 09/03/23 13:34
[2023-09-03] MEDS: 0.9% Normal Saline (1000mL) 1,000 ML 999 ML IV (11:17)
--- NOTE | 2023-09-03 11:18 | CT_ITS ---
STUDY: CT ABDOMEN AND PELVIS WITH CONTRAST REASON FOR EXAM: Female, 62 years old. Right flank pain RADIATION DOSAGE (If Supplied By Facility): CTDIvol = ( 16.02 ) mGy, DLP = ( 1209.61 ) mGycm TECHNIQUE: Transaxial images were obtained from the dome of the diaphragm to the symphysis pubis without oral contrast. IV 100mL Isovue-300 was administered. Sagittal and coronal images were reconstructed. Individualized dose optimization techniques were used for this CT. COMPARISON: Comparison is made with prior study January 16, 2022. FINDINGS: Minimal degree of dependent bibasilar atelectasis. The visualized portions of the heart are within normal limits. Normal liver. Normal gallbladder and extrahepatic biliary system. Normal spleen. Normal pancreas. Normal bilateral adrenal glands. Right renal cysts. Nonobstructive 3.5 mm calculus in the midportion of the right kidney. No dominant left renal cyst measuring 3.1 cm x 3.6 cm. There is a small hiatal hernia. Normal small intestine. Normal colon. There is non-visualization of the appendix. There is scattered atherosclerotic calcification of the abdominal aorta, without a demonstrated aneurysm. Normal inferior vena cava. Normal retroperitoneum. Normal urinary bladder. There is absence of the uterus consistent with a prior hysterectomy. There is a right-sided inguinal hernia containing adipose tissue. There is evidence of prior left inguinal hernia repair with mesh. Normal osseous structures. CT/Abdomen/Pelvis W IV Cont ONLY IMPRESSION: Bilateral renal cysts. Nonobstructive calculus in the midportion of the right kidney. Hiatal hernia. Electronically Signed: Noel Liz MD at 12:53 EDT ,
[2023-09-03 11:22] LABS: Absolute Lymphocyte Count 1.59 X10^3/uL (0.83-4.51); Absolute Neutrophil Count 4.6 X10^3/uL (2.0-7.7); Basophil# 0.02 X10^3/uL; Basophil% 0.3 % (0-1); Eosinophil# 0.09 X10^3/uL; Eosinophils% 1.3 % (0-5); Hematocrit 35.7 % (37-47); Hemoglobin 11.6 g/dL (12.0-15.0); Lymphocyte # 1.59 X10^3/ul (0.83-4.51); Lymphocyte % 23.6 % (19-41); Mean Corp Hgb Conc 32.5 g/dL (32-36); Mean Corpuscular Hgb 28.3 pg (27.0-32.0); Mean Corpuscular Volume 87.1 fL (81-99); Mean Platelet Vol. 10.9 fl (6.2-12.0); Monocyte# 0.44 X10^3/uL; Monocyte% 6.5 % (0-10); NRBC Flagged by Analyzer 0 % (0-5); Neutrophil # 4.59 X10^3/uL (2.7-7.7); Platelet Count 219 K/mm3 (150-450); RBC Distribution Width CV 13.7 % (11.6-14.6); RBC Distribution Width SD 43.7 fl (35.1-43.9); White Blood Count 6.8 K/mm3 (4.4-11.0)
[2023-09-03 11:39] LABS: AST(SGOT) 30 U/L (15-37); Alanine Aminotransfer ALT/SGPT 49 U/L (13-56); Albumin, Serum 3.9 g/dL (3.2-5.0); Alkaline Phosphatase 79 U/L (45-117); Anion Gap 2 (5-15); BUN 23 mg/dL (7-18); BUN/Creat Ratio 34.9 RATIO (10-20); Bilirubin, Direct 0.09 mg/dL (0.00-0.30); Calcium,Total 10.1 mg/dL (8.5-10.1); Chloride 109 mmol/L (98-107); Creatinine, Serum 0.66 mg/dL (0.55-1.02); EST Glomerular Filtration Rate 97 mL/min (>60); Est Glom Filt Rate - Afr Amer 117 mL/min (>60); Estimated Creatinine Clearance 108.33 ml/min; Globulin 3.3 g/dL (2.2-4.2); Glucose 92 mg/dL (74-106); Lipase 31 U/L (13-75); Potassium 3.7 mmol/L (3.5-5.1); Protein, Total 7.2 g/dL (6.4-8.2); Sodium Level 136 mmol/L (136-145)
[2023-09-03] MEDS: Ondansetron 4 MG/2 ML Vial IV (12:08)
[2023-09-03] MEDS: Ketorolac 15 MG/ML Vial IV (12:08)
[2023-09-03 12:34] VITALS: BP 190/95; PULSE 80; RESP 16; O2SAT 99
[2023-09-03 12:50] LABS: Color, Urine Yellow (Yellow); Glucose, Dipstick Normal (Normal); Ketone-Dipstick Negative (Negative); Leukocyte Esterase-Dipstick Negative /ul (Negative); Nitrite-Dipstick Negative (Negative); Occult Blood-Urine 50 /ul (Negative); Protein-Dipstick 15 mg/dl (Negative); Urine Bilirubin Dipstick Negative (Negative); Urine Clarity Clear (Clear); Urine Urobilinogen Normal (Normal); Urine pH 6.5 (5.0 - 8.0)
[2023-09-03 13:00] VITALS: BP 161/95; PULSE 82; RESP 16; O2SAT 99
[2023-09-03 13:09] VITALS: BP 165/92; PULSE 78; RESP 16; TEMP 36.9; O2SAT 97
== END 2023-09-03 13:34 | disposition home or self-care (01) ==
PROVIDERS: Emergency Provider Emergency Medicine; PCP Family Medicine; Visit Provider Emergency Medicine
DX: R10.9 Unspecified abdominal pain (principal); D64.9 Anemia, unspecified; M54.9 Dorsalgia, unspecified; Z87.891 Personal history of nicotine dependence; K21.9 Gastro-esophageal reflux disease without esophagitis; E03.9 Hypothyroidism, unspecified; I10 Essential (primary) hypertension; Z87.442 Personal history of urinary calculi; Z98.51 Tubal ligation status; Z90.710 Acquired absence of both cervix and uterus; R31.9 Hematuria, unspecified
CPT/HCPCS: 74177; 80048; 80076; 81002; 83690; 85025; 99283; J7030; Q9967; A4216; J2405

== ENCOUNTER → 2023-11-18 | Outpatient (CLI) | payer OTHER, SELFPAY ==
--- NOTE | 2023-11-18 10:14 | BI_ITS ---
MAMMOGRAPHY - BILATERAL SCREENING REASON FOR EXAM: Female, 63 years old. Routine annual screening examination. PERTINENT HISTORY: Non-contributory. TECHNIQUE: Digital bilateral breast richard (3D mammographic acquisition) in the CC and MLO projections. 2-D mediolateral oblique (MLO) and craniocaudad (CC) views of both breasts were obtained. CAD: Full Field Digital Mammography with Computer Added Detection was performed. COMPARISON: Comparison is made with prior study dated September 11, 2022 and June 30, 2021. FINDINGS: Breast Composition: There are scattered areas of fibroglandular density. There are no dominant masses or suspicious calcifications. A clip marker is once again seen within a tiny nodule in the inferior medial aspect of the left breast. No other significant abnormalities are identified. There has been no significant change since the prior study. BI/SCRN MAMM (CAD)W/RICHARD BILAT IMPRESSION: Stable bilateral screening mammogram. Yearly follow-up mammogram recommended. (A) ASSESSMENT CATEGORY: BIRADS Category 2: Benign. A letter regarding these results will be sent to the patient by the facility within 30 days. Approximately 10% of breast cancers are not detected by mammography. A normal mammogram should not delay biopsy of a clinically suspicious abnormality. [id number] Electronically Signed: Noel Liz MD at 10:43 EDT ,
== END | disposition home or self-care (01) ==
LOC: OPBI 10:14
PROVIDERS: PCP Family Medicine; Referring Provider Family Medicine; Visit Provider Family Medicine
DX: Z12.31 Encounter for screening mammogram for malignant neoplasm of breast (principal)
CPT/HCPCS: 77063; 77067

== ENCOUNTER → 2024-06-19 | Outpatient (CLI) | payer OTHER, SELFPAY ==
--- NOTE | 2024-06-19 11:18 | RAD_ITS ---
PROCEDURE: Right knee radiographs, four views 06/19/2024 REASON FOR EXAM: PAIN IN KNEE TECHNIQUE: Four views of the right knee were obtained. COMPARISON: None available FINDINGS: Four views of the right knee were obtained. Mild osteopenia. No acute fracture or dislocation of the right knee. Moderate degenerative changes of the medial and patellofemoral compartments, to a mild degree involving the lateral compartment. No sizeable joint effusion. RAD/Knee 4 or More Views IMPRESSION: Osteopenia. No acute bony abnormality of the right knee. Mild/moderate tricompartmental degenerative changes of the right knee as above. No sizable right knee effusion. Reading Location: [facility]
== END | disposition home or self-care (01) ==
LOC: MTRAD 11:15
PROVIDERS: PCP Family Medicine; Referring Provider Family Medicine; Visit Provider Family Medicine
DX: M25.561 Pain in right knee (principal)
CPT/HCPCS: 73564

== ENCOUNTER 2024-07-28 15:30 | Outpatient (RCR) | payer OTHER, SELFPAY ==
--- NOTE | 2024-07-06 10:31 | HP.PTEVAL_ITS ---
Patient's Visit Information Visit Information Visit Information: ARLETH CALLAHAN is a 63 year old F referred to Physical Therapy by Dr. Tung Taylor MD with a diagnosis of R medial knee pain mild arthritis. Date of Evaluation: 07/06/24 Physical Therapist: Fly Tsai, DPT, OCS, CSCS Visit Plan Frequency: 2x /Week Duration: 4-6 Weeks Plan: 2x/week for 3-6 weeks for... IE HEP : HS, QS x 10 and SLR 3x10 all 2x/day adn avoid aggravating activity, pt to work every other day instead of two in a row and use ice as neded. Treat with US nonthermal to R medial knee joint line, manual knee PROM and leg pull, strength R hip and knee mat to WB to HEP. TENS with ice as needed. Subjective Subjective: Early April painted kitchen and was up and down step ladder alot. A couple days later it started hurting medially. Kept getting worse. Went to doctor eventually after 6- 8 weeks. Doctor thought meniscus and injection but patient did not want that. Saw doctor a week later after x ray. Keith said PT and anti inflammatory which made her sick. H/o SI pain and used to be on celebrex. usually rolling in bed is painful. Putting on shoes and socks on R side hurts to lift it. 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 Tried brace and wrap and wrap works better. Icing it wheen needed and tylenol 3x/day. Activitiy at home is pretty normal but avoids ladder now. Trying to be nice to knee. Sleeping is OK with knee straighter. Basic ADLs are harder but done. Stairs are painful and slow. Walked and gardening in summer prior. Pain R knee medial: Pain Intensity (Out of 10): 0 Pain Intensity Range: 0 and 5 Objective Objective: Walks with slight R antalgia today, worse with heel walking. I gait, I trasnfrs bed and chair. Steps reciprocally adn Without UE but pain R knee descending. Tender to palpation R medial join t line at meniscus, not in patella. + bounce home, hard to relax, - ant drawer, - varus and valgus, patellar grind. All on R. AROM R knee 0-112 limited by pain, L 0-135. SLR with slight lag avoiding end range extension R. hip and ankle aROM WFL B. strength hip 3+ abd and ext, 3+ R flexion vs 4 on L. knee ext and flexion R 3+, 4 on L. ankles 4+/5 B. Balance/Special Test Scores Lower Extremity Functional Score: 45 Goals Goal 1:: Gait and step without pain or antalgia Goal Time Frame: 4-6 Weeks Goal 2:: Pain in R knee 8%5 better at 1/10 at worst Goal Time Frame: 4-6 Weeks Goal 3:: I aprpoproate HEp to limit future problems Goal Time Frame: 4-6 Weeks Goal 4:: Put on shoes and socks without discomfort Goal Time Frame: 4-6 Weeks Goal 5:: work without increased pain Goal Time Frame: 4-6 Weeks Rehabilitation Potential Physical Therapy Diagnosis: R knee pain limiting comfortable function and suspicious meniscus Rehabilitation Potential: Fair Anticipated Interventions Patient/Client Instruction: Educate patient on: Condition and Plan of Care For the Purpose of:: To decrease pain, To increase ROM, To improve nutrient delivery to tissue, To improve muscle performance and motor function and To increase tolerance to activity/condition/position Therapeutic Exercise to Include: Strength training, Gait and locomotor training, Passive ROM and Active ROM For the Purpose of:: To decrease pain, To increase ROM and To improve nutrient delivery to tissue Manual Therapy Techniques to Include: Mobilization, Passive ROM and Soft tissue mobilization For the Purpose of:: To decrease pain, To decrease swelling/inflammation, To increase ROM and To improve nutrient delivery to tissue TENS: Yes Cryotherapy (ice pack, ice massage): Yes Ultrasound (thermal/non thermal): Yes (nontheermal) For the Purpose of:: To decrease pain, To decrease swelling/inflammation, To increase ROM and To improve nutrient delivery to tissue Text: Thank you for the opportunity to evaluate your patient. For Medicare and Medicare HMO plans, please review the plan of care and approve it. It will need to be FAXED BACK to us at [phone] for Medicare purposes. For Medicare only, by signing this I certify the plan of care. Please let me know if there are questions or concerns regarding this plan of care. Physician Signature: Date:
--- NOTE | 2024-08-19 08:07 | HP.PT.NRP ---
Patient Information Patient Information: ARLETH CALLAHAN was seen in my office for initial evaluation on 07/06/24. The following Plan of Care was established for this patient: POC Established Initial Frequency: 2x /Week Initial Duration: 4-6 Weeks Anticipated Interventions Patient/Client Instruction: Educate patient on: Condition and Plan of Care For the Purpose of:: To decrease pain, To increase ROM, To improve nutrient delivery to tissue, To improve muscle performance and motor function and To increase tolerance to activity/condition/position Therapeutic Exercise to Include: Strength training, Gait and locomotor training, Passive ROM and Active ROM For the Purpose of:: To decrease pain, To increase ROM and To improve nutrient delivery to tissue Manual Therapy Techniques to Include: Mobilization, Passive ROM and Soft tissue mobilization For the Purpose of:: To decrease pain, To decrease swelling/inflammation, To increase ROM and To improve nutrient delivery to tissue TENS: Yes Cryotherapy (ice pack, ice massage): Yes Ultrasound (thermal/non thermal): Yes (nontheermal) For the Purpose of:: To decrease pain, To decrease swelling/inflammation, To increase ROM and To improve nutrient delivery to tissue Last Seen Last Seen: This patient was last seen in our office 07/28/24. Pertinent comments regarding their Physical therapy will appear below: Pt seen 7 visits of POC and was 90% better. She was to f/u 3 weeks later to ensure consistency but has called to cancel as she is still doing well. I will discontinue her from my care at this time. At this point I will be discontinuing this patient from physical therapy. I would be happy to see this patient again in the future if found appropriate by the physician. Thank you! Fly Tsai, DPT, OCS, CSCS Balance/Gait/Functional tests Balance/Special Test Scores Lower Extremity Functional Score: 76
== END 2024-07-28 19:00 | disposition home or self-care (01) ==
LOC: PT 15:30
PROVIDERS: PCP Family Medicine; Referring Provider Family Medicine; Visit Provider Family Medicine
DX: M25.561 Pain in right knee (principal)
CPT/HCPCS: 97035; 97110; 97161

== ENCOUNTER → 2024-12-17 | Outpatient (CLI) | payer OTHER, SELFPAY ==
--- NOTE | 2024-12-17 11:00 | BI_ITS ---
EXAM: SCRN MAMM (CAD)W/RICHARD BILAT DATE: 12/17/2024 CLINICAL HISTORY: F, Age 64 y/o , SCREENING TECHNIQUE: Procedure Code: [id number] Modality: MG Procedure: SCRN MAMM (CAD)W/RICHARD BILAT COMPARISON: Prior exam(s) were compared FINDINGS: TISSUE DENSITY: The breasts are heterogeneously dense, which may obscure small masses. Bilateral Breast Mammographic Findings: No suspicious masses, calcifications or other abnormalities are identified. BI/SCRN MAMM (CAD)W/RICHARD BILAT IMPRESSION: No mammographic evidence of malignancy in either breast. OVERALL FINAL ASSESSMENT BI-RADS 1: NEGATIVE. RECOMMENDATION: Routine annual follow-up in 1 Year Additional Recommendation none A letter with findings and recommendations will be mailed to the patient. Reading Location: [id number]
== END | disposition home or self-care (01) ==
LOC: OPBI 10:49
PROVIDERS: PCP Family Medicine; Referring Provider Family Medicine; Visit Provider Family Medicine
DX: Z12.31 Encounter for screening mammogram for malignant neoplasm of breast (principal)
CPT/HCPCS: 77063; 77067